=== PATIENT | male | born 1965 | race Caucasian/White ===

== ENCOUNTER 2020-05-06 09:27 | Outpatient (REF) | payer OTHER, SELFPAY ==
[2020-05-06 10:40] LABS: Alanine Aminotransferase 33 U/L (0-40); Albumin Level 4.3 g/dL (3.5-5.0); Alkaline Phosphatase 64 U/L (39-117); Anion Gap 11 (12-20); Aspartate Amino Transferase 23 U/L (5-37); Bilirubin Total 0.6 mg/dL (0.0-1.0); Blood Urea Nitrogen 20 mg/dL (9-16); Calcium 8.9 mg/dL (8.4-10.2); Carbon Dioxide 26 mmol/L (22-29); Chloride 106 mmol/L (96-108); Cholesterol 167 mg/dL; Estimated Glomerular Filt Rate > 60; Glucose Random 112 mg/dL (60-115); HDL Cholesterol 30 mg/dL; LDL Cholesterol Calculated 101 mg/dl; Potassium 4.3 mmol/l (3.3-5.1); Sodium 139 mmol/L (135-145); Total Protein 6.9 g/dL (6.5-8.0); Triglycerides 180 mg/dL
== END 2020-05-06 09:28 | disposition home or self-care (01) ==
LOC: HO.LAB 09:27
PROVIDERS: PCP Internal Medicine; Visit Provider Nurse Practitioner Family
DX: I10 Essential (primary) hypertension (principal); E78.00 Pure hypercholesterolemia, unspecified
CPT/HCPCS: 80053; 80061

== ENCOUNTER → 2020-07-28 16:06 | Outpatient (BNVA) | payer OTHER, SELFPAY | PROVIDERS: PCP Internal Medicine; Visit Provider Student in an Organized Health Care Education/Training Program | DX: Z76.89 Persons encountering health services in other specified circumstances (principal) ==

== ENCOUNTER 2020-08-07 13:19 | Outpatient (REF) | payer OTHER, SELFPAY ==
--- NOTE | 2020-08-07 13:59 | XR_ITS ---
EXAMINATION: XR SHOULDER, RIGHT CLINICAL INFORMATION: Right shoulder pain. COMPARISON: None TECHNIQUE: AP external rotation, Grashey, scapular Y, and axillary views of the right shoulder. FINDINGS: The glenohumeral joint space is normal. There is mild reduction in the right AC joint space with periarticular spurring. No visible acute fracture, dislocation or subluxation seen. The soft tissues are normal. XR/XR shoulder RT min 2V IMPRESSION: Mild degenerative arthritic changes right AC joint. No visible acute fracture, dislocation or subluxation seen.
[2020-08-07 14:05] LABS: MANUAL DIFF FLAG NO
[2020-08-07 14:26] LABS: Basophils Percent Auto 0.3 % (0-2); Eosinophils Absolute Auto 0.2 X10*3/uL (0.0-0.4); Eosinophils Percent Auto 1.8 % (0-4); Hematocrit 41.2 % (42-52); Imm Gran Abs Auto 0.05 X10*3/uL (0.00-0.03); Imm Gran Pct Auto 0.5 % (0.0-0.4); Lymphocytes Absolute Auto 1.5 X10*3/uL (1.2-4.9); Lymphocytes Percent Auto 16.6 % (20-40); Mean Corpuscular Hemoglobin 30.6 pg (27.0-33.0); Mean Corpuscular Volume 90.2 fL (80-98); Mean Platelet Volume 11.6 fL (9.4-12.4); Monocytes Absolute Auto 0.6 X10*3/uL (0.1-1.2); Monocytes Percent Auto 6.5 % (2-11); Neutrophils Absolute Auto 6.8 X10*3/uL (2.0-8.3); Neutrophils Percent Auto 74.3 % (45-73); Platelet Count 322 X10*3/uL (160-400); Red Blood Count 4.57 X10*6/uL (4.60-5.80); Red Cell Distribution Width 13.1 % (11.0-16.0); White Blood Count 9.1 X10*3/uL (4.8-10.8)
[2020-08-07 14:57] LABS: Alanine Aminotransferase 40 U/L (0-40); Albumin Level 4.5 g/dL (3.5-5.0); Alkaline Phosphatase 74 U/L (39-117); Anion Gap 15 (12-20); Aspartate Amino Transferase 29 U/L (5-37); Bilirubin Total 0.4 mg/dL (0.0-1.0); Blood Urea Nitrogen 18 mg/dL (9-16); C Reactive Protein 0.77 mg/dL (< or = 0.50); Calcium 9.5 mg/dL (8.4-10.2); Carbon Dioxide 26 mmol/L (22-29); Chloride 102 mmol/L (96-108); Estimated Glomerular Filt Rate > 60; Glucose Random 178 mg/dL (60-115); Potassium 4.2 mmol/l (3.3-5.1); Sodium 139 mmol/L (135-145); Total Protein 7.3 g/dL (6.5-8.0)
[2020-08-07 15:19] LABS: Erythrocyte Sedimentation Rate 33 MM/HR (0-15)
== END 2020-08-07 13:20 | disposition home or self-care (01) ==
LOC: HO.LAB 13:19
PROVIDERS: PCP Internal Medicine; Visit Provider Student in an Organized Health Care Education/Training Program
DX: M05.9 Rheumatoid arthritis with rheumatoid factor, unspecified (principal); M67.911 Unspecified disorder of synovium and tendon, right shoulder
CPT/HCPCS: 36415; 73030; 80053; 85025; 85652; 86140

== ENCOUNTER → 2020-11-24 09:33 | Outpatient (BNVA) | payer OTHER, SELFPAY | PROVIDERS: PCP Internal Medicine; Visit Provider Student in an Organized Health Care Education/Training Program ==

== ENCOUNTER 2020-11-26 17:14 | Outpatient (REF) | payer OTHER, SELFPAY ==
[2020-11-26 17:39] LABS: MANUAL DIFF FLAG NO
[2020-11-26 17:41] LABS: Basophils Absolute Auto 0.1 X10*3/uL (0.0-0.2); Basophils Percent Auto 0.5 % (0-2); Eosinophils Absolute Auto 0.3 X10*3/uL (0.0-0.4); Eosinophils Percent Auto 2.9 % (0-4); Hematocrit 39.7 % (42-52); Hemoglobin 13.9 g/dl (14.0-18.0); Imm Gran Abs Auto 0.11 X10*3/uL (0.00-0.03); Imm Gran Pct Auto 1.1 % (0.0-0.4); Lymphocytes Absolute Auto 2.2 X10*3/uL (1.2-4.9); Lymphocytes Percent Auto 21.1 % (20-40); Mean Corpuscular Hemoglobin 31.8 pg (27.0-33.0); Mean Corpuscular Volume 90.8 fL (80-98); Mean Platelet Volume 11.6 fL (9.4-12.4); Monocytes Absolute Auto 0.8 X10*3/uL (0.1-1.2); Monocytes Percent Auto 7.7 % (2-11); Neutrophils Absolute Auto 6.9 X10*3/uL (2.0-8.3); Neutrophils Percent Auto 66.7 % (45-73); Platelet Count 304 X10*3/uL (160-400); Red Blood Count 4.37 X10*6/uL (4.60-5.80); Red Cell Distribution Width 13.1 % (11.0-16.0); White Blood Count 10.3 X10*3/uL (4.8-10.8)
[2020-11-26 17:59] LABS: Alanine Aminotransferase 42 U/L (0-40); Albumin Level 4.3 g/dL (3.5-5.0); Alkaline Phosphatase 73 U/L (39-117); Anion Gap 15 (12-20); Aspartate Amino Transferase 31 U/L (5-37); Bilirubin Total 0.5 mg/dL (0.0-1.0); Blood Urea Nitrogen 15 mg/dL (9-16); C Reactive Protein 0.49 mg/dL (< or = 0.50); Calcium 9.4 mg/dL (8.4-10.2); Carbon Dioxide 24 mmol/L (22-29); Chloride 105 mmol/L (96-108); Estimated Glomerular Filt Rate > 60; Glucose Random 99 mg/dL (60-115); Potassium 4.2 mmol/L (3.3-5.1); Sodium 140 mmol/L (135-145); Total Protein 7.3 g/dL (6.5-8.0)
[2020-11-26 18:25] LABS: Erythrocyte Sedimentation Rate 23 MM/HR (0-15)
== END 2020-11-26 17:15 | disposition home or self-care (01) ==
LOC: HO.LAB 17:14
PROVIDERS: PCP Internal Medicine; Visit Provider Student in an Organized Health Care Education/Training Program
DX: M05.9 Rheumatoid arthritis with rheumatoid factor, unspecified (principal)
CPT/HCPCS: 36415; 80053; 85025; 85652; 86140

== ENCOUNTER → 2021-02-25 10:31 | Outpatient (BNVA) | payer OTHER, SELFPAY | PROVIDERS: PCP Internal Medicine; Visit Provider Nurse Practitioner Family ==

== ENCOUNTER 2021-03-02 14:05 | Outpatient (REF) | payer OTHER, SELFPAY ==
[2021-03-02 15:11] LABS: MANUAL DIFF FLAG NO
[2021-03-02 15:16] LABS: Basophils Percent Auto 0.4 % (0-2); Eosinophils Absolute Auto 0.2 X10*3/uL (0.0-0.4); Eosinophils Percent Auto 2.2 % (0-4); Hematocrit 41.3 % (42-52); Imm Gran Abs Auto 0.07 X10*3/uL (0.00-0.03); Imm Gran Pct Auto 0.7 % (0.0-0.4); Lymphocytes Absolute Auto 1.7 X10*3/uL (1.2-4.9); Lymphocytes Percent Auto 18.2 % (20-40); Mean Corpuscular HGB Conc 33.9 g/dl (31.0-36.0); Mean Corpuscular Hemoglobin 29.7 pg (27.0-33.0); Mean Corpuscular Volume 87.7 fL (80-98); Mean Platelet Volume 12.7 fL (9.4-12.4); Monocytes Absolute Auto 0.9 X10*3/uL (0.1-1.2); Monocytes Percent Auto 9.2 % (2-11); Neutrophils Absolute Auto 6.5 X10*3/uL (2.0-8.3); Neutrophils Percent Auto 69.3 % (45-73); Platelet Count 241 X10*3/uL (160-400); Red Blood Count 4.71 X10*6/uL (4.60-5.80); Red Cell Distribution Width 12.8 % (11.0-16.0); White Blood Count 9.4 X10*3/uL (4.8-10.8)
[2021-03-02 15:39] LABS: Alanine Aminotransferase 45 U/L (0-40); Albumin Level 4.1 g/dL (3.5-5.0); Alkaline Phosphatase 91 U/L (39-117); Anion Gap 13 (12-20); Aspartate Amino Transferase 34 U/L (5-37); Bilirubin Total 0.4 mg/dL (0.0-1.0); Blood Urea Nitrogen 15 mg/dL (9-16); C Reactive Protein 1.11 mg/dL (< or = 0.50); Calcium 9.3 mg/dL (8.4-10.2); Carbon Dioxide 27 mmol/L (22-29); Chloride 106 mmol/L (96-108); Estimated Glomerular Filt Rate > 60; Glucose Random 148 mg/dL (60-115); Sodium 142 mmol/L (135-145); Total Protein 6.8 g/dL (6.5-8.0)
[2021-03-02 16:00] LABS: Erythrocyte Sedimentation Rate 34 MM/HR (0-15)
== END 2021-03-02 14:06 | disposition home or self-care (01) ==
LOC: HO.LAB 14:05
PROVIDERS: PCP Internal Medicine; Visit Provider Nurse Practitioner Family
DX: M05.9 Rheumatoid arthritis with rheumatoid factor, unspecified (principal)
CPT/HCPCS: 36415; 80053; 85025; 85652; 86140

== ENCOUNTER → 2021-05-28 09:46 | Outpatient (BNVA) | payer OTHER, SELFPAY | PROVIDERS: PCP Internal Medicine; Visit Provider Nurse Practitioner Family ==

== ENCOUNTER 2021-08-26 14:47 | Outpatient (REF) | payer OTHER, SELFPAY ==
[2021-08-26 15:06] LABS: MANUAL DIFF FLAG NO
[2021-08-26 15:33] LABS: Basophils Percent Auto 0.2 % (0-2); Eosinophils Absolute Auto 0.2 X10*3/uL (0.0-0.4); Eosinophils Percent Auto 2.4 % (0-4); Hemoglobin 13.5 g/dl (14.0-18.0); Imm Gran Abs Auto 0.06 X10*3/uL (0.00-0.03); Imm Gran Pct Auto 0.7 % (0.0-0.4); Lymphocytes Absolute Auto 1.7 X10*3/uL (1.2-4.9); Lymphocytes Percent Auto 18.7 % (20-40); Mean Corpuscular HGB Conc 33.8 g/dl (31.0-36.0); Mean Corpuscular Hemoglobin 29.6 pg (27.0-33.0); Mean Corpuscular Volume 87.7 fL (80.0-98.0); Mean Platelet Volume 12.1 fL (9.4-12.4); Monocytes Absolute Auto 0.9 X10*3/uL (0.1-1.2); Monocytes Percent Auto 9.4 % (2-11); Neutrophils Absolute Auto 6.3 x10*3/uL (2.0-8.3); Neutrophils Percent Auto 68.6 % (45-73); Platelet Count 246 X10*3/uL (160-400); Red Blood Count 4.56 X10*6/uL (4.60-5.80); Red Cell Distribution Width 13.2 % (11.0-16.0); White Blood Count 9.2 X10*3/uL (4.8-10.8)
[2021-08-26 16:15] LABS: Erythrocyte Sedimentation Rate 51 MM/HR (0-15)
[2021-08-26 18:53] LABS: Alanine Aminotransferase 40 U/L (0-40); Alkaline Phosphatase 75 U/L (39-117); Anion Gap 12 (12-20); Aspartate Amino Transferase 27 U/L (5-37); Bilirubin Total 0.3 mg/dL (0.0-1.0); Blood Urea Nitrogen 19 mg/dL (9-16); C Reactive Protein 0.88 mg/dL (< or = 0.50); Calcium 9.3 mg/dL (8.4-10.2); Carbon Dioxide 25 mmol/L (22-29); Chloride 108 mmol/L (96-108); Estimated Glomerular Filt Rate > 60; Glucose Random 154 mg/dL (60-115); Potassium 4.1 mmol/L (3.3-5.1); Sodium 141 mmol/L (135-145); Total Protein 6.6 g/dL (6.5-8.0)
== END 2021-08-26 14:48 | disposition home or self-care (01) ==
LOC: HO.LAB 14:47
PROVIDERS: PCP Internal Medicine; Visit Provider Nurse Practitioner Family
DX: M05.9 Rheumatoid arthritis with rheumatoid factor, unspecified (principal)
CPT/HCPCS: 36415; 80053; 85025; 85652; 86140

== ENCOUNTER → 2021-08-27 10:01 | Outpatient (BNVA) | payer OTHER, SELFPAY | PROVIDERS: PCP Internal Medicine; Visit Provider Nurse Practitioner Family ==

== ENCOUNTER 2021-09-10 22:10 | Emergency (ER) | payer OTHER, SELFPAY ==
--- NOTE | ~2021-09-10 | XR_ITS ---
EXAMINATION: XR CHEST CLINICAL INFORMATION: Chest pain COMPARISON: Chest x-ray 11/27/2018 TECHNIQUE: Frontal view of the chest was obtained. FINDINGS: The lungs are well-expanded and clear. Heart size is borderline enlarged. Pulmonary vascularity is normal. There is mild spondylosis dorsal spine. No lytic process seen. XR/XR chest 1V IMPRESSION: Borderline cardiomegaly without acute process. No change from 11/27/2018
[2021-09-10 22:14] VITALS: PULSE 84; RESP 16; TEMP 36.7; O2SAT 97; BMI 43.2
--- NOTE | 2021-09-10 22:16 | ECG_ITS ---
Test Reason : chest pain Blood Pressure : / mmHG Vent. Rate : 069 BPM Atrial Rate : 069 BPM P-R Int : 172 ms QRS Dur : 102 ms QT Int : 396 ms P-R-T Axes : 037 043 007 degrees QTc Int : 424 ms Normal sinus rhythm Incomplete right bundle branch block Nonspecific T wave abnormality Abnormal ECG When compared with ECG of 12-MAR-2016 09:26, Nonspecific T wave abnormality now evident in Anterolateral leads Referred By: Generic ED Physician Electronically Signed By:DALTON BOYD
[2021-09-10 22:17] VITALS: BP 190/84
[2021-09-10 22:36] LABS: MANUAL DIFF FLAG NO
[2021-09-10 22:38] LABS: Basophils Absolute Auto 0.1 X10*3/uL (0.0-0.2); Basophils Percent Auto 0.3 % (0-2); Eosinophils Absolute Auto 0.2 X10*3/uL (0.0-0.4); Hematocrit 40.6 % (42.0-52.0); Hemoglobin 13.9 g/dl (14.0-18.0); Imm Gran Pct Auto 0.7 % (0.0-0.4); Lymphocytes Absolute Auto 1.6 X10*3/uL (1.2-4.9); Lymphocytes Percent Auto 10.8 % (20-40); Mean Corpuscular HGB Conc 34.2 g/dl (31.0-36.0); Mean Corpuscular Hemoglobin 29.8 pg (27.0-33.0); Mean Corpuscular Volume 86.9 fL (80.0-98.0); Mean Platelet Volume 11.8 fL (9.4-12.4); Neutrophils Absolute Auto 11.6 x10*3/uL (2.0-8.3); Neutrophils Percent Auto 80.2 % (45-73); Platelet Count 268 X10*3/uL (160-400); Red Blood Count 4.67 X10*6/uL (4.60-5.80); Red Cell Distribution Width 13.3 % (11.0-16.0); White Blood Count 14.5 X10*3/uL (4.8-10.8)
[2021-09-10 22:52] LABS: Anion Gap 11 (12-20); Blood Urea Nitrogen 15 mg/dL (9-16); Calcium 9.5 mg/dL (8.4-10.2); Carbon Dioxide 30 mmol/L (22-29); Chloride 100 mmol/L (96-108); Creatinine Clr Calc Pharmacy 110.2; Estimated Glomerular Filt Rate > 60; Glucose Random 196 mg/dL (60-115); Potassium 4.4 mmol/L (3.3-5.1); Sodium 137 mmol/L (135-145)
[2021-09-10 23:00] LABS: Troponin-I High Sensitivity 7.1 ng/L (<3.5-35.0)
--- NOTE | 2021-09-10 23:34 | ED.CHESTPAIN ---
HPI - Chest Pain General Chief Complaint: Chest Pain Stated Complaint: chest pain Time Seen by Provider: 09/10/21 22:11 Source: patient Mode of arrival: ambulatory Limitations: no limitations History of Present Illness HPI narrative: symptoms worse after eating crazy sharif pasta tonight - chicken/sausage. complaint: chest pain and chest heaviness Onset (ago): hour(s) (started around 7pm) Timing of current episode: constant Prior episodes: Yes Onset: during rest Pain location: substernal Pain radiation: none (but he did feel his arm was cold) Severity: moderate Quality: heaviness Relieving factors: nothing Exacerbating factors: nothing Context: other (had COVID at start of July) Associated symptoms: nausea and dyspnea Treatment prior to arrival: none Related Data Home Medications Medication Instructions Recorded Confirmed tadalafil 20 mg tablet (Cialis) 20 mg PO DAILY PRN 04/23/20 02/25/21 Previous Rx's Medication Instructions Recorded baclofen 10 mg tablet 10 mg PO BEDTIME PRN #90 tab 11/24/20 amlodipine 5 mg tablet 5 mg PO DAILY #90 tab 11/26/20 gemfibrozil 600 mg tablet 600 mg PO BID #180 tab 05/03/21 leflunomide 10 mg tablet 10 mg PO DAILY #30 tab 08/27/21 ondansetron 4 mg disintegrating 4 mg PO Q8H PRN #20 tab 09/11/21 tablet Allergies Allergy/AdvReac Type Severity Reaction Status Date / Time No Known Allergies Allergy Verified 08/27/21 10:17 [No Known Allergies*] Review of Systems Review of Systems: Constitutional : No Weight loss, No Fever, No Chills ENT/Mouth : No sore throat, No Rhinorrhea Eyes: No Eye Pain, No Swelling Cardiovascular : pos Chest Pain, pos SOB, no Dyspnea on Exertion, No Orthopnea, No Edema, No Palpitations Respiratory : No Cough, No Sputum Gastrointestinal : pos Nausea, No Vomiting, No Diarrhea, No abdominal Pain, No Hematochezia, No Melena Genitourinary : No Dysuria, No Urinary Frequency Musculoskeletal : No joint pain, No Myalgias, No Joint Swelling Skin : No Skin Lesions, No rash Neuro : No Weakness, No Numbness, No Dizziness, No Headache Psych : No Anxiety/Panic, No Depression Heme/Lymph: No Bruising, No Lymphadenopathy Endocrine : No Polyuria, No Polydipsia All other systems reviewed and are negative [facility] Past Medical History Attestation statement: The following information was validated with the patient. Medical History Encounter for general adult medical examination without abnormal findings Seropositive rheumatoid arthritis Surgical History H/O rectal polypectomy Family History Family History Brother No problems noted. Brother No problems noted. Sister No problems noted. Sister No problems noted. Social History Social History Alcohol intake: current Patient Tobacco Use Status: Never used Tobacco e-Cigarette/Vaping Use: Never Used Advance Directives: No Physical Exam Vital Signs: Vital Signs: Last Vital Signs Temp 98.0 F 09/10/21 22:14 Pulse 70 09/11/21 02:05 Resp 13 09/11/21 02:05 BP 149/68 H 09/11/21 02:05 Pulse Ox 96 09/11/21 02:05 BMI result Body Mass Index 43.2 Appearance: Alert. Oriented X3. No acute distress. Eyes: Pupils equal, round and reactive to light. ENT: Pharynx normal. Neck: Normal inspection. Neck supple. CVS: Normal heart rate and rhythm. Pulses normal. L radial pulse 2+ BCR in all digits Respiratory: No respiratory distress. Breath sounds normal. Abdomen: Soft and non-tender. Skin: Skin warm and dry. Normal skin color. Normal skin turgor. Extremities: trace pitting lower extremity edema. No calf ttp 2+ DP pulses bilaterally Neuro: Oriented X 3. No motor deficit. No sensory deficit. Course Course Course Narrative: patient reports improvement - reportedly vomited after nitro and after that he felt much better and had relief of his symptoms after the vomit? his dinner as possible cause of his discomfort tonight repeat trop negative at 6hr cassia EKG no sig changes from 2016 (has had inf t wave inversions and nonspecific t wave changes in ant / lateral ) has slight new incomplete RBBB but no EKG since 2016 ddimer negative, distal pulses intact, BNP negative suspect possible GI cause but given risk factors will discuss follow up with his PCP MDM - Chest Pain MDM Narrative Medical decision making narrative: 56 yo male with hx of HTN, HLD RA on immunomodulator, chronic back pain, LOGAN on CPAP comes in with c/o chest pain that started around 7pm. His family does have hx of CAD in the past but he himself has not had issues (has had visits for chest pain). At this time will obtain troponin x 2, nitro for pain, EKG - Could be acs, dissection seems unlikely, PE unlikely no hypoxia not pleuritic no tachcyardia - dispo per results and findings. Lab Data Result diagrams: 09/10/21 22:31 09/10/21 22:31 Labs: Lab Results 09/10/21 09/10/21 09/10/21 Range/Units 22:31 22:31 22:31 WBC 14.5 H (4.8-10.8) X10*3/uL RBC 4.67 (4.60-5.80) X10*6/uL Hgb 13.9 L (14.0-18.0) g/dl Hct 40.6 L (42.0-52.0) % MCV 86.9 (80.0-98.0) fL MCH 29.8 (27.0-33.0) pg MCHC 34.2 (31.0-36.0) g/dl RDW 13.3 (11.0-16.0) % Plt Count 268 (160-400) X10*3/uL MPV 11.8 (9.4-12.4) fL Immature Gran % (Auto) 0.7 H (0.0-0.4) % Neut % (Auto) 80.2 H (45-73) % Lymph % (Auto) 10.8 L (20-40) % [place] % (Auto) 7.0 (2-11) % Eos % (Auto) 1.0 (0-4) % Baso % (Auto) 0.3 (0-2) % Lymph # (Auto) 1.6 (1.2-4.9) X10*3/uL [place] # (Auto) 1.0 (0.1-1.2) X10*3/uL Eos # (Auto) 0.2 (0.0-0.4) X10*3/uL Baso # (Auto) 0.1 (0.0-0.2) X10*3/uL Abs Immat Gran (auto) 0.10 H (0.00-0.03) X10*3/uL Absolute Neuts (auto) 11.6 H (2.0-8.3) x10*3/uL Absolute Nucleated RBC 0.000 (0.0-0.012) X10*3/uL Nucleated RBC % (auto) 0.0 (0.0-0.2) /100WBC PT (9.9-13.0) SEC INR (0.9-1.1) D-Dimer High Sensitivty NG/ML Sodium 137 (135-145) mmol/L Potassium 4.4 (3.3-5.1) mmol/L Chloride 100 (96-108) mmol/L Carbon Dioxide 30 H (22-29) mmol/L Anion Gap 11 L (12-20) BUN 15 (9-16) mg/dL Creatinine 0.89 (0.5-1.4) mg/dL Estim Creat Clear Calc 110.2 Estimated GFR > 60 Random Glucose 196 H (60-115) mg/dL Calcium 9.5 (8.4-10.2) mg/dL Troponin I High Sens 7.1 (<3.5-35.0) ng/L B-Natriuretic Peptide < 10 (<100) pg/mL 09/11/21 09/11/21 Range/Units 01:12 01:12 WBC (4.8-10.8) X10*3/uL RBC (4.60-5.80) X10*6/uL Hgb (14.0-18.0) g/dl Hct (42.0-52.0) % MCV (80.0-98.0) fL MCH (27.0-33.0) pg MCHC (31.0-36.0) g/dl RDW (11.0-16.0) % Plt Count (160-400) X10*3/uL MPV (9.4-12.4) fL Immature Gran % (Auto) (0.0-0.4) % Neut % (Auto) (45-73) % Lymph % (Auto) (20-40) % [place] % (Auto) (2-11) % Eos % (Auto) (0-4) % Baso % (Auto) (0-2) % Lymph # (Auto) (1.2-4.9) X10*3/uL [place] # (Auto) (0.1-1.2) X10*3/uL Eos # (Auto) (0.0-0.4) X10*3/uL Baso # (Auto) (0.0-0.2) X10*3/uL Abs Immat Gran (auto) (0.00-0.03) X10*3/uL Absolute Neuts (auto) (2.0-8.3) x10*3/uL Absolute Nucleated RBC (0.0-0.012) X10*3/uL Nucleated RBC % (auto) (0.0-0.2) /100WBC PT 12.7 (9.9-13.0) SEC INR 1.1 (0.9-1.1) D-Dimer High Sensitivty < 150 NG/ML Sodium (135-145) mmol/L Potassium (3.3-5.1) mmol/L Chloride (96-108) mmol/L Carbon Dioxide (22-29) mmol/L Anion Gap (12-20) BUN (9-16) mg/dL Creatinine (0.5-1.4) mg/dL Estim Creat Clear Calc Estimated GFR Random Glucose (60-115) mg/dL Calcium (8.4-10.2) mg/dL Troponin I High Sens 6.1 (<3.5-35.0) ng/L B-Natriuretic Peptide (<100) pg/mL ECG Data ECG #1: Attestation: I personally reviewed and interpreted this ECG as follows: ECG interpretation date: 09/10/21 ECG interpretation time: 23:48 Interpretation: Rate: 69 Rhythm: NSR [place]: normal Normal P waves. Normal JONN. widened QRS complex. ST T wave : inverted III and aVF, nonspecific anterios leads no JERAMY qTC: normal prior studies: no sig changes from 2016 The study has been interpreted contemporaneously by me. EKG#2 Rate: 81 Rhythm: NSR [place]: left Normal P waves. Normal JONN. Normal QRS complex. ST T wave : no JERAMY, inverted III and aVF, nonspecific anterior leads qTC: normal prior studies: no sig change The study has been interpreted contemporaneously by me. . Discharge Plan Discharge Clinical Impression: Chest pain Qualifiers: Chest pain type: precordial pain Qualified Code(s): R07.2 - Precordial pain Vomiting Qualifiers: Vomiting type: unspecified Nausea presence: with nausea Qualified Code(s): R11.2 - Nausea with vomiting, unspecified Patient Disposition: Home, Self-Care Instructions: Chest Pain (ED), Acute Nausea and Vomiting (ED) Additional Instructions: return to ED for any worsening symptoms or concerns need to call primary care doctor for outpatient stress test avoid any heavy rich foods for 3 days Prescriptions: New ondansetron 4 mg tablet,disintegrating 4 mg PO Q8H PRN (Reason: nausea and vomiting) Qty: 20 0RF No Action amlodipine 5 mg tablet 5 mg PO DAILY Qty: 90 8RF gemfibrozil 600 mg tablet 600 mg PO BID Qty: 180 8RF tadalafil [Cialis] 20 mg tablet 20 mg PO DAILY PRN0RF Rx Instructions: administer approximately 30min before sexual activity; do not use more than 1 dose per 24hrs baclofen 10 mg tablet 10 mg PO BEDTIME PRN (Reason: spasms) Qty: 90 1RF leflunomide 10 mg tablet 10 mg PO DAILY Qty: 30 2RF Referrals: Eduardo Mcclain MD [Primary Care Provider] - 2 days (Monday) Stand Alone Forms: Work/School Release
[2021-09-10 23:49] VITALS: BP 204/95; PULSE 77
[2021-09-10] MEDS: Nitroglycerin 0.4 MG TAB.SUBL SUBLINGUAL (23:49)
[2021-09-10] MEDS: ondansetron HCL 4 MG/2 ML VIAL IVPUSH (23:51)
[2021-09-10] MEDS: Aspirin 81 MG TAB.CHEW 324 MG PO (23:51)
--- NOTE | 2021-09-11 00:11 | PC.NURSE ---
PT vomited after receiving IV zofran. PT stated that he felt better afterwards. BP is still elevated , PT is reporting decreased CP.
[2021-09-11 00:12] VITALS: BP 173/93; PULSE 94; RESP 18; O2SAT 95
[2021-09-11 00:34] LABS: B Type Natriuretic Peptide < 10 pg/mL (<100)
[2021-09-11 01:22] LABS: INTERNATIONAL NORM RATIO 1.1 (0.9-1.1); Prothrombin Time 12.7 SEC (9.9-13.0)
[2021-09-11 01:39] LABS: Troponin-I High Sensitivity 6.1 ng/L (<3.5-35.0)
[2021-09-11 02:05] VITALS: BP 149/68; PULSE 70; RESP 13; O2SAT 96
[2021-09-11 02:07] LABS: D Dimer High Sensitivity < 150 NG/ML
[2021-09-11] MEDS: Lidocaine HCl Viscous 2 % 15 ML SOLUTION MUCOUS MEM (02:22)
[2021-09-11] MEDS: Magnesium Hydrox/Alum Hydrox 30 ML ORAL.SUSP PO (02:22)
== END 2021-09-11 03:02 | disposition home or self-care (01) ==
PROVIDERS: Emergency Provider Emergency Medicine; PCP Internal Medicine
DX: R07.2 Precordial pain (principal); R11.2 Nausea with vomiting, unspecified; R60.0 Localized edema; R06.02 Shortness of breath; I10 Essential (primary) hypertension; E66.01 Morbid (severe) obesity due to excess calories
CPT/HCPCS: 36415; 71045; 80048; 83880; 84484; 85025; 85379; 85610; 93005; 96374; 99284; J2405

== ENCOUNTER → 2021-10-28 14:17 | Outpatient (BNVA) | payer OTHER, SELFPAY | PROVIDERS: PCP Internal Medicine; Referring Provider Internal Medicine; Visit Provider Internal Medicine Cardiovascular Disease | DX: Z13.89 Encounter for screening for other disorder (principal) ==

== ENCOUNTER → 2021-11-25 07:57 | Outpatient (REF) | payer OTHER, SELFPAY ==
--- NOTE | 2021-11-25 08:02 | CA_ITS ---
Acquisition Time: 2021-11-25 08:15:06 Total Exercise Time: 00:07:02 Test Indications: CP Medications: SEE CHART Protocol: LINA Max HR: 146 BPM 89% of Pred: 164 BPM Max BP: 160/080 mmHG Max Work Load: 8.5 METS Exercise stress test with exercise 7 min 2 sec of Lina protocol, with moderate shortness of breath, no chest discomfort, with isolated PVCs in stage 3, with normotensive response to exercise, with baseline and later recovery EKG showing T wave abnormality/ inversion inferiorly and V3-V6, with EKG at peak exercise showing mild ST abnormality. Overall nondiagnostic for ischemia. Will order an exercise nuclear stress test to further eval for ischemia. Test reviewed with Dr Garcia Referred By: Mendoza Garcia Overread By: AMOR HOFF
== END ==
LOC: HO.CARD 07:57
PROVIDERS: PCP Internal Medicine; Visit Provider Internal Medicine Cardiovascular Disease
DX: R07.9 Chest pain, unspecified (principal)
CPT/HCPCS: 93017

== ENCOUNTER → 2021-12-09 08:00 | Outpatient (BNVA) | payer OTHER, SELFPAY | PROVIDERS: PCP Internal Medicine; Visit Provider Nurse Practitioner Family | DX: M05.9 Rheumatoid arthritis with rheumatoid factor, unspecified (principal) ==

== ENCOUNTER 2021-12-15 13:31 | Outpatient (REF) | payer OTHER, SELFPAY ==
[2021-12-15 13:49] LABS: MANUAL DIFF FLAG NO
[2021-12-15 14:20] LABS: Basophils Absolute Auto 0.1 X10*3/uL (0.0-0.2); Basophils Percent Auto 0.7 % (0-2); Eosinophils Absolute Auto 0.3 X10*3/uL (0.0-0.4); Eosinophils Percent Auto 3.2 % (0-4); Hematocrit 41.6 % (42.0-52.0); Hemoglobin 14.1 g/dl (14.0-18.0); Imm Gran Abs Auto 0.06 X10*3/uL (0.00-0.03); Imm Gran Pct Auto 0.7 % (0.0-0.4); Lymphocytes Absolute Auto 1.7 X10*3/uL (1.2-4.9); Lymphocytes Percent Auto 20.5 % (20-40); Mean Corpuscular HGB Conc 33.9 g/dl (31.0-36.0); Mean Corpuscular Hemoglobin 29.1 pg (27.0-33.0); Mean Platelet Volume 12.6 fL (9.4-12.4); Monocytes Absolute Auto 0.8 X10*3/uL (0.1-1.2); Neutrophils Absolute Auto 5.5 x10*3/uL (2.0-8.3); Neutrophils Percent Auto 65.9 % (45-73); Platelet Count 259 X10*3/uL (160-400); Red Blood Count 4.84 X10*6/uL (4.60-5.80); Red Cell Distribution Width 13.5 % (11.0-16.0); White Blood Count 8.4 X10*3/uL (4.8-10.8)
[2021-12-15 14:46] LABS: Alanine Aminotransferase 92 U/L (0-40); Alkaline Phosphatase 118 U/L (39-117); Anion Gap 13 (12-20); Aspartate Amino Transferase 56 U/L (5-37); Bilirubin Total 0.3 mg/dL (0.0-1.0); Blood Urea Nitrogen 13 mg/dL (9-16); C Reactive Protein 0.69 mg/dL (< or = 0.50); Calcium 9.3 mg/dL (8.4-10.2); Carbon Dioxide 24 mmol/L (22-29); Chloride 105 mmol/L (96-108); Estimated Glomerular Filt Rate > 60; Glucose Random 170 mg/dL (60-115); Potassium 4.1 mmol/L (3.3-5.1); Sodium 138 mmol/L (135-145); Total Protein 6.8 g/dL (6.5-8.0)
[2021-12-15 14:59] LABS: Erythrocyte Sedimentation Rate 29 MM/HR (0-15)
== END 2021-12-15 13:32 | disposition home or self-care (01) ==
LOC: HO.LAB 13:31
PROVIDERS: PCP Internal Medicine; Visit Provider Nurse Practitioner Family
DX: M05.9 Rheumatoid arthritis with rheumatoid factor, unspecified (principal)
CPT/HCPCS: 36415; 80053; 85025; 85652; 86140

== ENCOUNTER → 2021-12-30 14:46 | Outpatient (REF) | payer OTHER, SELFPAY ==
--- NOTE | 2021-12-30 14:48 | CA_ITS ---
Transthoracic Echocardiogram Patient (Last, First, Middle): Tru Chavez, Gender: Male Date of : 1965 Age: 56 Procedure Date: 12/30/2021 Procedure Type: Transthoracic Echocardiogram Location: OP Height: 165.1 cm Weight: 114.31 kg BSA: 2.18 m2 Heart Rate: bpm BP: 148 / 88 mmHg Parquetry Layer: DERRELL Referring MD: Mendoza Garcia MD Symptoms: R07.9 - Chest pain, unspecified Study Quality: Technically Difficult/Contrast ECG Rhythm: Sinus Conclusions: - The left ventricular systolic function is normal. The visually estimated ejection fraction is between 60-65%. - No obvious valvular pathology seen on this study. Findings Procedure Information Contrast agent, definity, is being given per protocol without apparent complications. Left Ventricle Normal left ventricular cavity size. The left ventricular systolic function is normal. The visually estimated ejection fraction is between 60-65%. There is no evidence of regional wall motion abnormalities. Diastolic function is normal for age. There is mild septal asymmetric hypertrophy. Right Ventricle Normal right ventricular cavity size and systolic function. Atria Both atria are normal in size. Aortic Valve The aortic valve was not well visualized. There is no aortic valve stenosis. There is no aortic valve regurgitation. Mitral Valve The mitral valve appears normal. There is no mitral valve regurgitation. There is no mitral valve stenosis. Pulmonic Valve The pulmonic valve is likely normal. Tricuspid Valve There is no tricuspid valve regurgitation. Tricuspid regurgitation envelope is inadequate for calculation of right ventricular systolic pressure. Great Vessels The asc aorta is normal in size. Venous The inferior vena cava is normal in size and collapses greater than 50% with inspiration. Pericardium/Pleural There is no evidence of pericardial effusion. Prior Study Comparison No significant change compared to prior study dated: 03/24/2016. Recommendations, Care & Conclusions No obvious valvular pathology seen on this study. Measurements 2D Linear Measurements IVSd: 1.09 0.6-0.9/0.6-1.0 cm LVIDd: 5.28 3.9-5.3/4.2-5.9 cm LVIDd Index: 2.42 2.4-3.2/2.2-3.1 cm/m2 LVIDs: 3.92 2.0-3.6 cm LVPWd: 0.96 0.7-1.1 cm LA Diam: 3.60 2.7-3.8/3.0-4.0 cm LAIDs Index: 1.65 1.5-2.3 cm/m2 LV Mass: 257.00 67-162/88-224 g LV Mass Index: 117.89 43-95/49-115 g/m2 LVOT Diam: 2.00 3.0+(-)1.3 cm 2D Systolic Function EF 4C: 72.90 >55% EF 2C: 69.60 >55% EF BiP: 71.10 >55% Mitral Valve MV Pk E: 1.06 MV PK A: 0.87 MV Decel Time: 302.00 E/A: 1.20 E'Lateral: 8.92 E'Medial: 7.40 E/E' Med: 14.30 E/E' Lat: 11.90 PHT: 88.00 MVA PHT: 2.50 Decel [place]: 3.52 Aortic Valve AoV Pk David: 1.48 AoV Mn David: 0.93 AoV VTI: 0.31 AoV Pk Grad: 9.00 Aov Mn Grad: 4.00 CATHERINE Cont.VTI: 2.94 LVOT LVOT Pk David: 1.30 LVOT Mn David: 0.83 LVOT VTI: 0.29 LVOT Pk Grad: 7.00 LVOT Mn Grad: 3.00 LVOT Diam: 2.00 LVOT Area: 3.14 Diastolic Function MV Pk E: 1.06 MV Pk A: 0.87 E/A: 1.20 E'Medial: 7.40 E/E' Med: 14.30 E' Laterial: 8.92 E/E' Lat: 11.90 Right Ventricle TAPSE (mm): 25.80 TVS' David: 15.10 Tricuspid Valve RA Press: 3.00 Great Vessels Aorta Sinus of Valsalva: 3.12 2.0-3.[address] [place]: 2.75 1.7-3.4 cm Ao Asc: 2.90 2.1-3.4 cm Updated in Other Vendor System with Status of Final Jeromy Schaefer MD electronically signed on 01/01/2022 2:27:25 PM with status of Final
== END ==
LOC: HO.CARD 14:46
PROVIDERS: PCP Internal Medicine; Visit Provider Internal Medicine Cardiovascular Disease
DX: R07.9 Chest pain, unspecified (principal)
CPT/HCPCS: 93306; Q9957

== ENCOUNTER 2022-01-12 12:59 | Outpatient (REF) | payer OTHER, SELFPAY ==
[2022-01-12 13:14] LABS: MANUAL DIFF FLAG NO
[2022-01-12 14:08] LABS: Basophils Absolute Auto 0.1 X10*3/uL (0.0-0.2); Basophils Percent Auto 0.6 % (0-2); Eosinophils Absolute Auto 0.2 X10*3/uL (0.0-0.4); Eosinophils Percent Auto 2.1 % (0-4); Hematocrit 44.4 % (42.0-52.0); Hemoglobin 14.4 g/dl (14.0-18.0); Imm Gran Abs Auto 0.05 X10*3/uL (0.00-0.03); Imm Gran Pct Auto 0.6 % (0.0-0.4); Lymphocytes Absolute Auto 1.6 X10*3/uL (1.2-4.9); Lymphocytes Percent Auto 18.8 % (20-40); Mean Corpuscular HGB Conc 32.4 g/dl (31.0-36.0); Mean Corpuscular Hemoglobin 28.7 pg (27.0-33.0); Mean Corpuscular Volume 88.4 fL (80.0-98.0); Mean Platelet Volume 12.5 fL (9.4-12.4); Monocytes Absolute Auto 0.8 X10*3/uL (0.1-1.2); Monocytes Percent Auto 9.5 % (2-11); Neutrophils Absolute Auto 5.6 x10*3/uL (2.0-8.3); Neutrophils Percent Auto 68.4 % (45-73); Platelet Count 273 X10*3/uL (160-400); Red Blood Count 5.02 X10*6/uL (4.60-5.80); Red Cell Distribution Width 13.3 % (11.0-16.0); White Blood Count 8.2 X10*3/uL (4.8-10.8)
[2022-01-12 14:42] LABS: Alanine Aminotransferase 214 U/L (0-40); Albumin Level 4.2 g/dL (3.5-5.0); Alkaline Phosphatase 188 U/L (39-117); Anion Gap 12 (12-20); Aspartate Amino Transferase 152 U/L (5-37); Bilirubin Total 0.5 mg/dL (0.0-1.0); Blood Urea Nitrogen 15 mg/dL (9-16); C Reactive Protein 0.74 mg/dL (< or = 0.50); Calcium 9.3 mg/dL (8.4-10.2); Carbon Dioxide 27 mmol/L (22-29); Chloride 105 mmol/L (96-108); Estimated Glomerular Filt Rate > 60; Glucose Random 114 mg/dL (60-115); Potassium 4.5 mmol/L (3.3-5.1); Sodium 139 mmol/L (135-145)
[2022-01-12 15:13] LABS: Erythrocyte Sedimentation Rate 45 MM/HR (0-15)
== END 2022-01-12 13:00 | disposition home or self-care (01) ==
LOC: HO.LAB 12:59
PROVIDERS: PCP Internal Medicine; Visit Provider Nurse Practitioner Family
DX: M05.9 Rheumatoid arthritis with rheumatoid factor, unspecified (principal)
CPT/HCPCS: 36415; 80053; 85025; 85652; 86140

== ENCOUNTER 2022-01-13 12:52 | Outpatient (REF) | payer OTHER, SELFPAY ==
[2022-01-13 13:44] LABS: Alanine Aminotransferase 206 U/L (0-40); Albumin Level 4.2 g/dL (3.5-5.0); Alkaline Phosphatase 199 U/L (39-117); Anion Gap 11 (12-20); Aspartate Amino Transferase 116 U/L (5-37); Bilirubin Total 0.5 mg/dL (0.0-1.0); Blood Urea Nitrogen 14 mg/dL (9-16); Calcium 9.5 mg/dL (8.4-10.2); Carbon Dioxide 29 mmol/L (22-29); Chloride 103 mmol/L (96-108); Estimated Glomerular Filt Rate > 60; Glucose Random 153 mg/dL (60-115); Potassium 4.3 mmol/L (3.3-5.1); Sodium 139 mmol/L (135-145); Total Protein 7.3 g/dL (6.5-8.0)
[2022-01-14 07:49] LABS: HBS Num1 1.49 mIU/mL (0-7.99); HBc Num1 0.11 S/CO (0.00-0.79); HBsAGNum1 0.18 S/CO (0.00-0.99); Hepatitis A Antibody IgM 0.14 Index (0-0.79); Hepatitis B Core Antibody Nonreactive (Nonreactive); Hepatitis B Surface Antigen Negative (Negative); ~HepC Num1 0.14 S/CO (0.00-0.79); ~Hepatitis A Antibody IgM Nonreactive (Nonreactive); ~Hepatitis B Surface Antibody NONREACTIVE (Nonreactive); ~Hepatitis C Antibody Nonreactive (Nonreactive)
== END 2022-01-13 12:53 | disposition home or self-care (01) ==
LOC: HO.LAB 12:52
PROVIDERS: PCP Internal Medicine; Visit Provider Nurse Practitioner Family
DX: M05.9 Rheumatoid arthritis with rheumatoid factor, unspecified (principal); R79.89 Other specified abnormal findings of blood chemistry
CPT/HCPCS: 36415; 80053; 86704; 86706; 86709; 86803; 87340

== ENCOUNTER 2022-02-22 14:04 | Outpatient (REF) | payer OTHER, SELFPAY ==
[2022-02-22 15:36] LABS: Alanine Aminotransferase 262 U/L (0-40); Albumin Level 4.2 g/dL (3.5-5.0); Alkaline Phosphatase 321 U/L (39-117); Anion Gap 16 (12-20); Aspartate Amino Transferase 149 U/L (5-37); Bilirubin Direct 0.4 mg/dL (0.0-0.5); Bilirubin Total 0.8 mg/dL (0.0-1.0); Blood Urea Nitrogen 15 mg/dL (9-16); Calcium 9.3 mg/dL (8.4-10.2); Carbon Dioxide 26 mmol/L (22-29); Chloride 101 mmol/L (96-108); Cholesterol 253 mg/dL; Estimated Glomerular Filt Rate > 60; Glucose Random 143 mg/dL (60-115); HDL Cholesterol 40 mg/dL; LDL Cholesterol Calculated 151 mg/dl; Sodium 139 mmol/L (135-145); Total Protein 7.1 g/dL (6.5-8.0); Triglycerides 313 mg/dL
[2022-02-22 16:43] LABS: Ferritin 1991 ng/mL (20-250)
[2022-02-23 14:17] LABS: Alpha 1 Anti-trypsin 173 mg/dL (83-199); Ceruloplasmin 37 mg/dL (18-36)
[2022-02-23 14:21] LABS: Mitochondrial Antibodies NEGATIVE (NEGATIVE)
[2022-02-23 22:27] LABS: Anti Nuclear Antibody Screen NEGATIVE (NEGATIVE)
== END 2022-02-22 14:05 | disposition home or self-care (01) ==
LOC: HO.LAB 14:04
PROVIDERS: PCP Internal Medicine; Visit Provider Physician Assistant
DX: R10.11 Right upper quadrant pain (principal); D64.9 Anemia, unspecified; R74.01 Elevation of levels of liver transaminase levels; K76.0 Fatty (change of) liver, not elsewhere classified; R79.89 Other specified abnormal findings of blood chemistry
CPT/HCPCS: 36415; 80053; 80061; 80076; 82103; 82248; 82390; 82728; 86038; 86039; 86255; 86256

== ENCOUNTER → 2022-03-04 11:04 | Outpatient (REF) | payer OTHER, SELFPAY ==
--- NOTE | 2022-03-04 11:07 | CA_ITS ---
Acquisition Time: 2022-03-04 11:20:37 Total Exercise Time: 00:08:22 Test Indications: Abnormal Treadmill Test Medications: AMLODIPINE BACLOFEN GEMFIBROZIL Protocol: CIPRIANO Max HR: 181 BPM 111% of Pred: 163 BPM Max BP: 198/058 mmHG Max Work Load: 10.1 METS Exercise stress test with exercise 8 min 22 sec of Cipriano protocol, achieving 95% MPHR, with moderate sob, no chest discomfort, with isolated PACs and PVCs, one multfocal ventricular triplet in stage 3, with BP 146/94 at baseline and korey to 198/58 (1st BP in recovery), with EKG abnormality at baseline making EKGs nondiagnostic for ischemia, however with exercise there is upsloping ST segement. Echo images obtained at rest and immediately post peak exercise. Definity contrast used. Test reviewed with Dr Schaefer Referred By: Amanda Barajas Overread By: AMANDA BARAJAS
== END ==
LOC: HO.CARD 11:04
PROVIDERS: Visit Provider Nurse Practitioner Family
DX: Z01.818 Encounter for other preprocedural examination (principal)
CPT/HCPCS: 93350; Q9957

== ENCOUNTER 2022-03-09 10:03 | Day surgery (SDC) | payer OTHER, SELFPAY ==
[2022-03-02 14:34] VITALS: BMI 41.5
--- NOTE | 2022-03-08 09:50 | HO.ANESPROP2 ---
Documented by User: Sirena Bonner NP 03/08/22 09:53 HPI - Anesthesia Eval Consult details Narrative: 57yo M for Right Eye Muscle lateral and inferior rectus Recession/Resection Medically and Cardiac cleared [facility] Active Problems Active Problems: All Active Problems (Updated 03/03/22 @ 13:58 by Amanda Barajas, LIBRA-C) Preop cardiovascular exam (Acute) Sleep apnea treated with nocturnal BiPAP (Acute) High blood cholesterol (Acute) Arthritis (Acute) Hypertension (Acute) H/O eye surgery (Acute) Tendinopathy of right rotator cuff (Acute) snf methotrexate user (Acute) Low back pain (Acute) Chest pain (Acute) Abnormal EKG (Acute) Shoulder pain (Acute) Morbid obesity (Acute) Transaminitis (Acute) Preop exam for internal medicine (Acute) Morbid obesity (Acute) Seropositive rheumatoid arthritis (Acute) Encounter for general adult medical examination without abnormal findings (Acute) Past Medical History Medical History (Updated 03/03/22 @ 13:58 by Amanda Barajas, LIBRA-C) Elevated cholesterol Encounter for general adult medical examination without abnormal findings HTN (hypertension) Morbid obesity LOGAN (obstructive sleep apnea) Seropositive rheumatoid arthritis Family History Family History Brother No problems noted. Brother No problems noted. Sister No problems noted. Sister No problems noted. Surgical History Surgical History (Updated 03/02/22 @ 14:24 by Marilee Reed RN) H/O rectal polypectomy History of detached retina repair Hx of colonoscopy Hx of facial fracture repair Social History Social History (Updated 02/14/22 @ 10:52 by Veronika Kerns PA-C) Housing: House Alcohol intake: current Patient Tobacco Use Status: Never used Tobacco e-Cigarette/Vaping Use: Never Used Second Hand Smoke Exposure: No Use of substances other than those prescribed or required for medical reasons: No Are you DNR?: No Advance Directives: No Advance Directives Information Provided: Yes Recently lost weight without trying: No How much weight loss: 14-23 pounds Nutrition Risks: No Nutritional Risk service: No Current occupational status: employed Current occupation: Psychotherapist, [employer] Cognitive needs: No Hearing needs: No Vision needs: No Meds Allergies Allergy/AdvReac Type Severity Reaction Status Date / Time No Known Allergies Allergy Verified 03/02/22 14:26 [No Known Allergies*] Home Medications Medication Instructions Recorded Confirmed Last Taken Type tadalafil 20 mg tablet (Cialis) 20 mg PO DAILY PRN Sexual Activity 04/23/20 03/02/22 Unknown History Exam Exam Date and Time: March 08, 2022 0950 Height,Weight and Vital Signs: Height 5 ft 5 in Weight 113.398 kg Pertinent Lab Results Pertinent Lab Results: Laboratory Tests 01/12/22 02/22/22 13:13 14:25 WBC 8.2 Hgb 14.4 Hct 44.4 Plt Count 273 Sodium 139 Potassium 4.0 Chloride 101 Carbon Dioxide 26 BUN 15 Creatinine 0.80 Narrative Narrative: EKG 08/2021 Vent. Rate : 069 BPM ? ? Atrial Rate : 069 BPM ?? P-R Int : 172 ms? QRS Dur : 102 ms ? ? QT Int : 396 ms ? ? ? P-R-T Axes : 037 043 007 degrees ?? QTc Int : 424 ms ? Normal sinus rhythm Incomplete right bundle branch block Nonspecific T wave abnormality Abnormal ECG When compared with ECG of 12-MAR-2016 09:26, Nonspecific T wave abnormality now evident in Anterolateral leads ECHO 12/2021 Conclusions: - The left ventricular systolic function is normal.? The visually estimated ejection fraction is between 60-65%. ? - No obvious valvular pathology seen on this study.?? Stress ECHO 02/2022 Protocol: CIPRIANO ? Max HR: 181 BPM? 111% of? Pred: 163 BPM Max BP: 198/058 mmHG Max Work Load: 10.1 METS ? Exercise stress test with exercise 8 min 22 sec of Cipriano protocol, achieving 95% ?MPHR, with moderate sob, no chest discomfort, with isolated PACs and PVCs, one ?multfocal ventricular triplet in stage 3, with BP 146/94 at baseline and korey ?to 198/58 (1st BP in recovery), with EKG abnormality at baseline making EKGs ?nondiagnostic for ischemia, however with exercise there is upsloping ST ?segement. Echo images obtained at rest and immediately post peak exercise. ?Definity contrast used. Test reviewed with Dr Schaefer Exercise echocardiogram was reviewed. At rest, there is normal LVEF and wall motion. With peak exercise, there is no evidence? of exercise induced wall motion abnormality. Normal decrease in end-systolic volume. Overall, likely normal study.? Assessment and Plan Assessment Anesthesia Assessment: Chart Reviewed Documented by User: Judah Denney MD 03/09/22 13:24 [facility] Past Medical History Medical History (Updated 03/03/22 @ 13:58 by Amanda Barajas NP-C) Elevated cholesterol Encounter for general adult medical examination without abnormal findings HTN (hypertension) Morbid obesity LOGAN (obstructive sleep apnea) Seropositive rheumatoid arthritis Family History Family History Brother No problems noted. Brother No problems noted. Sister No problems noted. Sister No problems noted. Family history of problems with anesthesia: No Surgical History Surgical History (Updated 03/02/22 @ 14:24 by Marilee Reed RN) H/O rectal polypectomy History of detached retina repair Hx of colonoscopy Hx of facial fracture repair History of Problems with Anesthesia: No Social History Social History (Updated 02/14/22 @ 10:52 by Veronika Kerns PA-C) Housing: House Alcohol intake: current Patient Tobacco Use Status: Never used Tobacco e-Cigarette/Vaping Use: Never Used Second Hand Smoke Exposure: No Use of substances other than those prescribed or required for medical reasons: No Are you DNR?: No Advance Directives: No Advance Directives Information Provided: Yes Recently lost weight without trying: No How much weight loss: 14-23 pounds Nutrition Risks: No Nutritional Risk service: No Current occupational status: employed Current occupation: Psychotherapist, [employer] Cognitive needs: No Hearing needs: No Vision needs: No Meds Allergies Allergy/AdvReac Type Severity Reaction Status Date / Time No Known Allergies Allergy Verified 03/02/22 14:26 [No Known Allergies*] Home Medications Medication Instructions Recorded Confirmed Last Taken Type tadalafil 20 mg tablet (Cialis) 20 mg PO DAILY PRN Sexual Activity 04/23/20 03/02/22 Unknown History Exam Airway Mallampati Class: III TM Dist: >3cm Neck ROM: Full Assessment and Plan Assessment Anesthesia Assessment: Anesthesia Plan Discussed Final Anesthetic Review Family History of Problems with Anesthesia: No History of Problems with Anesthesia: No NPO: Yes ASA Class: III Final Preanesthetic Review: No Changes in Pt Med Stat, Meds/Allgs Chart Reviewed, Consent Obtained/Reviewed and Anes Risks/Benef Reviewed Patient Risk: Low Procedure Risk: Low Anesthetic Plan Anesthetic Plan: GA
[2022-03-09] VITALS (8 sets, daily range): BP systolic 142–158; BP diastolic 82–93; PULSE 57–70; RESP 12–16; TEMP 36.1–36.8; O2SAT 96–100; BMI 40.3
[2022-03-09] MEDS: Lactated Ringers 1,000 ML 100 ML IVCONT (11:53)
--- NOTE | 2022-03-09 14:47 | HO.OPHTHAL ---
Ophthalmology Operative Note Date of Service: 03/09/22 Narrative: Diagnosis 1. Exotropia 2. Right hypertropia procedures 1. Recession of right lateral rectus muscle from 13-15 mm behind the limbus. 2. Recession of right superior rectus muscle [address] Moreira. Anesthesia general. Complications none. The patient was brought to the operating room placed under general anesthesia. The patient's eyes were prepped and draped in the usual sterile ophthalmic fashion. A lid speculum was placed in the right eye and incisions made at bare sclera in the inferotemporal fornix. The lateral rectus muscle was hooked and found to be scarred together with the inferior oblique muscle and within insertion approximately 13 mm behind the surgical limbus. The inferior oblique was carefully dissected free from the lateral rectus muscle and the surrounding scar tissue and no fat was found to be prolapsed into the surgical field. The lateral rectus muscle was then hooked and dissected free of its overlying scar tissue. The muscle was then secured at its insertion with a double-arm Vicryl suture and disinserted from the globe. It was reattached to a position 15 mm behind the surgical limbus. Conjunctiva was closed with interrupted Vicryl sutures. An incision was it was then made down to bare sclera in the superior temporal fornix. The muscle was found to be surrounded with scar tissue which was then carefully dissected free. The superior oblique tendon was not involved in the scar. Muscle was then secured at its insertion with a double-arm Vicryl suture. It was disinserted from the globe and reattached to a position 2 mm behind its previous insertion. Conjunctiva was closed with interrupted Vicryl sutures. The patient was then awoken from general anesthesia and discharged to postoperative recovery in good condition.
[2022-03-09] MEDS: Acetaminophen 325 MG TABLET 650 MG PO (15:32)
[2022-03-09] MEDS: Tetracaine HCl/PF 0.5% Oph Sol 4 ML DROPS 1 DROP EYE-RIGHT (15:33)
== END 2022-03-09 16:10 | disposition home or self-care (01) ==
PROVIDERS: PCP Internal Medicine; Visit Provider Ophthalmology
PROC: (CPT 67311; principal; 2022-03-09 11:50)
DX: H53.2 Diplopia (principal); H50.21 Vertical strabismus, right eye; H50.10 Unspecified exotropia; I10 Essential (primary) hypertension; E78.5 Hyperlipidemia, unspecified; J45.909 Unspecified asthma, uncomplicated; M05.9 Rheumatoid arthritis with rheumatoid factor, unspecified; G47.33 Obstructive sleep apnea (adult) (pediatric); E66.01 Morbid (severe) obesity due to excess calories; Z68.41 Body mass index [BMI] 40.0-44.9, adult; Z79.899 Other long term (current) drug therapy
CPT/HCPCS: 67311; 67314; J1100; J1885; J2250; J2405

== ENCOUNTER 2022-04-22 08:57 | Outpatient (REF) | payer OTHER, SELFPAY ==
--- NOTE | ~2022-04-22 | US_ITS ---
EXAMINATION: US ABDOMEN, LIMITED CLINICAL INFORMATION: Elevated liver transaminase levels. COMPARISON: None. TECHNIQUE: Real-time imaging of the abdominal viscera. FINDINGS: PANCREAS: Limited. The visualized pancreatic head and body are normal in appearance. The remainder of the pancreas is obscured from visualization by the overlying bowel gas. LIVER: The liver demonstrates normal size, contour and generally increased echogenicity, with pericholecystic sparing. No focal lesion or intrahepatic biliary duct dilatation. The right lobe measures 17.5 cm in length. The left lobe measures 9.5 cm in length. Portal flow is towards the liver (hepatopetal). GALLBLADDER: The gallbladder is physiologically distended. There are layering gallstones and biliary sludge. There is no gallbladder wall thickening or pericholecystic fluid. COMMON BILE DUCT: Normal in caliber measuring 0.3 cm in diameter. RIGHT KIDNEY: At the upper pole, a 4.7 x 4.2 x 3.6 cm anechoic, simple cyst is seen. No hydronephrosis. No renal calculi or focal parenchymal lesions. The kidney measures 11.6 cm in maximum dimension. FREE FLUID: None. US/US abdomen barillas w elastography IMPRESSION: 1. There is generalized increase in hepatic echotexture, consistent with fatty infiltration or hepatocellular disease. Please correlate clinically. Characteristic pericholecystic sparing favors fatty infiltration. No focal hepatic mass or intrahepatic biliary dilatation is seen. 2. There is cholelithiasis, without cholecystitis or choledocholithiasis. 3. A benign, simple right renal cyst is incidentally noted. No imaging follow-up is recommended for this finding.
== END 2022-04-22 08:58 | disposition home or self-care (01) ==
LOC: HO.US 08:57
PROVIDERS: Visit Provider Physician Assistant
DX: E66.01 Morbid (severe) obesity due to excess calories (principal); R74.01 Elevation of levels of liver transaminase levels
CPT/HCPCS: 76705; 76981

== ENCOUNTER 2022-04-27 09:36 | Outpatient (REF) | payer OTHER, SELFPAY ==
--- NOTE | ~2022-04-27 | US_ITS ---
EXAMINATION: US ABDOMEN, LIMITED CLINICAL INFORMATION: Elevated liver transaminase levels. COMPARISON: None. TECHNIQUE: Real-time imaging of the abdominal viscera. FINDINGS: PANCREAS: Limited. The visualized pancreatic head and body are normal in appearance. The remainder of the pancreas is obscured from visualization by the overlying bowel gas. LIVER: The liver demonstrates normal size, contour and generally increased echogenicity, with pericholecystic sparing. No focal lesion or intrahepatic biliary duct dilatation. The right lobe measures 17.5 cm in length. The left lobe measures 9.5 cm in length. Portal flow is towards the liver (hepatopetal). GALLBLADDER: The gallbladder is physiologically distended. There are layering gallstones and biliary sludge. There is no gallbladder wall thickening or pericholecystic fluid. COMMON BILE DUCT: Normal in caliber measuring 0.3 cm in diameter. RIGHT KIDNEY: At the upper pole, a 4.7 x 4.2 x 3.6 cm anechoic, simple cyst is seen. No hydronephrosis. No renal calculi or focal parenchymal lesions. The kidney measures 11.6 cm in maximum dimension. FREE FLUID: None. US/US SMA IMPRESSION: 1. There is generalized increase in hepatic echotexture, consistent with fatty infiltration or hepatocellular disease. Please correlate clinically. Characteristic pericholecystic sparing favors fatty infiltration. No focal hepatic mass or intrahepatic biliary dilatation is seen. 2. There is cholelithiasis, without cholecystitis or choledocholithiasis. 3. A benign, simple right renal cyst is incidentally noted. No imaging follow-up is recommended for this finding.
== END 2022-04-27 09:37 | disposition home or self-care (01) ==
LOC: HO.US 09:36
PROVIDERS: Visit Provider Physician Assistant
DX: R10.9 Unspecified abdominal pain (principal)
CPT/HCPCS: 93976

== ENCOUNTER 2022-05-05 15:27 | Outpatient (REF) | payer OTHER, SELFPAY ==
[2022-05-05 17:54] LABS: Iron 74 mcg/dL (45-160); Percent Iron Saturation 21 % (15-50); Total Iron Binding Capacity 358 mcg/dL (228-428); Unsaturated Iron Binding 284 ug/dL
[2022-05-09 14:32] LABS: Alpha 1 Anti-trypsin 145 mg/dL (83-199)
[2022-05-09 14:51] LABS: Myeloperoxidase Antibody <1.0 AI; Proteinase 3 PR3 Antibodies <1.0 AI
[2022-05-09 16:36] LABS: IgA 227 mg/dL (47-310); IgG 965 mg/dL (600-1640); IgM 95 mg/dL (50-300)
[2022-05-10 13:22] LABS: Soluble Liver Ag Autoantibody <20.1 U (0.0-20.0)
[2022-05-10 22:36] LABS: Smooth Muscle Antibody <20 U (<20)
[2022-05-11 05:32] LABS: Aldolase 8.2 U/L (<=8.1); Angiotensin Converting Enzyme 37 U/L (9-67)
[2022-05-11 13:26] LABS: CK-BB None Detected (None Detected); CK-MB 0 % (<5); CK-MM 100 % (95-100); Creatine Kinase,Total,Serum 61 U/L (44-196)
== END 2022-05-05 15:28 | disposition home or self-care (01) ==
LOC: HO.LAB 15:27
PROVIDERS: Visit Provider Physician Assistant
DX: R74.01 Elevation of levels of liver transaminase levels (principal); R79.89 Other specified abnormal findings of blood chemistry; R10.9 Unspecified abdominal pain; R19.8 Other specified symptoms and signs involving the digestive system and abdomen; K52.9 Noninfective gastroenteritis and colitis, unspecified; R74.8 Abnormal levels of other serum enzymes
CPT/HCPCS: 36415; 81256; 82085; 82103; 82164; 82552; 82784; 83520; 83540; 86015; 86021

== ENCOUNTER 2022-05-09 08:18 | Outpatient (REF) | payer OTHER, SELFPAY ==
--- NOTE | ~2022-05-09 | CT_ITS ---
EXAMINATION: CT ABDOMEN AND PELVIS WITH CONTRAST CLINICAL INFORMATION: Abdominal pain. COMPARISON: Ultrasound abdomen 04/27/2022. TECHNIQUE: Multidetector volumetric images were obtained from the superior aspect of the liver through the pubic symphysis following administration 85 mL of Omnipaque 350 intravenous contrast. Sagittal and coronal reformatted images were obtained on the technologist's workstation. Oral contrast: No This CT examination was performed using dose optimization techniques as appropriate, variously including the following: *Automated exposure control *Adjustment of mA and/or kV according to patient size (this includes techniques or standardized protocols for targeted exams where dose is matched to indication/reason for exam; i.e. extremities or head) *Use of iterative reconstruction technique DLP: 775 mGy-cm. FINDINGS: LUNG BASES: The lung bases are clear. The heart size is normal. LIVER, GALLBLADDER, AND BILIARY TREE: The liver is normal size, contour and diffusely attenuated with sparing of the posterior segment right hepatic lobe lobe. No focal lesion or intrahepatic ductal dilatation seen. There is a solitary rim calcified gallstone measuring 2.6 cm. No wall thickening or pericholecystic fluid collection seen. PANCREAS: Unremarkable. SPLEEN: Unremarkable. ADRENAL GLANDS: Unremarkable. KIDNEYS AND URETERS: The kidneys are normal in size, shape, and attenuation. No hydronephrosis, hydroureter, or calculi seen. No perinephric stranding. There is a 4.7 x 4.0 cm cyst upper pole right kidney. No additional lesions seen. BLADDER: Unremarkable. GASTROINTESTINAL TRACT: There is scattered stool and gas seen throughout the colon without distention. The small bowel loops are normal caliber. Appendix is normal caliber. No inflammatory process, or obstruction seen. ABDOMINAL WALL: No significant hernia is appreciated. LYMPH NODES: Normal. VASCULAR: Unremarkable. PELVIC VISCERA: Unremarkable. OSSEOUS STRUCTURES: No aggressive lytic or sclerotic process seen. Mild ventral spondylosis at L1-L2, L3-L4 disc levels are noted. CT/CT abdomen pelvis w IV con IMPRESSION: Cholelithiasis without wall thickening. Hepatic steatosis. The right hepatic lobe. No focal lesion seen. Upper pole right renal cysts. No radiopaque renal calculi or hydronephrosis. Findings are stable to previous ultrasound exam 04/26/2022. Fleischner guidelines were followed.
[2022-05-09] MEDS: iohexoL 350 MG/ML 100 ML INFUS..BTL IV (09:22)
== END 2022-05-09 08:19 | disposition home or self-care (01) ==
LOC: HO.CT 08:18
PROVIDERS: Visit Provider Physician Assistant
DX: R10.9 Unspecified abdominal pain (principal)
CPT/HCPCS: 74177; Q9967

== ENCOUNTER 2022-05-30 12:56 | Outpatient (REF) | payer OTHER, SELFPAY ==
[2022-05-30 13:58] LABS: Alanine Aminotransferase 119 U/L (0-40); Albumin Level 4.4 g/dL (3.5-5.0); Alkaline Phosphatase 192 U/L (39-117); Anion Gap 16 (12-20); Aspartate Amino Transferase 82 U/L (5-37); Bilirubin Total 0.5 mg/dL (0.0-1.0); Blood Urea Nitrogen 19 mg/dL (9-16); Calcium 9.4 mg/dL (8.4-10.2); Carbon Dioxide 26 mmol/L (22-29); Chloride 103 mmol/L (96-108); Estimated Glomerular Filt Rate > 60; Glucose Random 114 mg/dL (60-115); Potassium 4.2 mmol/L (3.3-5.1); Sodium 141 mmol/L (135-145); Total Protein 7.5 g/dL (6.5-8.0)
[2022-05-30 14:17] LABS: Thyroid Stimulating Hormone 1.62 uIU/mL (0.32-4.0)
== END 2022-05-30 12:57 | disposition home or self-care (01) ==
LOC: HO.LAB 12:56
PROVIDERS: PCP Internal Medicine; Visit Provider Physician Assistant
DX: R74.01 Elevation of levels of liver transaminase levels (principal); R79.89 Other specified abnormal findings of blood chemistry
CPT/HCPCS: 36415; 80053; 84443

== ENCOUNTER 2022-09-02 06:25 | Day surgery (SDC) | payer OTHER, SELFPAY ==
[2022-09-02] VITALS (7 sets, daily range): BP systolic 121–154; BP diastolic 62–87; PULSE 54–76; RESP 18–20; TEMP 36.6–37.2; O2SAT 93–96; BMI 43.2
--- NOTE | ~2022-09-02 | US_ITS ---
EXAMINATION: US ULTRASOUND-GUIDED LIVER BIOPSY CLINICAL INFORMATION: Elevated liver transaminase. COMPARISON: None. TECHNIQUE: Following explaining ultrasound-guided right hepatic lobe biopsy procedure, benefits and risks, a written consent was obtained. Patient was placed supine and preliminary ultrasound imaging was obtained to the left and right hepatic lobes. An optimal site was selected along the right axillary line in the intercostal space and the space was marked on the skin with a marker. Preliminary ultrasound images were documented. The marked site was cleaned and draped with 2% chlorhexidine solution. 1% lidocaine was injected at the puncture site. Through a small skin incision, under sterileultrasound guidance, an 18-gauge guide needle was advanced into the right hepatic lobe. Coaxially a biopsy gun was advanced and a 3-pass core biopsy of the right hepatic lobe was obtained. Postbiopsy there was very little hemorrhage noted. Stylet was reintroduced and needle withdrawn. Patient tolerated the procedure extremely well. Repeat imaging revealed no hemorrhage or abnormal echotexture. A simple Band-Aid was applied postprocedure. Patient tolerated procedure extremely well. FINDINGS: On preliminary ultrasound imaging, there was echogenic liver without any focal lesion seen. A 3-pass core biopsy of the right hepatic lobe was performed. US/US biopsy liver IMPRESSION: Successful ultrasound-guided core biopsy of right hepatic lobe.
--- NOTE | 2022-09-02 06:40 | PC.NURSE ---
no meds taken today
[2022-09-02 06:58] LABS: MANUAL DIFF FLAG NO
[2022-09-02 07:03] LABS: Basophils Absolute Auto 0.1 X10*3/uL (0.0-0.2); Basophils Percent Auto 0.7 % (0-2); Eosinophils Absolute Auto 0.2 X10*3/uL (0.0-0.4); Eosinophils Percent Auto 2.1 % (0-4); Hematocrit 42.1 % (42.0-52.0); Hemoglobin 14.7 g/dl (14.0-18.0); Imm Gran Abs Auto 0.06 X10*3/uL (0.00-0.03); Imm Gran Pct Auto 0.6 % (0.0-0.4); Lymphocytes Absolute Auto 2.6 X10*3/uL (1.2-4.9); Lymphocytes Percent Auto 23.8 % (20-40); Mean Corpuscular HGB Conc 34.9 g/dl (31.0-36.0); Mean Corpuscular Hemoglobin 30.2 pg (27.0-33.0); Mean Corpuscular Volume 86.6 fL (80.0-98.0); Mean Platelet Volume 11.9 fL (9.4-12.4); Monocytes Absolute Auto 0.9 X10*3/uL (0.1-1.2); Monocytes Percent Auto 8.7 % (2-11); Neutrophils Absolute Auto 6.9 x10*3/uL (2.0-8.3); Neutrophils Percent Auto 64.1 % (45-73); Platelet Count 259 X10*3/uL (160-400); Red Blood Count 4.86 X10*6/uL (4.60-5.80); Red Cell Distribution Width 12.9 % (11.0-16.0); White Blood Count 10.7 X10*3/uL (4.8-10.8)
[2022-09-02 07:20] LABS: Prothrombin Time 11.9 SEC (10.0-13.1)
[2022-09-02 07:24] LABS: Partial Thromboplastin Time 37.1 SEC (26.0-36.4)
[2022-09-02] MEDS: Lidocaine HCl 1 % MPF 5 ML VIAL SUBCUT (09:10)
== END 2022-09-02 11:01 | disposition home or self-care (01) ==
PROVIDERS: PCP Internal Medicine; Visit Provider Radiology Diagnostic Radiology
DX: R74.01 Elevation of levels of liver transaminase levels (principal); R79.89 Other specified abnormal findings of blood chemistry; M05.9 Rheumatoid arthritis with rheumatoid factor, unspecified; R10.9 Unspecified abdominal pain; R19.7 Diarrhea, unspecified; I10 Essential (primary) hypertension; E78.00 Pure hypercholesterolemia, unspecified; G47.33 Obstructive sleep apnea (adult) (pediatric); E66.01 Morbid (severe) obesity due to excess calories; Z68.41 Body mass index [BMI] 40.0-44.9, adult; Z79.899 Other long term (current) drug therapy
CPT/HCPCS: 36415; 47000; 76942; 85025; 85610; 85730; 88307; 88313; 99152; J2250; J3010

== ENCOUNTER → 2022-09-15 14:54 | Outpatient (BNVA) | payer OTHER, SELFPAY | PROVIDERS: PCP Internal Medicine; Visit Provider Nurse Practitioner Family | DX: Z13.89 Encounter for screening for other disorder (principal) ==

== ENCOUNTER 2022-12-13 09:27 | Outpatient (REF) | payer OTHER, SELFPAY ==
[2022-12-13 10:53] LABS: C Reactive Protein 0.38 mg/dL (< or = 0.50)
[2022-12-13 11:20] LABS: Erythrocyte Sedimentation Rate 19 MM/HR (0-15)
[2022-12-13 13:26] LABS: MANUAL DIFF FLAG NO
[2022-12-13 13:33] LABS: Anion Gap 12 (12-20)
[2022-12-13 13:37] LABS: Alanine Aminotransferase 33 U/L (0-40); Albumin Level 4.2 g/dL (3.5-5.0); Alkaline Phosphatase 81 U/L (39-117); Aspartate Amino Transferase 19 U/L (5-37); Bilirubin Total 0.7 mg/dL (0.0-1.0); Blood Urea Nitrogen 18 mg/dL (9-16); Calcium 9.2 mg/dL (8.4-10.2); Carbon Dioxide 25 mmol/L (22-29); Chloride 107 mmol/L (96-108); Estimated Glomerular Filt Rate > 60; Glucose Random 164 mg/dL (60-115); Potassium 4.2 mmol/L (3.3-5.1); Sodium 140 mmol/L (135-145); Total Protein 6.9 g/dL (6.5-8.0)
[2022-12-13 13:58] LABS: Basophils Absolute Auto 0.1 X10*3/uL (0.0-0.2); Basophils Percent Auto 0.8 % (0-2); Eosinophils Absolute Auto 0.1 X10*3/uL (0.0-0.4); Eosinophils Percent Auto 1.8 % (0-4); Hematocrit 42.1 % (42.0-52.0); Hemoglobin 14.5 g/dl (14.0-18.0); Imm Gran Abs Auto 0.03 X10*3/uL (0.00-0.03); Imm Gran Pct Auto 0.4 % (0.0-0.4); Lymphocytes Absolute Auto 2.1 X10*3/uL (1.2-4.9); Lymphocytes Percent Auto 26.7 % (20-40); Mean Corpuscular HGB Conc 34.4 g/dl (31.0-36.0); Mean Corpuscular Hemoglobin 29.8 pg (27.0-33.0); Mean Corpuscular Volume 86.4 fL (80.0-98.0); Mean Platelet Volume 12.4 fL (9.4-12.4); Monocytes Absolute Auto 0.7 X10*3/uL (0.1-1.2); Monocytes Percent Auto 8.5 % (2-11); Neutrophils Absolute Auto 4.8 x10*3/uL (2.0-8.3); Neutrophils Percent Auto 61.8 % (45-73); Platelet Count 263 X10*3/uL (160-400); Red Blood Count 4.87 X10*6/uL (4.60-5.80); Red Cell Distribution Width 12.7 % (11.0-16.0); White Blood Count 7.7 X10*3/uL (4.8-10.8)
== END 2022-12-13 09:28 | disposition home or self-care (01) ==
LOC: HO.LAB 09:27
PROVIDERS: PCP Internal Medicine; Visit Provider Nurse Practitioner Family
DX: M05.9 Rheumatoid arthritis with rheumatoid factor, unspecified (principal)
CPT/HCPCS: 36415; 80053; 85025; 85652; 86140

== ENCOUNTER → 2022-12-20 07:32 | Outpatient (BNVA) | payer OTHER, SELFPAY | PROVIDERS: PCP Internal Medicine; Visit Provider Nurse Practitioner Family ==

== ENCOUNTER → 2023-01-16 08:22 | Outpatient (BNVA) | payer OTHER, SELFPAY | PROVIDERS: PCP Internal Medicine; Referring Provider Internal Medicine; Visit Provider Internal Medicine Cardiovascular Disease | DX: I10 Essential (primary) hypertension (principal) | CPT/HCPCS: 93005 ==

== ENCOUNTER 2023-04-26 15:42 | Outpatient (REF) | payer OTHER, SELFPAY ==
[2023-04-26 15:51] LABS: MANUAL DIFF FLAG NO
[2023-04-26 16:17] LABS: Basophils Absolute Auto 0.1 X10*3/uL (0.0-0.2); Basophils Percent Auto 0.7 % (0-2); Eosinophils Absolute Auto 0.2 X10*3/uL (0.0-0.4); Eosinophils Percent Auto 1.8 % (0-4); Hematocrit 42.1 % (42.0-52.0); Hemoglobin 14.7 g/dl (14.0-18.0); Imm Gran Abs Auto 0.13 X10*3/uL (0.00-0.03); Imm Gran Pct Auto 1.2 % (0.0-0.4); Lymphocytes Absolute Auto 2.1 X10*3/uL (1.2-4.9); Lymphocytes Percent Auto 19.2 % (20-40); Mean Corpuscular HGB Conc 34.9 g/dl (31.0-36.0); Mean Corpuscular Hemoglobin 30.6 pg (27.0-33.0); Mean Corpuscular Volume 87.7 fL (80.0-98.0); Mean Platelet Volume 12.1 fL (9.4-12.4); Monocytes Absolute Auto 0.9 X10*3/uL (0.1-1.2); Monocytes Percent Auto 7.8 % (2-11); Neutrophils Absolute Auto 7.6 x10*3/uL (2.0-8.3); Neutrophils Percent Auto 69.3 % (45-73); Platelet Count 253 X10*3/uL (160-400); Red Cell Distribution Width 12.6 % (11.0-16.0)
[2023-04-26 16:48] LABS: Alanine Aminotransferase 48 U/L (0-40); Albumin Level 4.2 g/dL (3.5-5.0); Alkaline Phosphatase 110 U/L (39-117); Anion Gap 13 (12-20); Aspartate Amino Transferase 29 U/L (5-37); Bilirubin Total 0.3 mg/dL (0.0-1.0); Blood Urea Nitrogen 15 mg/dL (9-16); C Reactive Protein 0.67 mg/dL (< or = 0.50); Calcium 9.2 mg/dL (8.4-10.2); Carbon Dioxide 24 mmol/L (22-29); Chloride 107 mmol/L (96-108); Estimated Glomerular Filt Rate > 60; Glucose Random 152 mg/dL (60-115); Potassium 3.8 mmol/L (3.3-5.1); Sodium 140 mmol/L (135-145); Total Protein 7.6 g/dL (6.5-8.0)
[2023-04-26 17:00] LABS: Erythrocyte Sedimentation Rate 30 MM/HR (0-15)
== END 2023-04-26 15:43 | disposition home or self-care (01) ==
LOC: HO.LAB 15:42
PROVIDERS: PCP Internal Medicine; Visit Provider Nurse Practitioner Family
DX: M05.9 Rheumatoid arthritis with rheumatoid factor, unspecified (principal)
CPT/HCPCS: 36415; 80053; 85025; 85652; 86140

== ENCOUNTER 2023-04-27 09:40 | Outpatient (AMB) | payer OTHER, SELFPAY ==
--- NOTE | 2023-04-27 09:43 | MHC.OFFVIS ---
Intake Vital Signs 04/27/23 09:44 Height 5 ft 5 in Weight 265 lb 10.512 oz BMI 44.2 BP 128/82 Blood Pressure Location Rt brachial Position Sitting Pulse 70 Pulse Source Pulse Oximeter Pulse Oximetry (%) 96 Intake Visit Reasons: rheumatoid arthritis Intake Note: Pt seen today for RA follow up. He states his meds were stopped due to elevated lft's; reports moderate increase in joint pain since. Ortho Rn Required: No Accompanied by: Self / Same As Patient Allergies No Known Allergies [No Known Allergies*] Allergy (Verified 04/27/23 09:45) Medication List - Last Reconciled 04/27/23 by Aurora Montanez MD albuterol sulfate 90 mcg/actuation 2 puffs inhalation QID PRN amlodipine 10 mg PO DAILY 90 days baclofen 10 mg PO BEDTIME PRN gemfibrozil 600 mg PO BID tadalafil (Cialis) 20 mg PO DAILY PRN HPI HPI Comments History of Present Illness Details This is a 58-year-old male with seropositive RA who returns for follow-up. Was last evaluated by Sherrill Barnes 11/2022. Leflunomide was discontinued about a year and half ago due to elevated LFTs, liver biopsy showed fatty liver per patient. Patient stated that she he has been having some moderate increase in his overall joint pain especially in his hands, ankles, feet since medication was discontinued. Feels some fatigue. Also has left lower back pain pain he has morning stiffness of his hands lasting 5-10 minutes. Improved with moving around. Improved with hot water. [facility] Medical History Transaminitis Elevated cholesterol HTN (hypertension) LOGAN (obstructive sleep apnea) Morbid obesity Seropositive rheumatoid arthritis Encounter for general adult medical examination without abnormal findings Surgical History Hx of facial fracture repair History of detached retina repair Hx of colonoscopy H/O rectal polypectomy Family History Brother No problems noted. Brother No problems noted. Sister No problems noted. Sister No problems noted. Social History Housing: House Alcohol intake: current Patient Tobacco Use Status: Never used Tobacco e-Cigarette/Vaping Use: Never Used Second Hand Smoke Exposure: No service: No Current occupational status: employed Current occupation: Psychotherapist, [employer] Cognitive needs: No Hearing needs: No Vision needs: No Review of Systems Const Reports fatigue and Reports weight gain Musc Reports arthralgias, Denies joint swelling and Reports stiffness Endo Reports fatigue Physical Exam Vital Signs: Last Vital Signs Pulse 70 04/27/23 09:44 BP 128/82 04/27/23 09:44 Pulse Ox 96 04/27/23 09:44 BMI result Body Mass Index 44.2 Const General: cooperative, healthy appearing and comfortable Nutritional Appearance: obese morbidly obese Orientation/consciousness: patient oriented x3 Limitations: no limitations HEENT Head: Yes normocephalic and Yes atraumatic Mouth: moist mucous membranes Resp Effort & Inspection: normal respiratory effort and able to speak in complete sentences Auscultation: clear to auscultation bilaterally Cardio Rate: regular rate Rhythm: regular rhythm GI Inspection: No distended Palpation (GI): Soft to palpation and nontender Skin General skin exam: no rashes or lesions noted Neuro General: patient oriented x3 Extrem Other: Left 4th MCP tenderness No swollen joints Negative MCP squeeze test bilaterally Positive empty can test on the right No elbow pain with full flexion and extension bilaterally , negative resisted wrist extension test Negative MTP squeeze test bilaterally Assessment & Plan Assessment & Plan (1) Seropositive rheumatoid arthritis: Comment: +RF -ve CCP dx 2012 MRX 2011 but did not have a response so medication was discontinued and patient was advised to follow-up if his symptoms worsened.? Then on methotrexate 6 tabs weekly from August 2019 to November 2020. Stopped due to systemic fatigue and brain fog and switched to leflunomide 12/10/2020. Tolerated Leflunomide with improved brain fog, Leflunomide stopped 12/16/2021 due to elevated LFTs. Code(s): M05.9 - Rheumatoid arthritis with rheumatoid factor, unspecified Plan: This is a 58-year-old male with seropositive RA who returns for follow-up. Patient has been off DMARD since leflunomide was discontinued 11/2021 due to transaminitis. Since leflunomide was discontinued patient has been having mildly worsening joint pain. He has 1 tender joint on exam. Inflammatory markers are mildly elevated. Will check bilateral hand, wrist, ankles and feet x-rays to evaluate for erosive disease. Will Discuss the need for DMARDs next visit. Plan I spent minutes reviewing patient's chart, evaluating patient, ordering diagnostic workup, counseling patient and documenting in the chart Orders: Orders XR ankle RT min 3V Today M05.9 - Rheumatoid arthritis with rheumatoid factor, unspecified XR foot LT min 3V Today M05.9 - Rheumatoid arthritis with rheumatoid factor, unspecified XR hand wrist LT Today M05.9 - Rheumatoid arthritis with rheumatoid factor, unspecified XR hand wrist RT Today M05.9 - Rheumatoid arthritis with rheumatoid factor, unspecified XR ankle LT min 3V Today M05.9 - Rheumatoid arthritis with rheumatoid factor, unspecified XR foot RT min 3V Today M05.9 - Rheumatoid arthritis with rheumatoid factor, unspecified Coding Level of Care Code Est Pt Level 4 (76686) Diagnoses Seropositive rheumatoid arthritis M05.9
[2023-04-27 09:44] VITALS: BP 128/82; PULSE 70; O2SAT 96; BMI 44.2
== END 2023-04-27 10:10 | disposition home or self-care (01) ==
PROVIDERS: PCP Internal Medicine; Visit Provider Student in an Organized Health Care Education/Training Program
DX: M05.79 Rheumatoid arthritis with rheumatoid factor of multiple sites without organ or systems involvement (principal)
CPT/HCPCS: 99214

== ENCOUNTER → 2023-04-27 09:40 | Outpatient (BNVA) | payer OTHER, SELFPAY | PROVIDERS: PCP Internal Medicine; Visit Provider Student in an Organized Health Care Education/Training Program ==

== ENCOUNTER 2023-05-23 09:47 | Outpatient (AMB) | payer OTHER, SELFPAY ==
[2023-05-23 09:47] VITALS: BP 142/84; PULSE 67; O2SAT 98; BMI 44.4
--- NOTE | 2023-05-23 09:47 | MHC.PC.OV ---
Vital Signs 05/23/23 09:47 Height 5 ft 5 in Weight 267 lb BMI 44.4 BP 142/84 H Blood Pressure Location Lt brachial Position Sitting Pulse 67 Pulse Source Pulse Oximeter Pulse Oximetry (%) 98 Oxygen Delivery Method Room Air Intake Visit Reasons: discuss getting sleep apnea test Allergies No Known Allergies [No Known Allergies*] Allergy (Verified 05/23/23 09:48) Medication List - Last Reconciled 05/23/23 by Eduardo Mcclian MD albuterol sulfate 90 mcg/actuation 2 puffs inhalation QID PRN amlodipine 10 mg PO DAILY 90 days baclofen 10 mg PO BEDTIME PRN gemfibrozil 600 mg PO BID tadalafil (Cialis) 20 mg PO DAILY PRN Tobacco use date assessed: 05/23/23 Dental Screening Dental Screen Date: 05/23/23 Did you have a dental visit in the last 12 months?: No Did you have a dental problem in the last 6 months where you did not have access to dental care?: No Was dental information given to patient?: Patient has dentist HPI discuss getting sleep apnea test HPI Details has LOGAN and cpap machine is broken; needs a new sleep study [facility] Medical History Transaminitis Elevated cholesterol HTN (hypertension) LOGAN (obstructive sleep apnea) Morbid obesity Seropositive rheumatoid arthritis Encounter for general adult medical examination without abnormal findings Surgical History Hx of facial fracture repair History of detached retina repair Hx of colonoscopy H/O rectal polypectomy Family History Brother No problems noted. Brother No problems noted. Sister No problems noted. Sister No problems noted. Social History Housing: House Alcohol intake: current Patient Tobacco Use Status: Never used Tobacco e-Cigarette/Vaping Use: Never Used Second Hand Smoke Exposure: No service: No Current occupational status: employed Current occupation: Psychotherapist, [employer] Cognitive needs: No Hearing needs: No Vision needs: Yes Questionnaire PHQ-9 Over the last 2 weeks, how often have you been bothered by any of the following problems? 1. Little interest or pleasure in doing things: not at all 2. Feeling down, depressed, or hopeless: not at all 3. Trouble falling or staying asleep, or sleeping too much: not at all 4. Feeling tired or having little energy: not at all 5. Poor appetite or overeating: not at all 6. Feeling bad about yourself - or that you are a failure or have let yourself or your family down: not at all 7. Trouble concentrating on things, such as reading the newspaper or watching television: not at all 8. Moving or speaking so slowly that other people could have noticed. Or the opposite - being so fidgety or restless that you have been moving around a lot more than usual: not at all 9. Thoughts that you would be better off or of hurting yourself in some way: not at all Total score: 0 Depression Screening Interpretation: Negative Depression Screening Done: Yes Source: Developed by Drs. Benoit Barroso, Clarita Edmonds, Jt Melendez and colleagues, with an educational mary jane from [employer]. Thrive Questionnaire Date Thrive assessed: 05/23/23 I am a: Patient What is your living situation today?: I have a steady place to live Within the past 12 months, did the food you bought not last and you didn't have the money to get more?: Never true Within the past 12 months, did you worry whether your food would run out before you got money to buy more?: Never true Do you have trouble paying for medicines?: No Do you have trouble getting transportation to medical appointments?: No Do you have trouble paying your heating and electricity bill?: No Do you have trouble taking care of your child, family member or friend?: No Do you have trouble with day-to-day activities such as bathing, preparing meals, shopping, managing finances, etc.?: No Are you currently unemployed and looking for a job?: No Are you interested in more education?: No Please select the resources that you would like help with: None AUDIT C Alcohol Use Questionnaire (AUDIT-C) 1. How often do you have a drink containing alcohol?: Never Total Score: 0 Score Reviewed/Action Taken: Yes CHRISTY-7 AMB Questionnaire CHRISTY-7 Date CHRISTY - 7 assessed: 05/23/23 Feeling nervous, anxious, or on edge: 0 = Not at all Not being able to stop or control worryin = Not at all Worrying too much about different things: 0 = Not at all Trouble relaxin = Not at all Being so restless that it is hard to sit still: 0 = Not at all Becoming easily annoyed or irritable: 0 = Not at all Feeling afraid as if something awful might happen: 0 = Not at all Total CHRISTY-7 score (0-4 normal; 5-9 mild; 10-14 moderate; 15-21 severe): 0 Source: Developed by Drs. Benoit Barroso, Clarita Edmonds, Jt Melendez and colleagues, with an educational mary jane from [employer]. Review of Systems Const Denies chills, Denies headache(s) and Denies weight loss ENT Denies headache(s) Card Denies chest pain, Denies syncope, Denies irregular heart rhythm and Denies dyspnea Resp Denies chest congestion, Denies cough and Denies dyspnea GI Denies abdominal pain, Denies change in stool character, Denies nausea and Denies vomiting Musc Denies deformity and Denies joint swelling Neuro Denies syncope and Denies headache(s) Physical exam (Primary Care) Vital Signs: Last Vital Signs Pulse 67 05/23/23 09:47 BP 142/84 H 05/23/23 09:47 Pulse Ox 98 05/23/23 09:47 Oxygen Delivery Method Room Air 05/23/23 09:47 BMI result Body Mass Index 44.4 Tobacco/Smoking Status: Tobacco use Status Tobacco use date assessed 05/23/23 05/23/23 09:53 Patient Tobacco Use Status Never used Tobacco 05/23/23 09:53 e-Cigarette/Vaping Use Never Used 05/23/23 09:53 PHQ-9: PHQ-9 Score PHQ-9: Total score 0 05/23/23 09:53 Depression Screening Interpretation: Negative Thrive Assessment: Date of Thrive Assessment Date Thrive assessed 05/23/23 05/23/23 09:53 Const General: cooperative, comfortable, no acute distress and alert Neck Neck: Yes no lymphadenopathy Thyroid: Thyroid normal Resp Effort & Inspection: normal respiratory effort Auscultation: clear to auscultation bilaterally Percussion: percussion normal Cardio Jugular venous distension: no JVD Palpation: normal PMI Rate: regular rate Rhythm: regular rhythm Heart sounds: S1 normal heart sound present and S2 normal heart sound present GI Inspection: Yes normal to inspection Palpation (GI): No hepatosplenomegaly present Skin General skin exam: no rashes or lesions noted Extrem General: Yes no clubbing, cyanosis or edema Assessment and Plan Assessment & Plan (1) LOGAN on CPAP: Code(s): G47.33 - Obstructive sleep apnea (adult) (pediatric) Plan: new study ordered Orders: Orders RT home sleep study Today G47.33 - Obstructive sleep apnea (adult) (pediatric) XR shoulder RT min 2V Today M25.519 - Pain in unspecified shoulder Coding Level of Care Code Est Pt Level 3 (47809) Diagnoses LOGAN on CPAP G47.33 Additional Codes PHQ-9 - 91465 - PHQ-9 Billing: ([id number])
== END 2023-05-23 10:03 | disposition home or self-care (01) ==
PROVIDERS: PCP Internal Medicine; Visit Provider Internal Medicine
DX: G47.33 Obstructive sleep apnea (adult) (pediatric) (principal)
CPT/HCPCS: 99213

== ENCOUNTER 2023-06-20 13:44 | Outpatient (REF) | payer OTHER, SELFPAY ==
--- NOTE | ~2023-06-20 | XR_ITS ---
EXAMINATION: XR FOOT, RIGHT CLINICAL INFORMATION: Rheumatoid arthritis with positive rheumatoid factor COMPARISON: None available. TECHNIQUE: AP, lateral, and oblique views of the right foot. FINDINGS: BONES: Bony structures are intact. Accessory ossicle is seen at proximal medial border of the right navicular. Small sharp dorsal and plantar calcaneal spurs are present. There is no focal bone destruction or periosteal reaction seen. JOINTS: Alignment of joints is normal. SOFT TISSUE: Soft tissue is normal. No radiopaque foreign body or abnormal air collection is seen. XR/XR foot RT min 3V IMPRESSION: 1. Small sharp dorsal and plantar calcaneal spurs are present. 2. No fracture or dislocation or signs of osteomyelitis are found.
--- NOTE | ~2023-06-20 | XR_ITS ---
EXAMINATION: XR WRIST, LEFT XR HAND, LEFT CLINICAL INFORMATION: Rheumatoid arthritis, positive rheumatoid factor COMPARISON: Left hand and wrist x-rays on 03/09/2012 TECHNIQUE: PA, lateral, and oblique views of the left wrist and PA, lateral, and oblique views of the left hand, frontal ulna deviation x-ray of left scaphoid FINDINGS: LEFT WRIST: The bones and soft tissues are normal. No fracture. Alignment is anatomic. Joint spaces are maintained. No erosions or soft tissue calcifications. LEFT HAND: The bones and soft tissues are normal. No fracture. Alignment is anatomic. Joint spaces are maintained. No erosions or soft tissue calcifications. XR/XR hand wrist LT IMPRESSION: Unchanged Normal left hand and wrist.
--- NOTE | ~2023-06-20 | XR_ITS ---
EXAMINATION: XR ANKLE, RIGHT CLINICAL INFORMATION: Rheumatoid arthritis with positive rheumatoid factor COMPARISON: Right ankle x-rays on 03/09/2012 TECHNIQUE: AP, lateral, and mortise views of the right ankle. FINDINGS: BONES: Bony structures are intact. Persistent small sharp dorsal and plantar calcaneal spurs are present. There is no focal bone destruction or periosteal reaction seen. JOINTS: Alignment of joints is normal. SOFT TISSUE: Soft tissue is normal. No radiopaque foreign body or abnormal air collection is seen. XR/XR ankle RT min 3V IMPRESSION: 1. Persistent small sharp dorsal and plantar calcaneal spurs are present. 2. No fracture or dislocation or signs of osteomyelitis are found.
--- NOTE | ~2023-06-20 | XR_ITS ---
EXAMINATION: XR WRIST, RIGHT XR HAND, RIGHT CLINICAL INFORMATION: Rheumatoid arthritis, positive rheumatoid factor COMPARISON: Right hand and wrist x-rays on 03/09/2012 TECHNIQUE: PA, lateral, and oblique views of the right wrist and PA, lateral, and oblique views of the right hand, frontal ulna deviation x-ray of right scaphoid FINDINGS: RIGHT WRIST: The bones and soft tissues are normal. No fracture. Alignment is anatomic. Joint spaces are maintained. No erosions or soft tissue calcifications. RIGHT HAND: The bones and soft tissues are normal. No fracture. Alignment is anatomic. Joint spaces are maintained. No erosions or soft tissue calcifications. XR/XR hand wrist RT IMPRESSION: Unchanged Normal right hand and wrist.
--- NOTE | ~2023-06-20 | XR_ITS ---
EXAMINATION: XR ANKLE, LEFT CLINICAL INFORMATION: Rheumatoid arthritis with positive rheumatoid factor COMPARISON: Left ankle x-rays on 03/09/2012 TECHNIQUE: AP, lateral, and mortise views of the left ankle. FINDINGS: BONES: Bony structures are intact. Persistent sharp dorsal calcaneal spur is present. There is no focal bone destruction or periosteal reaction seen. JOINTS: Alignment of joints is normal. SOFT TISSUE: Soft tissue is normal. No radiopaque foreign body or abnormal air collection is seen. XR/XR ankle LT min 3V IMPRESSION: 1. Unchanged prominent sharp dorsal calcaneal spur. 2. No fracture or dislocation or signs of osteomyelitis are found.
--- NOTE | ~2023-06-20 | XR_ITS ---
EXAMINATION: XR FOOT, LEFT CLINICAL INFORMATION: Rheumatoid arthritis with positive rheumatoid factor COMPARISON: None available. TECHNIQUE: AP, lateral, and oblique views of the left foot. FINDINGS: BONES: Bony structures are intact. Prominent sharp dorsal calcaneal score is present. There is no focal bone destruction or periosteal reaction seen. JOINTS: Alignment of joints is normal. SOFT TISSUE: Soft tissue is normal. No radiopaque foreign body or abnormal air collection is seen. XR/XR foot LT min 3V IMPRESSION: 1. Prominent sharp dorsal calcaneal score is present. 2. No fracture or dislocation or signs of osteomyelitis are found.
--- NOTE | ~2023-06-20 | XR_ITS ---
EXAMINATION: XR SHOULDER, RIGHT CLINICAL INFORMATION: Right shoulder pain COMPARISON: Right shoulder x-ray on 08/07/2020 TECHNIQUE: AP external rotation, Grashey, scapular Y, and axillary views of the right shoulder. FINDINGS: BONES: Bony structures are intact. Superior lateral right clavicle osteophyte is present. There is no focal bone destruction or periosteal reaction seen. JOINTS: Alignment of joints is normal. SOFT TISSUE: Soft tissue is normal. No radiopaque foreign body or abnormal air collection is seen. XR/XR shoulder RT min 2V IMPRESSION: 1. Unchanged right acromioclavicular joint osteoarthritis. 2. No fracture or dislocation or signs of osteomyelitis are found.
== END 2023-06-20 13:45 | disposition home or self-care (01) ==
LOC: HO.XRAY 13:44
PROVIDERS: PCP Internal Medicine; Referring Provider Student in an Organized Health Care Education/Training Program; Visit Provider Internal Medicine
DX: M05.9 Rheumatoid arthritis with rheumatoid factor, unspecified (principal); M25.511 Pain in right shoulder
CPT/HCPCS: 73030; 73110; 73130; 73610; 73630

== ENCOUNTER → 2023-07-10 08:55 | Outpatient (REF) | payer OTHER, SELFPAY | LOC: HO.SL 08:55 | PROVIDERS: PCP Internal Medicine; Visit Provider Internal Medicine | DX: G47.33 Obstructive sleep apnea (adult) (pediatric) (principal) | CPT/HCPCS: 95806 ==

== ENCOUNTER → 2023-07-10 09:28 | Outpatient (BNV) | payer OTHER, SELFPAY | PROVIDERS: PCP Internal Medicine; Visit Provider Internal Medicine | DX: G47.33 Obstructive sleep apnea (adult) (pediatric) (principal) | CPT/HCPCS: 95806 ==

== ENCOUNTER 2023-08-01 13:20 | Outpatient (AMB) | payer OTHER, SELFPAY ==
[2023-08-01 13:23] VITALS: BP 146/80; PULSE 85; O2SAT 98; BMI 44.4
--- NOTE | 2023-08-01 13:23 | MHC.PC.OV ---
Vital Signs 08/01/23 13:23 Height 5 ft 5 in Weight 267 lb 2 oz BMI 44.4 BP 146/80 H Blood Pressure Location Lt brachial Position Sitting Pulse 85 Pulse Source Pulse Oximeter Pulse Oximetry (%) 98 Oxygen Delivery Method Room Air Intake Visit Reasons: personal dicussion Operating System Programmer Required: No Food Technologist: Not Required per policy Accompanied by: Self / Same As Patient Allergies No Known Allergies [No Known Allergies*] Allergy (Verified 08/01/23 13:23) Medication List - Last Reconciled 08/01/23 by Eduardo Mcclain MD albuterol sulfate 90 mcg/actuation 2 puffs inhalation QID PRN amlodipine 10 mg PO DAILY 90 days baclofen 10 mg PO BEDTIME PRN gemfibrozil 600 mg PO BID Tobacco use date assessed: 08/01/23 Dental Screening Dental Screen Date: 08/01/23 Did you have a dental visit in the last 12 months?: No Did you have a dental problem in the last 6 months where you did not have access to dental care?: No Was dental information given to patient?: Patient has dentist HPI personal dicussion HPI Details pain right shoulder; XR shows OA but prob has a soft tissue issue also PFSH Medical History Transaminitis Elevated cholesterol HTN (hypertension) LOGAN (obstructive sleep apnea) Morbid obesity Seropositive rheumatoid arthritis Encounter for general adult medical examination without abnormal findings Surgical History Hx of facial fracture repair History of detached retina repair Hx of colonoscopy H/O rectal polypectomy Family History Brother No problems noted. Brother No problems noted. Sister No problems noted. Sister No problems noted. Social History Housing: House Alcohol intake: current Patient Tobacco Use Status: Never used Tobacco e-Cigarette/Vaping Use: Never Used Second Hand Smoke Exposure: No service: No Current occupational status: employed Current occupation: Psychotherapist, [employer] Cognitive needs: No Hearing needs: No Vision needs: Yes Questionnaire PHQ-9 Over the last 2 weeks, how often have you been bothered by any of the following problems? 1. Little interest or pleasure in doing things: not at all 2. Feeling down, depressed, or hopeless: not at all 3. Trouble falling or staying asleep, or sleeping too much: not at all 4. Feeling tired or having little energy: not at all 5. Poor appetite or overeating: not at all 6. Feeling bad about yourself - or that you are a failure or have let yourself or your family down: not at all 7. Trouble concentrating on things, such as reading the newspaper or watching television: not at all 8. Moving or speaking so slowly that other people could have noticed. Or the opposite - being so fidgety or restless that you have been moving around a lot more than usual: not at all 9. Thoughts that you would be better off or of hurting yourself in some way: not at all Total score: 0 Depression Screening Interpretation: Negative Depression Screening Done: Yes Source: Developed by Drs. Benoit Barroso, Clarita Edmonds, Jt Melendez and colleagues, with an educational mary jane from [employer]. Thrive Questionnaire Date Thrive assessed: 08/01/23 I am a: Patient What is your living situation today?: I have a steady place to live Within the past 12 months, did the food you bought not last and you didn't have the money to get more?: Never true Within the past 12 months, did you worry whether your food would run out before you got money to buy more?: Never true Do you have trouble paying for medicines?: No Do you have trouble getting transportation to medical appointments?: No Do you have trouble paying your heating and electricity bill?: No Do you have trouble taking care of your child, family member or friend?: No Do you have trouble with day-to-day activities such as bathing, preparing meals, shopping, managing finances, etc.?: No Are you currently unemployed and looking for a job?: No Are you interested in more education?: No Please select the resources that you would like help with: None AUDIT C Alcohol Use Questionnaire (AUDIT-C) 1. How often do you have a drink containing alcohol?: Never Total Score: 0 Score Reviewed/Action Taken: Yes CHRISTY-7 AMB Questionnaire CHRISTY-7 Date CHRISTY - 7 assessed: 08/01/23 Feeling nervous, anxious, or on edge: 0 = Not at all Not being able to stop or control worryin = Not at all Worrying too much about different things: 0 = Not at all Trouble relaxin = Not at all Being so restless that it is hard to sit still: 0 = Not at all Becoming easily annoyed or irritable: 0 = Not at all Feeling afraid as if something awful might happen: 0 = Not at all Total CHRISTY-7 score (0-4 normal; 5-9 mild; 10-14 moderate; 15-21 severe): 0 Source: Developed by Drs. Benoit Barroso, Clarita Edmonds, Jt Melendez and colleagues, with an educational mary jane from [employer]. Review of Systems Const Denies chills, Denies headache(s) and Denies weight loss ENT Denies headache(s) Card Denies chest pain, Denies syncope, Denies irregular heart rhythm and Denies dyspnea Resp Denies chest congestion, Denies cough and Denies dyspnea GI Denies abdominal pain, Denies change in stool character, Denies nausea and Denies vomiting Musc Denies deformity and Denies joint swelling Neuro Denies syncope and Denies headache(s) Physical exam (Primary Care) Vital Signs: Last Vital Signs Pulse 85 08/01/23 13:23 BP 146/80 H 08/01/23 13:23 Pulse Ox 98 08/01/23 13:23 Oxygen Delivery Method Room Air 08/01/23 13:23 BMI result Body Mass Index 44.4 Tobacco/Smoking Status: Tobacco use Status Tobacco use date assessed 08/01/23 08/01/23 13:24 Patient Tobacco Use Status Never used Tobacco 08/01/23 13:24 e-Cigarette/Vaping Use Never Used 08/01/23 13:24 PHQ-9: PHQ-9 Score PHQ-9: Total score 0 08/01/23 13:29 Depression Screening Interpretation: Negative Thrive Assessment: Date of Thrive Assessment Date Thrive assessed 08/01/23 08/01/23 13:24 Const General: cooperative, comfortable, no acute distress and alert Neck Neck: Yes no lymphadenopathy Thyroid: Thyroid normal Resp Effort & Inspection: normal respiratory effort Auscultation: clear to auscultation bilaterally Percussion: percussion normal Cardio Jugular venous distension: no JVD Palpation: normal PMI Rate: regular rate Rhythm: regular rhythm Heart sounds: S1 normal heart sound present and S2 normal heart sound present GI Inspection: Yes normal to inspection Palpation (GI): No hepatosplenomegaly present Skin General skin exam: no rashes or lesions noted Extrem General: Yes no clubbing, cyanosis or edema Assessment and Plan Assessment & Plan (1) Shoulder pain: Code(s): M25.519 - Pain in unspecified shoulder Orders: Orders PT Evaluation and Treatment Today M25.519 - Pain in unspecified shoulder Referrals Urology Referral R35.1 - Nocturia Coding Level of Care Code Est Pt Level 3 (55245) Diagnoses Shoulder pain M25.519 Additional Codes PHQ-9 - 22309 - PHQ-9 Billing: ([id number])
== END 2023-08-01 13:41 | disposition home or self-care (01) ==
PROVIDERS: PCP Internal Medicine; Visit Provider Internal Medicine
DX: M25.519 Pain in unspecified shoulder (principal)
CPT/HCPCS: 99213

== ENCOUNTER 2023-09-25 15:24 | Outpatient (AMB) | payer OTHER, SELFPAY ==
--- NOTE | 2023-09-25 15:30 | MHC.OFFVIS ---
Intake Intake Visit Reasons: Nocturia Intake Note: New Patient prsents today to etablish treatment for Nocturia Allergies to antibiotics: None Blood thinners: None medications:None PVR: 0ml Patient stated he goes to the bathroom at night from 2 to 5 times, and also stated he has erectile dysfunction issues. Cafe Manager Required: No Accompanied by: Self / Same As Patient Allergies No Known Allergies [No Known Allergies*] Allergy (Verified 09/25/23 20:00) Medication List - Last Reconciled 09/25/23 by KEARA Loyd albuterol sulfate 90 mcg/actuation 2 puffs inhalation QID PRN amlodipine 10 mg PO DAILY 90 days baclofen 10 mg PO BEDTIME PRN CPAP (CPAP Machine/Device) As directed auto 6-20 gemfibrozil 600 mg PO BID HPI HPI Comments History of Present Illness Details Tru is a very pleasant 58-year-old male patient of Dr. Mcclain. He has a past medical history of transaminitis, hyperlipidemia, hypertension, obstructive sleep apnea, obesity, and rheumatoid arthritis. He presents to the office today as a new patient for ongoing lower urinary tract symptoms. In discussion with the patient today he reports noting worsening ongoing lower urinary tract symptoms that have been present for the last few months. She reports episodes of nocturia up to 5 times per night however within the last 2-3 weeks feels this has since subsided. He reports to be getting up approximately 1-2 times per night. When asked he does report a longstanding history of sleep apnea and is undergoing new workup as his previous machine was out of date. He reports to be getting a new sleep apnea machine within the next month. He otherwise denies urinary urgency, urinary frequency, incontinence, hematuria, dysuria, foul smelling urine, changes to urinary stream, flank pain, fever, and or chills. Discussed at length potential causes of nocturia. He also reports to be having issues maintaining his erections. He does report sexual desire and he is able to obtain erections however at times does not feel he can maintain his erections. Discussed at length potential causes of erectile dysfunction. Discussed lifestyle modifications to assist with erectile dysfunction as well as nocturia. In office urinalysis results reviewed with the patient today. PVR 0 mL. Discussed obtaining retroperitoneal ultrasound, PSA, and testosterone for further assessment evaluation. He otherwise offers no other issues or concerns. [facility] Medical History Transaminitis Elevated cholesterol HTN (hypertension) LOGAN (obstructive sleep apnea) Morbid obesity Seropositive rheumatoid arthritis Encounter for general adult medical examination without abnormal findings Surgical History Hx of facial fracture repair History of detached retina repair Hx of colonoscopy H/O rectal polypectomy Family History Brother No problems noted. Brother No problems noted. Sister No problems noted. Sister No problems noted. Social History Housing: House Alcohol intake: current Patient Tobacco Use Status: Never used Tobacco e-Cigarette/Vaping Use: Never Used Second Hand Smoke Exposure: No service: No Current occupational status: employed Current occupation: Psychotherapist, [employer] Cognitive needs: No Hearing needs: No Vision needs: Yes Review of Systems Const Reports as per [facility] Eyes Reports no additional complaints ENT Reports no additional complaints Card Reports as per HPI Resp Reports as per HPI GI Reports as per HPI Reports as per HPI Musc Reports as per HPI Neuro Reports no additional complaints Psych Reports no additional complaints Endo Reports no additional complaints Curt/Lymph Reports no additional complaints Aller/Immun Reports no additional complaints Physical Exam Const General: cooperative, comfortable, no acute distress, well developed, alert and awake Nutritional Appearance: overweight Orientation/consciousness: patient oriented x3 Limitations: no limitations HEENT Head: Yes normal to inspection, Yes normocephalic and Yes atraumatic Ears: hearing grossly normal bilaterally Eyes General: appearance normal, both eyes and all related structures Neck Neck: Yes normal visual inspection and Yes trachea midline Chest Chest palpation & inspection: normal inspection of the chest Resp Effort & Inspection: normal respiratory effort and able to speak in complete sentences Cardio Rate: regular rate GI Inspection: Yes normal to inspection General: Yes no CVA tenderness Back/Spine/Pelvis Back: no CVA tenderness Skin General skin exam: no rashes or lesions noted Neuro General: patient oriented x3 Extrem General: Yes normal to inspection Psych Appearance: grossly normal and well kempt Mental Status: mental status grossly normal Speech and movement: Normal speech and movement present and Clear speech present Affect: normal affect Attitude: cooperative Thought process: Normal thought process present Thought content: Normal thought content present Insight: Fair insight present (Psych) Judgement: Fair judgement present (Psych) Office Procedures Post Void Residual Post Residual Void Post Void Residual (PVR): 0 56459-Bgnt Void Residual by ultrasound Results AMB Urinalysis, Automated UA Leukoctes 0 Mark/uL Last Edit by [facility], [facility] on 09/25/23 15:52 UA Nitrite Negative Last Edit by [facility], [facility] on 09/25/23 15:52 UA Urobilinogen 0.2 mg/dL Last Edit by [facility], [facility] on 09/25/23 15:52 UA Protein 15 mg/dL Last Edit by [facility], [facility] on 09/25/23 15:52 UA pH 6.0 Last Edit by [facility], [facility] on 09/25/23 15:52 UA Blood 0 Shine/uL Last Edit by [facility], [facility] on 09/25/23 15:52 UA Specific [place] 1.025 Last Edit by [facility], [facility] on 09/25/23 15:52 UA Ketone Negative Last Edit by [facility], [facility] on 09/25/23 15:52 UA Bilirubin 0 mg/dL Last Edit by [facility], [facility] on 09/25/23 15:52 UA Glucose 0 mg/dL Last Edit by [facility], [facility] on 09/25/23 15:52 Results Reviewed Results Reviewed: Laboratory Last Values Urine pH (Auto) 6.0 09/25/23 15:41 Specific [place] (Auto) 1.025 09/25/23 15:41 Urine Protein (Auto) 15 mg/dL 09/25/23 15:41 Glucose (UA)(Auto) 0 mg/dL 09/25/23 15:41 Urine Ketones (Auto) Negative 09/25/23 15:41 Urine Blood (Auto) 0 Shine/uL 09/25/23 15:41 Urine Nitrite (Auto) Negative 09/25/23 15:41 Urine Bilirubin (Auto) 0 mg/dL 09/25/23 15:41 Urine Urobilinogen (Auto) 0.2 mg/dL 09/25/23 15:41 Leukocyte Esterase (Auto) 0 Mark/uL 09/25/23 15:41 Assessment & Plan Assessment & Plan (1) Nocturia: Code(s): R35.1 - Nocturia (2) Erectile dysfunction: Code(s): N52.9 - Male erectile dysfunction, unspecified Plan In office urinalysis results reviewed with the patient today; as noted above. PVR 0 mL. Discussed at length potential causes of nocturia. Discussed at length lifestyle modifications to assist with nocturia as well as erectile dysfunction. Discussed importance of following up for new sleep study machine in correlation of nocturia with sleep apnea. Will obtain retroperitoneal ultrasound for further assessment evaluation. Will obtain PSA, testosterone, and free testosterone for further assessment evaluation. Start Cialis 5 mg daily as discussed and prescribed. P.r.n. prescription provided for Cialis. Discussed, educated, and stressed the importance of weight loss, adequate sleep, and daily activity for improvement in erectile dysfunction as well as overall health and well-being. Follow-up in 1-3 months with imaging and labs to be completed prior; or sooner with any issues, concerns, and or questions. Orders: Orders AMB Urinalysis Automated 09/25/23 R33.9 - Retention of urine, unspecified AMB Post Void Residual by ultrasound 09/25/23 R33.9 - Retention of urine, unspecified Testosterone, Free/Total 09/25/23 N52.9 - Male erectile dysfunction, unspecified Prostate Specific Antigen 09/25/23 R35.1 - Nocturia US retroperitoneal comp 09/25/23 R35.1 - Nocturia Medications: New tadalafil (Cialis) [id number] [facility] [id number] Member [id number] 5 mg PO DAILY 90 tabs 1RF 90 days tadalafil (Cialis) administer approximately 30min before sexual activity; do not use more than 1 dose per 24hrs [id number] [facility] [id number] Member [id number] 20 mg PO DAILY PRN 10 tabs 2RF sexual activity 30 days Patient Instructions: The patient had an opportunity to ask questions regarding the treatment plan. All questions were answered. Physical exam, labs, and imaging were discussed and reviewed in detail. As well as risks, benefits, and discussion of treatment choices. No major barriers to understanding were identified. The patient expressed understanding and agreement with the above treatment plan. The patient was made aware they should contact our office by phone for worsening of their current condition, the appearance of new symptoms, or with any questions or concerns. Compliance is encouraged with any medications and follow up testing that is ordered. It is a privilege to be allowed the opportunity to participate in? your urological care.? Again, if you have any questions or concerns If you have any questions or concerns please do not hesitate to contact me. The office is [phone]. This note is constructed using voice recognition software. While every effort has been made to ensure accuracy s3b multi sensor operator errors may have been included. Yours sincerely, SLAVA Loyd Coding Level of Care Code New Pt Level 4 (08917) Diagnoses Nocturia R35.1 Erectile dysfunction N52.9 CPT Codes Post Residual Void - PVR CPT Code: 45069-Eivn Void Residual by ultrasound ([id number])
== END 2023-09-25 16:19 | disposition home or self-care (01) ==
PROVIDERS: PCP Internal Medicine; Visit Provider Nurse Practitioner Family
DX: R35.1 Nocturia (principal); N52.9 Male erectile dysfunction, unspecified
CPT/HCPCS: 99204

== ENCOUNTER → 2023-09-25 15:24 | Outpatient (BNVA) | payer OTHER, SELFPAY | PROVIDERS: PCP Internal Medicine; Visit Provider Nurse Practitioner Family | DX: R35.1 Nocturia (principal); R33.9 Retention of urine, unspecified; N52.9 Male erectile dysfunction, unspecified | CPT/HCPCS: 51798; 81003 ==

== ENCOUNTER 2023-12-27 15:50 | Outpatient (REF) | payer OTHER, SELFPAY ==
--- NOTE | ~2023-12-27 | US_ITS ---
EXAMINATION: US RETROPERITONEAL LIMITED (RENAL ONLY) CLINICAL INFORMATION: Nocturia. COMPARISON: CT abdomen and pelvis 05/09/2022. Ultrasound abdomen limited 04/22/2022. Ultrasound abdomen 04/19/2016. TECHNIQUE: Real-time imaging of the kidneys. Technically limited study secondary to body habitus. FINDINGS: RIGHT KIDNEY: 12.2 x 5.8 x 4.8 cm (SAG x AP x TRV). No hydronephrosis. No renal calculi. Renal cortical thickness is normal. Limited visualization. 3.6 x 2.4 x 4.2 cm right upper pole cyst with diffuse internal echoes is difficult to characterized due to limited visualization. CT scan of 11/07/2021 demonstrated a 4.7 x 4.0 cm right renal upper pole cyst. This cyst was not appreciated on prior ultrasound of 2015. LEFT KIDNEY: 13.5 x 6.4 x 5.6 cm (SAG x AP x TRV). No hydronephrosis. No renal calculi. Renal cortical thickness is normal. Limited visualization. US/US renal BI IMPRESSION: 3.6 x 2.4 x 4.2 cm right upper pole cyst with diffuse internal echoes is difficult to characterized due to limited visualization. CT scan of 11/07/2021 demonstrated a 4.7 x 4.0 cm right renal upper pole cyst. This cyst was not appreciated on prior ultrasound of 2015.
[2023-12-27 18:25] LABS: Prostate Specific Antigen 1.53 ng/mL (<0.05-4.0)
[2024-01-02 15:23] LABS: Testosterone, Free 38.8 pg/mL (35.0-155.0); Testosterone, Total 118 ng/dL (250-1100)
== END 2023-12-27 15:51 | disposition home or self-care (01) ==
LOC: HO.US 15:50
PROVIDERS: PCP Internal Medicine; Visit Provider Nurse Practitioner Family
DX: N52.9 Male erectile dysfunction, unspecified (principal); R35.1 Nocturia; Z12.5 Encounter for screening for malignant neoplasm of prostate
CPT/HCPCS: 36415; 76775; 84153; 84402; 84403

== ENCOUNTER 2024-01-02 12:26 | Outpatient (REF) | payer OTHER, SELFPAY ==
--- NOTE | ~2024-01-02 | US_ITS ---
EXAMINATION: US PELVIS LIMITED (BLADDER) CLINICAL INFORMATION: Nocturia. COMPARISON: CT abdomen and pelvis 05/09/2022. TECHNIQUE: Real-time imaging of the bladder. FINDINGS: BLADDER: Well distended and normal. Bilateral ureteral jets are demonstrated. Prevoid bladder volume is 152 mL. Postvoid bladder volume is 44 mL. ADDITIONAL FINDINGS: There is mild BPH with prostate measuring 4.4 x 3.9 x 3.9 cm for a volume of 36 mL. US/US bladder IMPRESSION: Mild BPH measuring 36 mL with a 44 mL postvoid residual.
== END 2024-01-02 12:27 | disposition home or self-care (01) ==
LOC: HO.US 12:26
PROVIDERS: PCP Internal Medicine; Visit Provider Nurse Practitioner Family
DX: R35.1 Nocturia (principal)
CPT/HCPCS: 76857

== ENCOUNTER 2024-01-22 08:13 | Outpatient (AMB) | payer OTHER, SELFPAY ==
[2024-01-22 08:28] VITALS: BP 126/70; PULSE 63; BMI 44.6
--- NOTE | 2024-01-22 08:28 | A.OFFVIS_ITS ---
Vital Signs 01/22/24 08:28 Height 5 ft 5 in Weight 268 lb 1.314 oz BMI 44.6 BP 126/70 Blood Pressure Location Lt brachial Position Sitting Pulse 63 Pulse Source Monitor Intake Visit Reasons: 1 YEAR FOLLOW UP AFTER CALCIUM SCORE Rehabilitation Technician Required: No Accompanied by: Self / Same As Patient Allergies No Known Allergies [No Known Allergies*] Allergy (Verified 09/25/23 20:00) Medication List - Last Reconciled 01/22/24 by Mendoza Garcia MD albuterol sulfate 90 mcg/actuation 2 puffs inhalation QID PRN amlodipine 10 mg PO DAILY 90 days baclofen 10 mg PO BEDTIME PRN CPAP (CPAP Machine/Device) As directed auto 6-20 gemfibrozil 600 mg PO BID tadalafil (Cialis) 5 mg PO DAILY 90 days tadalafil (Cialis) 20 mg PO DAILY PRN 30 days HPI Comments Details: Tru comes for follow-up. Doing well from cardiac perspective. Denies any overt cardiac symptoms. Continues to play doubles tennis without symptoms. Denies any exertional chest pain or shortness of breath. Uses CPAP/BiPAP every night. Able to tolerated. Blood pressure today is well controlled. Does not measure blood pressure at home. No recent lipid panel. His last year coronary calcium score was score of 1 in the LAD territory which is not significantly elevated. Denies any palpitations, lightheadedness, syncope. Denies any heart failure symptoms. [facility] Medical History Transaminitis Elevated cholesterol HTN (hypertension) LOGAN (obstructive sleep apnea) Morbid obesity Seropositive rheumatoid arthritis Encounter for general adult medical examination without abnormal findings Surgical History Hx of facial fracture repair History of detached retina repair Hx of colonoscopy H/O rectal polypectomy Family History Brother No problems noted. Brother No problems noted. Sister No problems noted. Sister No problems noted. Social History Housing: House Alcohol intake: current Patient Tobacco Use Status: Never used Tobacco e-Cigarette/Vaping Use: Never Used Second Hand Smoke Exposure: No service: No Current occupational status: employed Current occupation: Psychotherapist, [employer] Cognitive needs: No Hearing needs: No Vision needs: Yes Review of Systems Const Denies chills, Denies fatigue, Denies fever(s), Denies frequent falls, Denies weakness, Denies weight gain and Denies weight loss ENT Denies dizziness Card Denies chest pain, Denies leg edema, Denies lightheadedness, Denies palpitations, Denies dyspnea and Denies dyspnea on exertion Resp Denies cough, Denies dyspnea and Denies dyspnea on exertion GI Denies hematochezia Musc Denies abnormal gait, Denies muscle weakness, Denies numbness, Denies radiating pain into limb and Denies tingling Neuro Denies Abnormal speech present, Denies abnormal gait, Denies dizziness, Denies frequent falls, Denies numbness, Denies tingling and Denies weakness Endo Denies fatigue and Denies palpitations Physical Exam Vital Signs: BMI result Body Mass Index 44.6 Const General: cooperative, comfortable, no acute distress, alert and awake Nutritional Appearance: obese Orientation/consciousness: patient oriented x3 Neck Neck: Yes trachea midline and Yes no JVD Chest Chest palpation & inspection: normal inspection of the chest Resp Effort & Inspection: normal respiratory effort Auscultation: clear to auscultation bilaterally Cardio Jugular venous distension: no JVD Palpation: normal PMI Rate: regular rate Rhythm: regular rhythm Heart sounds: S1 normal heart sound present, S2 normal heart sound present, no click, no gallops, no murmurs and no rubs GI Inspection: Yes obesity Auscultation: normal bowel sounds Skin General skin exam: no rashes or lesions noted Neuro General: patient oriented x3 Speech: No Abnormal speech present Extrem General: Yes no clubbing, cyanosis or edema Psych Appearance: grossly normal Office Procedures EKG Details: EKG shows normal sinus rhythm with rightward axis with nonspecific intraventricular conduction delay 77858-[id number], Complete Assessment & Plan Assessment & Plan (1) Hypertension: Code(s): I10 - Essential (primary) hypertension Category: Medical Plan: Hypertension is currently well optimized. Continue current therapy. Continue CPAP/BiPAP therapy for sleep apnea. Continue participate in aggressive weight loss program. No recent lipid panel. Would suggest a lipid panel in the next week or so. Target goal LDL less than 100 mg/dL. Can consider statin therapy still elevated. Minimal calcium score in the coronary arteries. Advised to call me with any new symptoms. Advised to monitor blood pressure at home maintain a log. Goal blood pressure less than 130/84. Low-salt diet was discussed. Encouraged to continue to participate in physical activity as tolerated. Will follow up in the clinic in 2 years time, sooner p.r.n.. Thank you for allowing me to partake in his care Orders: Orders Lipid Panel Today I10 - Essential (primary) hypertension Coding Level of Care Code Est Pt Level 3 (13647) Diagnoses Hypertension I10 CPT Codes EKG - CPT: 44164-Cuaasrfnjxgddovan, Complete ([id number])
== END 2024-01-22 09:04 | disposition home or self-care (01) ==
PROVIDERS: PCP Internal Medicine; Visit Provider Internal Medicine Cardiovascular Disease
DX: I10 Essential (primary) hypertension (principal)
CPT/HCPCS: 93010; 99213

== ENCOUNTER → 2024-01-22 08:13 | Outpatient (BNVA) | payer OTHER, SELFPAY | PROVIDERS: PCP Internal Medicine; Visit Provider Internal Medicine Cardiovascular Disease | DX: I10 Essential (primary) hypertension (principal) | CPT/HCPCS: 93005 ==

== ENCOUNTER 2024-02-21 15:39 | Outpatient (AMB) | payer OTHER, SELFPAY ==
--- NOTE | 2024-02-21 15:45 | A.OFFVIS_ITS ---
Intake Visit Reasons: follow up/Labs(set) Intake Note: Patient presents today for follow up on: nocturia and erectile dysfunction Allergies to antibiotics: None Blood thinners: None medications: Tadalafil PVR: 27ml's Parachute Packer Required: No Accompanied by: Self / Same As Patient Allergies No Known Allergies [No Known Allergies*] Allergy (Verified 02/21/24 20:33) Medication List - Last Reconciled 02/21/24 by SLAVA Loyd albuterol sulfate 90 mcg/actuation 2 puffs inhalation QID PRN amlodipine 10 mg PO DAILY 90 days baclofen 10 mg PO BEDTIME PRN CPAP (CPAP Machine/Device) As directed auto 6-20 gemfibrozil 600 mg PO BID tadalafil (Cialis) 5 mg PO DAILY 90 days tadalafil (Cialis) 20 mg PO DAILY PRN 30 days HPI Comments Details: Tru is a very pleasant 59-year-old male patient of Dr. Mcclain. He has a past medical history of transaminitis, hyperlipidemia, hypertension, obstructive sleep apnea, obesity, and rheumatoid arthritis. He presents to the office today for follow-up. Of note, patient was seen approximately 4 months ago as a new patient for ongoing lower urinary tract symptoms as well as erectile dy sfunction at which time testosterone labs and PSA were ordered for further assessment evaluation. In discussion with the patient today he reports since his last office visit here he has been more compliant with his sleep apnea machine and has noticed significant improvement in episodes of nocturia. He also reports feeling 5 mg of Cialis daily with p.r.n. Cialis has been helpful maintaining his erections. He does continue to report fatigue upon wakening as well as mental fog. Recent labs reviewed with the patient today. 01/14 1.5, testosterone 118, free testosterone 38.8. He otherwise denies urinary urgency, urinary frequency, incontinence, hematuria, dysuria, foul smelling urine, changes to urinary stream, flank pain, fever, and or chills. Discussed at length potential causes of hypogonadism, nocturia, and ED. Discussed lifestyle modifications to assist with erectile dysfunction as well as hypogonadism. In office urinalysis results reviewed with the patient today. PVR 27mL. Bilateral kidneys with no calculi or nephrolithiasis. 4.2 cm right upper pole cyst with diffuse internal echoes is difficult to characterize due to limited visualization. CT scan of 11/12 demonstrates right renal pole cyst. The bladder is well distended and normal. Bladder jets are demonstrated. Pre void bladder volume is approximately 150 mL. Postvoid bladder volume is approximately 50 mL. There is mild BPH with prostate measuring 36 mL. He otherwise offers no other issues or concerns. [facility] Medical History Transaminitis Elevated cholesterol HTN (hypertension) LOGAN (obstructive sleep apnea) Morbid obesity Seropositive rheumatoid arthritis Encounter for general adult medical examination without abnormal findings Surgical History Hx of facial fracture repair History of detached retina repair Hx of colonoscopy H/O rectal polypectomy Family History Brother No problems noted. Brother No problems noted. Sister No problems noted. Sister No problems noted. Social History Housing: House Alcohol intake: current Patient Tobacco Use Status: Never used Tobacco e-Cigarette/Vaping Use: Never Used Second Hand Smoke Exposure: No service: No Current occupational status: employed Current occupation: Psychotherapist, [employer] Cognitive needs: No Hearing needs: No Vision needs: Yes Review of Systems Const Reports as per HPI Eyes Reports no additional complaints ENT Reports no additional complaints Card Reports as per HPI Resp Reports as per HPI GI Reports as per HPI Reports as per HPI Musc Reports as per HPI Neuro Reports no additional complaints Psych Reports no additional complaints Endo Reports no additional complaints Curt/Lymph Reports no additional complaints Aller/Immun Reports no additional complaints Physical Exam Const General: cooperative, comfortable, no acute distress, well developed, alert and awake Nutritional Appearance: overweight Orientation/consciousness: patient oriented x3 Limitations: no limitations HEENT Head: Yes normal to inspection, Yes normocephalic and Yes atraumatic Ears: hearing grossly normal bilaterally Eyes General: appearance normal, both eyes and all related structures Neck Neck: Yes normal visual inspection and Yes trachea midline Chest Chest palpation & inspection: normal inspection of the chest Resp Effort & Inspection: normal respiratory effort and able to speak in complete sentences Cardio Rate: regular rate GI Inspection: Yes normal to inspection General: Yes no CVA tenderness Back/Spine/Pelvis Back: no CVA tenderness Skin General skin exam: no rashes or lesions noted Neuro General: patient oriented x3 Extrem General: Yes normal to inspection Psych Appearance: grossly normal and well kempt Mental Status: mental status grossly normal Speech and movement: Normal speech and movement present and Clear speech present Affect: normal affect Attitude: cooperative Thought process: Normal thought process present Thought content: Normal thought content present Insight: Fair insight present (Psych) Judgement: Fair judgement present (Psych) Office Procedures Post Void Residual Post Residual Void Post Void Residual (PVR): 27 [id number] Void Residual by ultrasound Results AMB Urinalysis, Automated UA Leukoctes 0 Mark/uL Last Edit by [employer] on 02/21/24 16:29 UA Nitrite Negative Last Edit by [employer] on 02/21/24 16:29 UA Urobilinogen 0.2 mg/dL Last Edit by [employer] on 02/21/24 16:29 UA Protein 15 mg/dL Last Edit by [employer] on 02/21/24 16:29 UA pH 8.5 Last Edit by [employer] on 02/21/24 16:29 UA Blood 0 Shine/uL Last Edit by [employer] on 02/21/24 16:29 UA Specific [place] 1.010 Last Edit by [employer] on 02/21/24 16:29 UA Ketone Negative Last Edit by [employer] on 02/21/24 16:29 UA Bilirubin 0 mg/dL Last Edit by [employer] on 02/21/24 16:29 UA Glucose 0 mg/dL Last Edit by [employer] on 02/21/24 16:29 Results Reviewed Results Reviewed: Laboratory Last Values Urine pH (Auto) 8.5 02/21/24 15:53 Specific [place] (Auto) 1.010 02/21/24 15:53 Urine Protein (Auto) 15 mg/dL 02/21/24 15:53 Glucose (UA)(Auto) 0 mg/dL 02/21/24 15:53 Urine Ketones (Auto) Negative 02/21/24 15:53 Urine Blood (Auto) 0 Shine/uL 02/21/24 15:53 Urine Nitrite (Auto) Negative 02/21/24 15:53 Urine Bilirubin (Auto) 0 mg/dL 02/21/24 15:53 Urine Urobilinogen (Auto) 0.2 mg/dL 02/21/24 15:53 Leukocyte Esterase (Auto) 0 Mark/uL 02/21/24 15:53 Date of Service: 12/27/23 EXAMINATION: US RETROPERITONEAL LIMITED (RENAL ONLY) FINDINGS: RIGHT KIDNEY: 12.2 x 5.8 x 4.8 cm (SAG x AP x TRV). No hydronephrosis. No renal calculi. Renal cortical thickness is normal. Limited visualization. 3.6 x 2.4 x 4.2 cm right upper pole cyst with diffuse internal echoes is difficult to characterized due to limited visualization. CT scan of 11/07/2021 demonstrated a 4.7 x 4.0 cm right renal upper pole cyst. This cyst was not appreciated on prior ultrasound of 2015. LEFT KIDNEY: 13.5 x 6.4 x 5.6 cm (SAG x AP x TRV). No hydronephrosis. No renal calculi. Renal cortical thickness is normal. Limited visualization. IMPRESSION: 3.6 x 2.4 x 4.2 cm right upper pole cyst with diffuse internal echoes is difficult to characterized due to limited visualization. CT scan of 11/07/2021 demonstrated a 4.7 x 4.0 cm right renal upper pole cyst. This cyst was not appreciated on prior ultrasound of 2015. Date of Service: 01/02/24 EXAMINATION: US PELVIS LIMITED (BLADDER) FINDINGS: BLADDER: Well distended and normal. Bilateral ureteral jets are demonstrated. Prevoid bladder volume is 152 mL. Postvoid bladder volume is 44 mL. ADDITIONAL FINDINGS: There is mild BPH with prostate measuring 4.4 x 3.9 x 3.9 cm for a volume of 36 mL. IMPRESSION: Mild BPH measuring 36 mL with a 44 mL postvoid residual. Assessment & Plan Assessment & Plan (1) Hypogonadism in male: Code(s): E29.1 - Testicular hypofunction Category: Medical (2) Erectile dysfunction: Code(s): N52.9 - Male erectile dysfunction, unspecified Category: Medical (3) Nocturia: Code(s): R35.1 - Nocturia Category: Medical (4) Enlarged prostate: Code(s): N40.0 - Benign prostatic hyperplasia without lower urinary tract symptoms Category: Medical Plan In office urinalysis results reviewed with the patient today; as noted above. PVR 27 mL. Recent testosterone, PSA, and retroperitoneal ultrasound results reviewed with the patient today; as noted above. Continue daily dose of Cialis as well as on demand dosing. Discussed at length potential causes of hypogonadism, ED, and nocturia. Discussed lifestyle modifications to assist with hypogonadism, ED, and nocturia. Discussed importance of compliance with sleep apnea machine for lower urinary tract symptoms as well as overall health and well-being. Will obtain SHBG, estradiol, LH, prolactin, testosterone free and total, and FSH for further assessment evaluation. Follow-up in 1-2 months with labs to be completed prior; or sooner with any issues, concerns, and or questions. Orders: Orders AMB Urinalysis Automated Today Z13.9 - Encounter for screening, unspecified Sex Hormone Binding Globulin Today E29.1 - Testicular hypofunction Estradiol Ultra Sensitive Today E29.1 - Testicular hypofunction AMB Post Void Residual by ultrasound Today R35.1 - Nocturia Lutenizing Hormone Today E29.1 - Testicular hypofunction Prolactin Today E29.1 - Testicular hypofunction Testosterone, Free/Total Today E29.1 - Testicular hypofunction Follicle Stimulating Hormone Today E29.1 - Testicular hypofunction Patient Instructions: The patient had an opportunity to ask questions regarding the treatment plan. All questions were answered. Physical exam, labs, and imaging were discussed and reviewed in detail. As well as risks, benefits, and discussion of treatment choices. No major barriers to understanding were identified. The patient expressed understanding and agreement with the above treatment plan. The patient was made aware they should contact our office by phone for worsening of their current condition, the appearance of new symptoms, or with any questions or concerns. Compliance is encouraged with any medications and follow up testing that is ordered. It is a privilege to be allowed the opportunity to participate in? your urological care.? Again, if you have any questions or concerns If you have any questions or concerns please do not hesitate to contact me. The office is [phone]. This note is constructed using voice recognition software. While every effort has been made to ensure accuracy gallery host errors may have been included. Yours sincerely, SLAVA Loyd Coding Level of Care Code Est Pt Level 3 (71325) Diagnoses Hypogonadism in male E29.1 Erectile dysfunction N52.9 Nocturia R35.1 Enlarged prostate N40.0 CPT Codes Post Residual Void - PVR CPT Code: 08818-Hfmv Void Residual by ultrasound ([id number])
== END 2024-02-21 16:18 | disposition home or self-care (01) ==
PROVIDERS: PCP Internal Medicine; Visit Provider Nurse Practitioner Family
DX: E29.1 Testicular hypofunction (principal); N52.9 Male erectile dysfunction, unspecified; R35.1 Nocturia; N40.0 Benign prostatic hyperplasia without lower urinary tract symptoms; Z13.9 Encounter for screening, unspecified
CPT/HCPCS: 99213

== ENCOUNTER → 2024-02-21 15:39 | Outpatient (BNVA) | payer OTHER, SELFPAY | PROVIDERS: PCP Internal Medicine; Visit Provider Nurse Practitioner Family | DX: E29.1 Testicular hypofunction (principal); N52.9 Male erectile dysfunction, unspecified; N40.1 Benign prostatic hyperplasia with lower urinary tract symptoms; R35.1 Nocturia; Z79.899 Other long term (current) drug therapy | CPT/HCPCS: 51798; 81003 ==

== ENCOUNTER 2024-02-23 08:35 | Outpatient (REF) | payer OTHER, SELFPAY ==
[2024-02-23 09:43] LABS: Cholesterol 181 mg/dL (<200); HDL Cholesterol 34 mg/dL (>40); LDL Cholesterol Calculated 98 mg/dL (<100); Triglycerides 246 mg/dL (<150)
[2024-02-24 07:59] LABS: Follicle Stimulating Hormone 5.2 mIU/mL (1.4-12.8); Lutenizing Hormone 3.2 mIU/mL (1.5-9.3); Sex Hormone Binding Globulin 9 nmol/L (22-77)
[2024-02-29 08:33] LABS: Testosterone, Free 27.9 pg/mL (35.0-155.0); Testosterone, Total 106 ng/dL (250-1100)
[2024-03-01 22:53] LABS: Estradiol Ultra Sensitive 21 pg/mL (< OR = 29)
== END 2024-02-23 08:36 | disposition home or self-care (01) ==
LOC: HO.LAB 08:35
PROVIDERS: Absent Provider Nurse Practitioner Family; PCP Internal Medicine; Visit Provider Internal Medicine Cardiovascular Disease
DX: E29.1 Testicular hypofunction (principal); R74.01 Elevation of levels of liver transaminase levels; D64.9 Anemia, unspecified; I10 Essential (primary) hypertension; R10.11 Right upper quadrant pain
CPT/HCPCS: 36415; 80061; 82670; 83001; 83002; 84146; 84270; 84402; 84403

== ENCOUNTER 2024-03-19 12:01 | Outpatient (AMB) | payer OTHER, SELFPAY ==
--- NOTE | 2024-03-19 12:05 | MHC.OFFVIS ---
Intake Visit Reasons: 1m/Testo Intake Note: Patient presents today for tele visit follow up on: Hypogonadism and testosterone labs Total Testosterone: 106 Free Testosterone: 27.9 Urology Medications: Tadalafil Blood thinners: None Geothermal Operations Engineer Required: No Accompanied by: Self / Same As Patient Allergies No Known Allergies [No Known Allergies*] Allergy (Verified 03/19/24 20:51) Medication List - Last Reconciled 03/19/24 by WHITNEY LoydP- albuterol sulfate 90 mcg/actuation 2 puffs inhalation QID PRN amlodipine 10 mg PO DAILY 90 days baclofen 10 mg PO BEDTIME PRN CPAP (CPAP Machine/Device) As directed auto 6- gemfibrozil 600 mg PO BID tadalafil (Cialis) 5 mg PO DAILY 90 days tadalafil (Cialis) 20 mg PO DAILY PRN 30 days testosterone 2 pumps topical DAILY 30 days HPI Comments Details: Tru is a very pleasant 59-year-old male patient of Dr. Mcclain. He has a past medical history of transaminitis, hyperlipidemia, hypertension, obstructive sleep apnea, obesity, and rheumatoid arthritis. He is being followed up on today via telehealth for his hypogonadism and ED. Recent labs reviewed with the patient today as noted and trended below. Testosterone 01/14 118, 03/16 106 Free testosterone 01/14 38.8, 03/16 27.9 PSA 01/14 1.5 Estradiol 03/16 21 FSH 03/16 5.2 LH 03/16 3.2 Prolactin 03/16 9.0 In discussion with the patient today he reports compliance with 5 mg of Cialis daily as well as p.r.n. dosing prior to sexual activity. He does report feeling this has been somewhat helpful in his low libido and erectile dysfunction. We discussed at length potential causes of hypogonadism, low libido, and erectile dysfunction. We discussed further treatment options for hypogonadism as well as risks and benefits of these interventions. He otherwise denies urinary urgency, urinary frequency, incontinence, hematuria, dysuria, foul smelling urine, changes to urinary stream, flank pain, fever, and or chills. Previous workup has included a retroperitoneal ultrasound 01/14 noting bilateral kidneys with no calculi or nephrolithiasis. 4.2 cm right upper pole cyst with diffuse internal echoes is difficult to characterize due to limited visualization. CT scan of 11/12 demonstrates right renal pole cyst. The bladder is well distended and normal. Bladder jets are demonstrated. Pre void bladder volume is approximately 150 mL. Postvoid bladder volume is approximately 50 mL There is mild BPH with prostate measuring 36 mL. He otherwise offers no other issues or concerns. [facility] Medical History Transaminitis Elevated cholesterol HTN (hypertension) LOGAN (obstructive sleep apnea) Morbid obesity Seropositive rheumatoid arthritis Encounter for general adult medical examination without abnormal findings Surgical History Hx of facial fracture repair History of detached retina repair Hx of colonoscopy H/O rectal polypectomy Family History Brother No problems noted. Brother No problems noted. Sister No problems noted. Sister No problems noted. Social History Housing: House Alcohol intake: current Patient Tobacco Use Status: Never used Tobacco e-Cigarette/Vaping Use: Never Used Second Hand Smoke Exposure: No service: No Current occupational status: employed Current occupation: Psychotherapist, [employer] Cognitive needs: No Hearing needs: No Vision needs: Yes Review of Systems Const Reports as per HPI Eyes Reports no additional complaints ENT Reports no additional complaints Card Reports as per HPI Resp Reports as per HPI GI Reports as per HPI Reports as per HPI Musc Reports as per HPI Neuro Reports no additional complaints Psych Reports no additional complaints Endo Reports no additional complaints Curt/Lymph Reports no additional complaints Aller/Immun Reports no additional complaints Physical Exam Const General: cooperative Orientation/consciousness: patient oriented x3 Resp Effort & Inspection: able to speak in complete sentences Neuro General: patient oriented x3 Psych Speech and movement: Clear speech present Attitude: cooperative Thought process: Normal thought process present Thought content: Normal thought content present Insight: Fair insight present (Psych) Judgement: Fair judgement present (Psych) Telehealth Telehealth [facility] Location of provider rendering services: practice address Location of patient: address on file Patient Identification confirmed using: Name, : Yes Patient verbally consented to treatment: Yes Patient verbally consented to billing insurance company: Yes Patient informed of any privacy concerns related to visit: Yes Minutes spent on Phone/Video with Pt.: 22 Assessment & Plan Assessment & Plan (1) Hypogonadism in male: Code(s): E29.1 - Testicular hypofunction Category: Medical (2) Enlarged prostate: Code(s): N40.0 - Benign prostatic hyperplasia without lower urinary tract symptoms Category: Medical (3) Erectile dysfunction: Code(s): N52.9 - Male erectile dysfunction, unspecified Category: Medical Plan Recent labs reviewed with the patient today; as noted above. Continue Cialis 5 mg daily. Continue as needed Cialis prior to sexual activity. Start testosterone as discussed and prescribed. Discussed at length potential causes of hypogonadism, ED, low libido, and nocturia; discussed lifestyle modifications to assist with these urological issues; we discussed further treatment options of these issues. Discussed, educated, and stressed lifestyle modifications to assist with hypogonadism, ED, low libido, and nocturia. Will obtain PSA, CBC, and testosterone total and free in 3 months. Follow-up in 3 months with labs to be completed prior; or sooner with any issues, concerns, and or questions. Orders: Orders Testosterone, Free/Total 3 Months E29.1 - Testicular hypofunction Complete Blood Count no Diff 3 Months E29.1 - Testicular hypofunction Prostate Specific Antigen 3 Months E29.1 - Testicular hypofunction Medications: New testosterone apply 2 pumps over max area - alternate shoulders on alternate days 2 pumps topical DAILY 30 days 75 grams 1RF E29.1 - Testicular hypofunction, R79.89 - Other specified abnormal findings of blood chemistry Patient Instructions: The patient had an opportunity to ask questions regarding the treatment plan. All questions were answered. Physical exam, labs, and imaging were discussed and reviewed in detail. As well as risks, benefits, and discussion of treatment choices. No major barriers to understanding were identified. The patient expressed understanding and agreement with the above treatment plan. The patient was made aware they should contact our office by phone for worsening of their current condition, the appearance of new symptoms, or with any questions or concerns. Compliance is encouraged with any medications and follow up testing that is ordered. It is a privilege to be allowed the opportunity to participate in? your urological care.? Again, if you have any questions or concerns If you have any questions or concerns please do not hesitate to contact me. The office is [phone]. This note is constructed using voice recognition software. While every effort has been made to ensure accuracy business analysis professional errors may have been included. Yours sincerely, ESSENCE Loyd-JORDON Coding Level of Care Code Tele Est Pt Level 4 (96598) Diagnoses Hypogonadism in male E29.1 Enlarged prostate N40.0 Erectile dysfunction N52.9
== END 2024-03-19 14:20 | disposition home or self-care (01) ==
LOC: HO.HUSH 12:01
PROVIDERS: PCP Internal Medicine; Visit Provider Nurse Practitioner Family
DX: E29.1 Testicular hypofunction (principal); N40.0 Benign prostatic hyperplasia without lower urinary tract symptoms; N52.9 Male erectile dysfunction, unspecified
CPT/HCPCS: 99214

== ENCOUNTER → 2024-03-19 12:01 | Outpatient (BNVA) | payer OTHER, SELFPAY | PROVIDERS: PCP Internal Medicine; Visit Provider Nurse Practitioner Family ==

== ENCOUNTER 2024-05-06 09:36 | Outpatient (REF) | payer OTHER, SELFPAY ==
--- NOTE | ~2024-05-06 | XR_ITS ---
EXAMINATION: X-ray bilateral knees CLINICAL INFORMATION: Knee pain COMPARISON: None TECHNIQUE: Left knee 3 views. Right knee 2 views. FINDINGS: Left knee: No acute fracture or dislocation. Mild tricompartment arthritis. Tibial spine spurring. No significant effusion. Ossification along the posterior cortex of the proximal tibial metadiaphysis, could reflect sequela of chronic traction changes.. Right knee: Mild tricompartment arthritis. No acute fracture or dislocation. No significant effusion. Ossification along the posterior cortex of the proximal tibial metadiaphysis, could reflect sequela of chronic traction changes. XR/XR knee LT 2V IMPRESSION: Left knee: Mild Tricompartment arthritis. Ossification along the posterior proximal tibial cortex, could reflect sequela of chronic traction changes. Right knee: Mild Tricompartment arthritis. Ossification along the posterior proximal tibial cortex, could represent sequela of chronic traction changes. Clinically correlate. Further evaluation, follow-up imaging as clinically indicated. Study is assigned for dictation on May 10, 2024 Electronically signed by: Srinath Cavanaugh MD 05/10/2024 12:08 PM EDT
--- NOTE | ~2024-05-06 | XR_ITS ---
EXAMINATION: X-ray bilateral knees CLINICAL INFORMATION: Knee pain COMPARISON: None TECHNIQUE: Left knee 3 views. Right knee 2 views. FINDINGS: Left knee: No acute fracture or dislocation. Mild tricompartment arthritis. Tibial spine spurring. No significant effusion. Ossification along the posterior cortex of the proximal tibial metadiaphysis, could reflect sequela of chronic traction changes.. Right knee: Mild tricompartment arthritis. No acute fracture or dislocation. No significant effusion. Ossification along the posterior cortex of the proximal tibial metadiaphysis, could reflect sequela of chronic traction changes. XR/XR knee RT 2V IMPRESSION: Left knee: Mild Tricompartment arthritis. Ossification along the posterior proximal tibial cortex, could reflect sequela of chronic traction changes. Right knee: Mild Tricompartment arthritis. Ossification along the posterior proximal tibial cortex, could represent sequela of chronic traction changes. Clinically correlate. Further evaluation, follow-up imaging as clinically indicated. Study is assigned for dictation on May 10, 2024 Electronically signed by: Srinath Cavanaugh MD 05/10/2024 12:08 PM EDT
== END 2024-05-06 09:37 | disposition home or self-care (01) ==
LOC: HO.XRAY 09:36
PROVIDERS: PCP Internal Medicine; Visit Provider Internal Medicine
DX: M25.562 Pain in left knee (principal); M25.561 Pain in right knee
CPT/HCPCS: 73560; 96127

== ENCOUNTER 2024-05-06 09:36 | Outpatient (AMB) | payer OTHER, SELFPAY ==
[2024-05-06 09:43] VITALS: BP 132/68; PULSE 65; O2SAT 95; BMI 45.4
--- NOTE | 2024-05-06 09:43 | A.OFFPC_ITS ---
Vital Signs 05/06/24 09:43 Height 5 ft 5 in Weight 273 lb BMI 45.4 BP 132/68 Blood Pressure Location Lt brachial Position Sitting Pulse 65 Pulse Source Pulse Oximeter Pulse Oximetry (%) 95 Oxygen Delivery Method Room Air Intake Visit Reasons: Whitney Diet Aide Required: No Accompanied by: Self / Same As Patient Allergies No Known Allergies [No Known Allergies*] Allergy (Verified 05/06/24 09:44) Medication List - Last Reconciled 05/06/24 by Eduardo Mcclain MD albuterol sulfate 90 mcg/actuation 2 puffs inhalation QID PRN amlodipine 10 mg PO DAILY 90 days baclofen 10 mg PO BEDTIME PRN CPAP (CPAP Machine/Device) As directed auto 6-20 gemfibrozil 600 mg PO BID tadalafil (Cialis) 5 mg PO DAILY 90 days tadalafil (Cialis) 20 mg PO DAILY PRN 30 days testosterone 2 pumps topical DAILY 30 days Tobacco use date assessed: 08/01/23 Dental Screening Dental Screen Date: 08/01/23 HPI PainOnKnee HPI Details bilat knee pain and swelling for a few months; no injury [facility] Medical History Transaminitis Elevated cholesterol HTN (hypertension) LOGAN (obstructive sleep apnea) Morbid obesity Seropositive rheumatoid arthritis Encounter for general adult medical examination without abnormal findings Surgical History Hx of facial fracture repair History of detached retina repair Hx of colonoscopy H/O rectal polypectomy Family History Brother No problems noted. Brother No problems noted. Sister No problems noted. Sister No problems noted. Social History Housing: House Alcohol intake: current Patient Tobacco Use Status: Never used Tobacco Tobacco use type: Cigarette e-Cigarette/Vaping Use: Never Used Second Hand Smoke Exposure: No service: No Current occupational status: employed Current occupation: Psychotherapist, [employer] Cognitive needs: No Hearing needs: No Vision needs: Yes Questionnaire PHQ-9 Over the last 2 weeks, how often have you been bothered by any of the following problems? 1. Little interest or pleasure in doing things: not at all 2. Feeling down, depressed, or hopeless: not at all 3. Trouble falling or staying asleep, or sleeping too much: not at all 4. Feeling tired or having little energy: not at all 5. Poor appetite or overeating: not at all 6. Feeling bad about yourself - or that you are a failure or have let yourself or your family down: not at all 7. Trouble concentrating on things, such as reading the newspaper or watching television: not at all 8. Moving or speaking so slowly that other people could have noticed. Or the opposite - being so fidgety or restless that you have been moving around a lot more than usual: not at all 9. Thoughts that you would be better off or of hurting yourself in some way: not at all Total score: 0 Depression Screening Interpretation: Negative Depression Screening Done: Yes Source: Developed by Drs. Benoit Barroso, Clarita Edmonds, Jt Melendez and colleagues, with an educational mary jane from [employer]. Thrive Questionnaire Date Thrive assessed: 08/01/23 Are you currently unemployed and looking for a job?: No AUDIT C Alcohol Use Questionnaire (AUDIT-C) 3. How often do you have six or more drinks on one occasion?: Never Total Score: 0 CHRISTY-7 AMB Questionnaire CHRISTY-7 Date CHRISTY - 7 assessed: 08/01/23 Source: Developed by Drs. Benoit Barroso, Clarita Edmonds, Jt Melendez and colleagues, with an educational mary jane from [employer]. Review of Systems Const Denies chills, Denies headache(s) and Denies weight loss ENT Denies headache(s) Card Denies chest pain, Denies syncope, Denies irregular heart rhythm and Denies dyspnea Resp Denies chest congestion, Denies cough and Denies dyspnea GI Denies abdominal pain, Denies change in stool character, Denies nausea and Denies vomiting Musc Denies deformity and Denies joint swelling Neuro Denies syncope and Denies headache(s) Physical exam (Primary Care) Vital Signs: Last Vital Signs Pulse 65 05/06/24 09:43 BP 132/68 05/06/24 09:43 Pulse Ox 95 05/06/24 09:43 Oxygen Delivery Method Room Air 05/06/24 09:43 BMI result Body Mass Index 45.4 Tobacco/Smoking Status: Tobacco use Status Tobacco use date assessed 08/01/23 05/06/24 09:47 Patient Tobacco Use Status Never used Tobacco 05/06/24 09:47 Tobacco use type Cigarette 05/06/24 09:47 e-Cigarette/Vaping Use Never Used 05/06/24 09:47 PHQ-9: PHQ-9 Score PHQ-9: Total score 0 05/06/24 09:47 Depression Screening Interpretation: Negative Thrive Assessment: Date of Thrive Assessment Date Thrive assessed 08/01/23 05/06/24 09:47 Const General: cooperative, comfortable, no acute distress and alert Neck Neck: Yes no lymphadenopathy Thyroid: Thyroid normal Resp Effort & Inspection: normal respiratory effort Auscultation: clear to auscultation bilaterally Percussion: percussion normal Cardio Jugular venous distension: no JVD Palpation: normal PMI Rate: regular rate Rhythm: regular rhythm Heart sounds: S1 normal heart sound present and S2 normal heart sound present GI Inspection: Yes normal to inspection Palpation (GI): No hepatosplenomegaly present Skin General skin exam: no rashes or lesions noted Extrem General: Yes no clubbing, cyanosis or edema Coding Level of Care Code Est Pt Level 3 (65526) Diagnoses Knee pain M25.569 Additional Codes PHQ-9 - 66113 - PHQ-9 Billing: ([id number]) Assessment & Plan Assessment & Plan (1) Knee pain: Code(s): M25.569 - Pain in unspecified knee Plan: xr Orders: Orders XR knee RT 2V Today M25.569 - Pain in unspecified knee XR knee LT 2V Today M25.569 - Pain in unspecified knee
== END 2024-05-06 10:00 | disposition home or self-care (01) ==
PROVIDERS: PCP Internal Medicine; Visit Provider Internal Medicine
DX: M25.569 Pain in unspecified knee (principal)

== ENCOUNTER 2024-06-15 07:38 | Outpatient (REF) | payer OTHER, SELFPAY ==
[2024-06-15 08:24] LABS: Hematocrit 41.8 % (42.0-52.0); Hemoglobin 14.7 g/dl (14.0-18.0); Mean Corpuscular HGB Conc 35.2 g/dl (31.0-36.0); Mean Corpuscular Hemoglobin 30.1 pg (27.0-33.0); Mean Corpuscular Volume 85.5 fL (80.0-98.0); Mean Platelet Volume 11.6 fL (9.4-12.4); Platelet Count 248 X10*3/uL (160-400); Red Blood Count 4.89 X10*6/uL (4.60-5.80); Red Cell Distribution Width 12.8 % (11.0-16.0); White Blood Count 9.3 X10*3/uL (4.8-10.8)
[2024-06-22 18:42] LABS: Testosterone, Free 88.3 pg/mL (35.0-155.0); Testosterone, Total 320 ng/dL (250-1100)
== END 2024-06-15 07:39 | disposition home or self-care (01) ==
LOC: HO.LAB 07:38
PROVIDERS: PCP Internal Medicine; Visit Provider Nurse Practitioner Family
DX: E29.1 Testicular hypofunction (principal); Z12.5 Encounter for screening for malignant neoplasm of prostate
CPT/HCPCS: 36415; 84153; 84402; 84403; 85027

== ENCOUNTER 2024-07-09 12:55 | Outpatient (AMB) | payer OTHER, SELFPAY ==
--- NOTE | 2024-07-09 12:58 | A.OFFVIS_ITS ---
Vital Signs 07/09/24 12:59 Height 5 ft 5 in Weight 273 lb BMI 45.4 Intake Visit Reasons: Bilateral knee pain Intake Note: Tru is a 59 year old male who presents with complaints of progressively worsening bilateral knee pains. He describes his pains as sharp in nature. His pains have gotten worse over the last few years in spite of continued non operative treatments. He has had cortisone injections in the past which gave him minimal relief. He has failed the last 3 months of conservative treatment which has included topical creams, Tylenol, anti-inflammatory medicines and physical therapy exercises. At this point his knee pains are interfering with his activities of daily living, his ability to sleep well through the night and his ability to play tennis. The patient wishes to hold off on surgery if at all possible. Allergies No Known Allergies [No Known Allergies*] Allergy (Verified 07/09/24 13:00) [facility] Medical History Transaminitis Elevated cholesterol HTN (hypertension) LOGAN (obstructive sleep apnea) Morbid obesity Seropositive rheumatoid arthritis Encounter for general adult medical examination without abnormal findings Surgical History Hx of facial fracture repair History of detached retina repair Hx of colonoscopy H/O rectal polypectomy Family History Brother No problems noted. Brother No problems noted. Sister No problems noted. Sister No problems noted. Social History Housing: House Alcohol intake: current Patient Tobacco Use Status: Never used Tobacco Tobacco use type: Cigarette e-Cigarette/Vaping Use: Never Used Second Hand Smoke Exposure: No service: No Current occupational status: employed Current occupation: Psychotherapist, [employer] Cognitive needs: No Hearing needs: No Vision needs: Yes Physical Exam Vital Signs: BMI result Body Mass Index 45.4 Const Other: Well-nourished well-developed very friendly male awake alert and oriented x3 in no acute distress Extrem Other: Bilateral lower extremity examination shows good capillary refill, no skin lesions noted, normal sensation light touch bilateral knee examination shows minimal effusions, palpable crepitus with range of motion, pain with range of motion, no instability, range of motion from -3 degrees to 115 degrees Results Reviewed Results Reviewed: X-rays of the patient's bilateral knee show joint space narrowing, subchondral sclerosis, no acute bony abnormalities Assessment & Plan Assessment & Plan (1) Pain in both knees: Code(s): M25.561 - Pain in right knee; M25.562 - Pain in left knee (2) Osteoarthritis of left knee: Code(s): M17.12 - Unilateral primary osteoarthritis, left knee Category: Medical (3) Osteoarthritis of right knee: Code(s): M17.11 - Unilateral primary osteoarthritis, right knee Category: Medical Plan Mr. Chavez presents with bilateral knee pains due to osteoarthritis. I had a lengthy discussion with the patient regarding the treatment options. He wishes to hold off on surgery for as long as possible. I agree with this plan. I will see whether or not the patient's insurance company will cover a viscosupplementation injection for both of his knees. I will see him back once the injections are available. Feel free to call me at any time should questions regarding his orthopedic management arise. Thank you very much for asking me to see this very friendly gentleman. I spent 22 minutes in reviewing the patient's records and imaging studies, seeing the patient and documenting in the medical record. Coding Level of Care Code Est Pt Level 3 (44704) Complex EM visit Add On G2211 Diagnoses Pain in both knees M25.561; M25.562 Osteoarthritis of left knee M17.12 Osteoarthritis of right knee M17.11
[2024-07-09 12:59] VITALS: BMI 45.4
== END 2024-07-09 13:15 | disposition home or self-care (01) ==
PROVIDERS: PCP Internal Medicine; Visit Provider Orthopaedic Surgery
DX: M17.0 Bilateral primary osteoarthritis of knee (principal)
CPT/HCPCS: 99213

== ENCOUNTER 2024-08-28 08:15 | Outpatient (AMB) | payer OTHER, SELFPAY ==
--- NOTE | 2024-08-28 08:19 | MHC.OFFVIS ---
Vital Signs 08/28/24 08:20 Height 5 ft 5 in Weight 273 lb BMI 45.4 Intake Visit Reasons: Bilateral knee pains Intake Note: Tru is a 59 year old male who presents with complaints of progressively worsening bilateral knee pains. He describes his pains as sharp in nature. His pains have gotten worse over the last few years in spite of continued non operative treatments. He has failed the last 3 months of conservative treatment which has included topical creams, Tylenol, anti-inflammatory medicines and physical therapy exercises. At this point his knee pains are interfering with his activities of daily living, his ability to sleep well through the night and his ability to play tennis. The patient wishes to hold off on surgery if at all possible. The patient was interested in trying viscosupplementation injections. The injections were denied by his insurance company because he has not yet had Allergies No Known Allergies [No Known Allergies*] Allergy (Verified 08/28/24 08:20) Medication List - Last Reconciled 08/28/24 by Van Humphrey MD albuterol sulfate 90 mcg/actuation 2 puffs inhalation QID PRN amlodipine 10 mg PO DAILY 90 days CPAP (CPAP Machine/Device) As directed auto 6-20 gemfibrozil 600 mg PO BID tadalafil (Cialis) 5 mg PO DAILY 90 days tadalafil (Cialis) 20 mg PO DAILY PRN 30 days testosterone 2 pumps topical DAILY 30 days PFS Medical History Transaminitis Elevated cholesterol HTN (hypertension) LOGAN (obstructive sleep apnea) Morbid obesity Seropositive rheumatoid arthritis Encounter for general adult medical examination without abnormal findings Surgical History Hx of facial fracture repair History of detached retina repair Hx of colonoscopy H/O rectal polypectomy Family History Brother No problems noted. Brother No problems noted. Sister No problems noted. Sister No problems noted. Social History Housing: House Alcohol intake: current Patient Tobacco Use Status: Never used Tobacco Tobacco use type: Cigarette e-Cigarette/Vaping Use: Never Used Second Hand Smoke Exposure: No service: No Current occupational status: employed Current occupation: Psychotherapist, [employer] Cognitive needs: No Hearing needs: No Vision needs: Yes Physical Exam Vital Signs: BMI result Body Mass Index 45.4 Const Other: Well-nourished well-developed very friendly male awake alert and oriented x3 in no acute distress Extrem Other: Bilateral knee examination shows minimal effusions, palpable crepitus with range of motion, pain with range of motion, no instability Office Procedures AMB Joint Injection/Aspiration Joint Injection/Aspiration Primary Site: left knee Prep: site was prepped using aseptic technique Injected: 40 mg of, DepoMedrol and 1% plain lidocaine Procedure: The patient tolerated the procedure well Coding - Large joint Procedure code (CPT) selection complete AMB Joint Injection/Aspiration Joint Injection/Aspiration Primary Site: right knee Prep: site was prepped using aseptic technique Injected: 40 mg of, DepoMedrol and 1% plain lidocaine Procedure: The patient tolerated the procedure well Coding - Large joint Procedure code (CPT) selection complete Results Reviewed Results Reviewed: X-rays of the patient's bilateral knees taken previously show joint space narrowing, subchondral sclerosis, no acute bony abnormalities Assessment & Plan Assessment & Plan (1) Osteoarthritis of left knee: Code(s): M17.12 - Unilateral primary osteoarthritis, left knee Category: Medical (2) Osteoarthritis of right knee: Code(s): M17.11 - Unilateral primary osteoarthritis, right knee Category: Medical Plan Mr. Chavez presents with bilateral knee pains due to osteoarthritis. The risks and benefits of bilateral knee cortisone injections were discussed at length with the patient. The patient wished to proceed. He tolerated the injections well. He will continue with his home exercise program. He will contact me prior to his follow-up appointment in 3 months should any questions or concerns arise. Feel free to call me at any time should questions regarding his orthopedic management arise. I spent 21 minutes in reviewing the patient's records and imaging studies, seeing the patient and documenting in the medical record. Orders: Orders AMB Joint Injection/Aspiration Today M17.12 - Unilateral primary osteoarthritis, left knee AMB Joint Injection/Aspiration Today M17.11 - Unilateral primary osteoarthritis, right knee Coding Level of Care Code Est Pt Level 3 (60955) Complex EM visit Add On G2211 Diagnoses Osteoarthritis of left knee M17.12 Osteoarthritis of right knee M17.11 CPT Codes Coding - Large joint: 66046 - Large joint ([id number]) Coding - 91084 Large joint: 25119 - Large joint ([id number])
[2024-08-28 08:20] VITALS: BMI 45.4
== END 2024-08-28 08:44 | disposition home or self-care (01) ==
PROVIDERS: PCP Internal Medicine; Visit Provider Orthopaedic Surgery
DX: M17.0 Bilateral primary osteoarthritis of knee (principal)
CPT/HCPCS: 20610; 99213

== ENCOUNTER → 2024-08-28 08:15 | Outpatient (BNVA) | payer OTHER, SELFPAY | PROVIDERS: PCP Internal Medicine; Visit Provider Orthopaedic Surgery | DX: M17.0 Bilateral primary osteoarthritis of knee (principal) | CPT/HCPCS: 20610; J1010; J2003 ==

== ENCOUNTER 2024-09-30 07:38 | Outpatient (AMB) | payer OTHER, SELFPAY ==
--- NOTE | 2024-09-30 07:38 | A.OFFVIS_ITS ---
Intake Visit Reasons: follow up/labs(set) Intake Note: Patient presents today for tele visit follow up on: Hypogonadism and testosterone labs Total Testosterone: 320 Free Testosterone: 88.3 PSA: 1.30 Urology Medications: Tadalafil Blood thinners: None Information Coordinator Required: No Accompanied by: Self / Same As Patient Allergies No Known Allergies [No Known Allergies*] Allergy (Verified 09/30/24 08:21) Medication List - Last Reconciled 09/30/24 by SLAVA Loyd albuterol sulfate 90 mcg/actuation 2 puffs inhalation QID PRN amlodipine 10 mg PO DAILY 90 days CPAP (CPAP Machine/Device) As directed auto 6-20 gemfibrozil 600 mg PO BID tadalafil (Cialis) 5 mg PO DAILY 90 days tadalafil (Cialis) 20 mg PO DAILY PRN 30 days testosterone 2 pumps topical DAILY 30 days HPI Comments Details: Tru is a very pleasant 59-year-old male patient of Dr. Mcclain. He has a past medical history of transaminitis, hyperlipidemia, hypertension, obstructive sleep apnea, obesity, and rheumatoid arthritis. He is being followed up on today via telehealth for his hypogonadism and ED. Recent labs reviewed with the patient today as noted and trended below. Testosterone 01/14 118, 03/16 106, 06/16 320 Free testosterone 01/14 38.8, 03/16 27.9, 06/16 88.3 PSA 01/14 1.5, 06/16 1.3 Estradiol 03/16 21 FSH 03/16 5.2 LH 03/16 3.2 Prolactin 03/16 9.0 In discussion with the patient today he reports compliance with 5 mg of Cialis daily as well as p.r.n. dosing prior to sexual activity. He discusses feeling improvement in libido, ED, and overall mood with compliance in testosterone as prescribed as well as daily dose of Cialis. He otherwise denies any bothersome urinary issues or concerns. He denies urinary urgency, urinary frequency, incontinence, hematuria, dysuria, foul smelling urine, changes to urinary stream, flank pain, fever, and or chills. Previous workup has included a retroperitoneal ultrasound 01/14 noting bilateral kidneys with no calculi or nephrolithiasis. 4.2 cm right upper pole cyst with diffuse internal echoes is difficult to characterize due to limited visualization. CT scan of 11/12 demonstrates right renal pole cyst. The bladder is well distended and normal. Bladder jets are demonstrated. Pre void bladder volume is approximately 150 mL. Postvoid bladder volume is approximately 50 mL There is mild BPH with prostate measuring 36 mL. He otherwise offers no other issues or concerns. [facility] Medical History Transaminitis Elevated cholesterol HTN (hypertension) LOGAN (obstructive sleep apnea) Morbid obesity Seropositive rheumatoid arthritis Encounter for general adult medical examination without abnormal findings Surgical History Hx of facial fracture repair History of detached retina repair Hx of colonoscopy H/O rectal polypectomy Family History Brother No problems noted. Brother No problems noted. Sister No problems noted. Sister No problems noted. Social History Housing: House Alcohol intake: current Patient Tobacco Use Status: Never used Tobacco Tobacco use type: Cigarette e-Cigarette/Vaping Use: Never Used Second Hand Smoke Exposure: No service: No Current occupational status: employed Current occupation: Psychotherapist, [employer] Cognitive needs: No Hearing needs: No Vision needs: Yes Review of Systems Const Reports as per HPI Eyes Reports no additional complaints ENT Reports no additional complaints Card Reports as per HPI Resp Reports as per HPI GI Reports as per HPI Reports as per HPI Musc Reports as per HPI Neuro Reports no additional complaints Psych Reports no additional complaints Endo Reports no additional complaints Curt/Lymph Reports no additional complaints Aller/Immun Reports no additional complaints Physical Exam Const General: cooperative Orientation/consciousness: patient oriented x3 Resp Effort & Inspection: able to speak in complete sentences Neuro General: patient oriented x3 Psych Speech and movement: Clear speech present Attitude: cooperative Thought process: Normal thought process present Thought content: Normal thought content present Insight: Fair insight present (Psych) Judgement: Fair judgement present (Psych) Telehealth Telehealth Telehealth Platform: Telephone Location of provider rendering services: practice address Location of patient: address on file Patient Identification confirmed using: Name, : Yes Telehealth method: voice only Patient verbally consented to treatment: Yes Patient verbally consented to billing insurance company: Yes Patient informed of any privacy concerns related to visit: Yes Minutes spent on Phone/Video with Pt.: 15 Assessment & Plan Assessment & Plan (1) Hypogonadism in male: Code(s): E29.1 - Testicular hypofunction Category: Medical Plan Recent labs reviewed with the patient today; as noted above. He currently denies any bothersome urinary issues or concerns. Reports be happy with current voiding parameters. Will continue testosterone, and Cialis as prescribed; refills provided. We discussed lifestyle modifications to assist with hypogonadism as well as ED. Will obtain CBC, PSA, and testosterone free and total in 6 months. Follow-up in 6 months with labs to be completed prior; or sooner with any issues, concerns, and or questions. Orders: Orders Complete Blood Count no Diff 6 Months E29.1 - Testicular hypofunction PSA,Total (Free>4and<10) 6 Months E29.1 - Testicular hypofunction Testosterone, Free/Total 6 Months E29.1 - Testicular hypofunction Medications: Refilled testosterone apply 2 pumps over max area - alternate shoulders on alternate days 2 pumps topical DAILY 75 grams 5RF 30 days E29.1 - Testicular hypofunction, R79.89 - Other specified abnormal findings of blood chemistry tadalafil (Cialis) [id number] [facility] [id number] Member [id number] 5 mg PO DAILY 90 tabs 1RF 90 days Patient Instructions: The patient had an opportunity to ask questions regarding the treatment plan. All questions were answered. Physical exam, labs, and imaging were discussed and reviewed in detail. As well as risks, benefits, and discussion of treatment choices. No major barriers to understanding were identified. The patient expressed understanding and agreement with the above treatment plan. The patient was made aware they should contact our office by phone for worsening of their current condition, the appearance of new symptoms, or with any questions or concerns. Compliance is encouraged with any medications and follow up testing that is ordered. It is a privilege to be allowed the opportunity to participate in? your urological care.? Again, if you have any questions or concerns If you have any questions or concerns please do not hesitate to contact me. The office is [phone]. This note is constructed using voice recognition software. While every effort has been made to ensure accuracy primary grade teacher errors may have been included. Yours sincerely, SLAVA Loyd Coding Level of Care Code Tele Est Pt Level 3 (51841) Diagnoses Hypogonadism in male E29.1
== END 2024-09-30 09:06 | disposition home or self-care (01) ==
LOC: HO.HUSH 07:38
PROVIDERS: PCP Internal Medicine; Visit Provider Nurse Practitioner Family
DX: E29.1 Testicular hypofunction (principal)
CPT/HCPCS: 99213

== ENCOUNTER 2024-11-04 14:04 | Outpatient (REF) | payer OTHER, SELFPAY ==
[2024-11-04 14:18] LABS: MANUAL DIFF FLAG NO
[2024-11-04 14:58] LABS: Basophils Absolute Auto 0.1 X10*3/uL (0.0-0.2); Basophils Percent Auto 0.6 % (0-2); Eosinophils Absolute Auto 0.2 X10*3/uL (0.0-0.4); Eosinophils Percent Auto 1.8 % (0-4); Hematocrit 39.8 % (42.0-52.0); Hemoglobin 13.9 g/dl (14.0-18.0); Imm Gran Abs Auto 0.08 X10*3/uL (0.00-0.03); Imm Gran Pct Auto 0.8 % (0.0-0.4); Lymphocytes Absolute Auto 1.7 X10*3/uL (1.2-4.9); Lymphocytes Percent Auto 18.2 % (20-40); Mean Corpuscular HGB Conc 34.9 g/dl (31.0-36.0); Mean Corpuscular Volume 85.8 fL (80.0-98.0); Mean Platelet Volume 12.2 fL (9.4-12.4); Monocytes Absolute Auto 0.8 X10*3/uL (0.1-1.2); Monocytes Percent Auto 7.8 % (2-11); Neutrophils Absolute Auto 6.8 x10*3/uL (2.0-8.3); Neutrophils Percent Auto 70.8 % (45-73); Platelet Count 262 X10*3/uL (160-400); Red Blood Count 4.64 X10*6/uL (4.60-5.80); White Blood Count 9.6 X10*3/uL (4.8-10.8)
[2024-11-04 16:01] LABS: Folate 6.1 ng/mL (> or = 4.0); Vitamin B12 267 pg/mL (200-900)
[2024-11-04 16:49] LABS: Alanine Aminotransferase 35 U/L (0-40); Alkaline Phosphatase 110 U/L (39-117); Anion Gap 11 (12-20); Aspartate Amino Transferase 29 U/L (5-37); Bilirubin Total 0.4 mg/dL (0.0-1.0); Blood Urea Nitrogen 15 mg/dL (9-16); Calcium 9.2 mg/dL (8.4-10.2); Carbon Dioxide 25 mmol/L (22-29); Chloride 107 mmol/L (96-108); Cholesterol 191 mg/dL (<200); Estimated Glomerular Filt Rate > 60; Glucose Random 201 mg/dL (60-115); HDL Cholesterol 34 mg/dL (>40); Potassium 3.7 mmol/L (3.3-5.1); Sodium 139 mmol/L (135-145); Total Protein 7.1 g/dL (6.5-8.0); Triglycerides 563 mg/dL (<150)
[2024-11-04 16:56] LABS: Free T4 (Free Thyroxine) 0.89 ng/dL (0.71-1.85); TSH reflex Free T4 1.46 uIU/mL (0.32-4.0); Vitamin D 25-OH Total 9.1 ng/mL (>30)
[2024-11-13 00:58] LABS: PSA, Ultra Sensitive 1.51 ng/mL
== END 2024-11-04 14:05 | disposition home or self-care (01) ==
LOC: HO.LAB 14:04
DX: Z00.00 Encounter for general adult medical examination without abnormal findings (principal); Z13.220 Encounter for screening for lipoid disorders; Z12.5 Encounter for screening for malignant neoplasm of prostate
CPT/HCPCS: 36415; 80053; 80061; 82306; 82607; 82746; 84153; 84439; 84443; 85025

== ENCOUNTER 2024-11-08 15:52 | Outpatient (AMB) | payer OTHER, SELFPAY ==
[2024-11-08 16:03] VITALS: BP 148/78; PULSE 66; RESP 16; TEMP 36.3; O2SAT 95; BMI 44.0
--- NOTE | 2024-11-08 16:03 | MHC.PC.OV ---
Vital Signs 11/08/24 16:03 11/08/24 16:39 Height 5 ft 5 in Weight 264 lb 3.2 oz BMI 44.0 BP 148/78 H 162/90 H Blood Pressure Location Lt brachial Lt brachial Position Sitting Sitting Respiration 16 Pulse 66 Pulse Source Pulse Oximeter Temp 97.3 F Temp Source Temporal Artery Scan Pulse Oximetry (%) 95 Oxygen Delivery Method Room Air Intake Visit Reasons: physical and foster form to be completed Dealer Development Manager Required: No Accompanied by: Self / Same As Patient Allergies No Known Allergies [No Known Allergies*] Allergy (Verified 11/08/24 16:11) Medication List - Last Reconciled 11/08/24 by Yvette Silverman PA-C albuterol sulfate 90 mcg/actuation 2 puffs inhalation QID PRN amlodipine 10 mg PO DAILY 90 days CPAP (CPAP Machine/Device) As directed auto 6-20 gemfibrozil 600 mg PO BID tadalafil (Cialis) 20 mg PO DAILY PRN 30 days tadalafil (Cialis) 5 mg PO DAILY 90 days testosterone 2 pumps topical DAILY 30 days Tobacco use date assessed: 11/08/24 Dental Screening Dental Screen Date: 11/08/24 Did you have a dental visit in the last 12 months?: No Did you have a dental problem in the last 6 months where you did not have access to dental care?: No Was dental information given to patient?: No HPI physical and foster form to be completed HPI Details 59-year-old male with past medical history of morbid obesity, rheumatoid arthritis, hypertension hypercholesterolemia, obstructive sleep apnea on CPAP last seen 04/2024 coming in for annual exam.?In review of the notes, patient was seen by Urology 09/30/2024 continue on testosterone and Cialis plan to obtain blood work and follow up in 6 months.?Patient was seen by Orthopedics 08/28/2024 injection bilateral knees follow up in 3 months. Presenting for an annual wellness visit and to complete physical exam paperwork necessary for foster parenting. Continues use of CPAP for 5-6 hours per night with additional sleep in a recliner due to discomfort when lying down for prolonged periods. Patient has no acute concerns today. Colonoscopy: Completed in 2016 repeat in 10 years. Vaccinations: Patient is due for his tetanus vaccine today [facility] Medical History Transaminitis Elevated cholesterol HTN (hypertension) LOGAN (obstructive sleep apnea) Morbid obesity Seropositive rheumatoid arthritis Encounter for general adult medical examination without abnormal findings Surgical History H/O eye surgery Hx of facial fracture repair History of detached retina repair Hx of colonoscopy H/O rectal polypectomy Family History Brother No problems noted. Brother No problems noted. Sister No problems noted. Sister No problems noted. Social History Housing: House Alcohol intake: current Patient Tobacco Use Status: Never used Tobacco Tobacco use type: Cigarette e-Cigarette/Vaping Use: Never Used Second Hand Smoke Exposure: No service: No Current occupational status: employed Current occupation: Psychotherapist, [employer] Cognitive needs: No Hearing needs: No Vision needs: Yes (Glasses) Questionnaire PHQ-9 Over the last 2 weeks, how often have you been bothered by any of the following problems? 1. Little interest or pleasure in doing things: not at all 2. Feeling down, depressed, or hopeless: not at all 3. Trouble falling or staying asleep, or sleeping too much: not at all 4. Feeling tired or having little energy: several days 5. Poor appetite or overeating: not at all 6. Feeling bad about yourself - or that you are a failure or have let yourself or your family down: not at all 7. Trouble concentrating on things, such as reading the newspaper or watching television: not at all 8. Moving or speaking so slowly that other people could have noticed. Or the opposite - being so fidgety or restless that you have been moving around a lot more than usual: not at all 9. Thoughts that you would be better off or of hurting yourself in some way: not at all Total score: 1 Depression Screening Interpretation: Negative Depression Screening Done: Yes 74110 - PHQ-9 Billing: Yes Source: Developed by Drs. Benoit Barroso, Clarita Edmonds, Jt Melendez and colleagues, with an educational mary jane from [employer]. Thrive Questionnaire Date Thrive assessed: 11/08/24 I am a: Patient What is your living situation today?: I have a steady place to live Within the past 12 months, did the food you bought not last and you didn't have the money to get more?: Never true Within the past 12 months, did you worry whether your food would run out before you got money to buy more?: Never true Do you have trouble paying for medicines?: No Do you have trouble getting transportation to medical appointments?: No Do you have trouble paying your heating and electricity bill?: No Do you have trouble taking care of your child, family member or friend?: No Do you have trouble with day-to-day activities such as bathing, preparing meals, shopping, managing finances, etc.?: No Are you currently unemployed and looking for a job?: No Are you interested in more education?: Yes Please select the resources that you would like help with: None Currently or been in a relationship where the following occur: No concerns reported THRIVE Score: 0 AUDIT C Alcohol Use Questionnaire (AUDIT-C) 1. How often do you have a drink containing alcohol?: Monthly or less 2. How many drinks containing alcohol do you have on a typical day when you are drinking?: 1 or 2 3. How often do you have six or more drinks on one occasion?: Never Total Score: 1 Score Reviewed/Action Taken: No CHRISTY-7 AMB Questionnaire CHRISTY-7 Date CHRISTY - 7 assessed: 11/08/24 Feeling nervous, anxious, or on edge: 0 = Not at all Not being able to stop or control worryin = Not at all Worrying too much about different things: 0 = Not at all Trouble relaxin = Not at all Being so restless that it is hard to sit still: 0 = Not at all Becoming easily annoyed or irritable: 0 = Not at all Feeling afraid as if something awful might happen: 0 = Not at all Total CHRISTY-7 score (0-4 normal; 5-9 mild; 10-14 moderate; 15-21 severe): 0 Source: Developed by Drs. Benoit Barroso, Clarita Edmonds, Jt Melendez and colleagues, with an educational mary jane from [employer]. CHRISTY-7 Assessment Billing CHRISTY-7 Assessment Tool: CHRISTY-7 Assessment 59795 Review of Systems Const Denies body aches, Denies fatigue, Denies fever(s), Denies frequent falls, Denies headache(s) and Denies weakness Eyes Reports no additional complaints and Denies change in vision ENT Denies dysphagia, Denies dizziness, Denies facial pain, Denies headache(s), Denies nasal congestion and Denies odynophagia Card Denies chest pain, Denies syncope, Denies irregular heart rhythm, Denies leg edema, Denies lightheadedness and Denies dyspnea Resp Denies cough and Denies dyspnea GI Denies constipation, Denies dysphagia, Denies dyspepsia, Denies diarrhea, Denies nausea, Denies odynophagia and Denies vomiting Denies dysuria, Denies urinary frequency, Denies urinary hesitancy and Denies urinary urgency Musc Denies back pain and Denies myalgias Skin/Breast Reports system reviewed and no additional complaints, except as documented Neuro Denies dizziness, Denies syncope, Denies frequent falls, Denies headache(s) and Denies weakness Psych Reports no additional complaints Endo Denies fatigue Physical exam (Primary Care) Vital Signs: Last Vital Signs Temp 97.3 F 11/08/24 16:03 Pulse 66 11/08/24 16:03 Resp 16 11/08/24 16:03 BP 162/90 H 11/08/24 16:39 Pulse Ox 95 11/08/24 16:03 Oxygen Delivery Method Room Air 11/08/24 16:03 BMI result Body Mass Index 44.0 Tobacco/Smoking Status: Tobacco use Status Tobacco use date assessed 11/08/24 11/08/24 16:08 Patient Tobacco Use Status Never used Tobacco 11/08/24 16:08 Tobacco use type Cigarette 11/08/24 16:08 e-Cigarette/Vaping Use Never Used 11/08/24 16:08 PHQ-9: PHQ-9 Score PHQ-9: Total score 1 11/08/24 16:13 Depression Screening Interpretation: Negative Thrive Assessment: Date of Thrive Assessment Date Thrive assessed 11/08/24 11/08/24 16:08 Currently or been in a relationship where the following occur: No concerns reported Const General: cooperative, healthy appearing, comfortable and no acute distress Orientation/consciousness: patient oriented x3 HENMT Head: Yes normocephalic Ears: hearing grossly normal bilaterally, external ears normal, TM's normal bilaterally and EAC's normal General nose exam: Normal external nose present Face and sinus: Yes normal facial exam and Yes sinuses nontender Mouth: Normal oral and palatal mucosa present and tongue normal Throat: Yes posterior oropharynx normal Eyes General: appearance normal, both eyes and all related structures Conjunctivae: conjunctivae normal Pupils: Equal, round and reactive pupils present EOM: EOMs intact bilaterally and No Nystagmus present Neck Neck: Yes normal visual inspection, Yes full ROM and Yes no lymphadenopathy Chest Chest palpation & inspection: normal inspection of the chest Resp Effort & Inspection: normal respiratory effort Auscultation: clear to auscultation bilaterally, no crackles, no rales, no rhonchi, no wheezes and breath sounds present Cardio Rate: regular rate Rhythm: regular rhythm Peripheral pulses: radial pulses present and dorsalis pedis present GI Inspection: Yes normal to inspection and No Abdominal wall edema Palpation (GI): Soft to palpation, not firm and nontender Auscultation: normal bowel sounds Rectal Exam - Male: Yes deferred General: Yes no CVA tenderness Back/Spine/Pelvis Back: no CVA tenderness Skin General skin exam: no rashes or lesions noted Neuro General: patient oriented x3 Cranial nerves: Yes Equal, round and reactive pupils present, Yes Midline tongue present, Yes Ability to bilaterally elevate shoulders present and No Nystagmus present Gait exam (Neuro): Normal gait present Extrem General: Yes normal to inspection, Yes full ROM, No no pedal edema and No edema Psych Speech and movement: Normal speech and movement present Affect: normal affect Insight: Good insight present (Psych) Judgement: Good judgement present (Psych) Immunizations Boostrix Tdap 2.5 Lf unit-8 mcg-5 Lf/0.5 mL intramuscular syringe Performing Provider: Yvette Silverman PA-C [facility] [place] [facility] Administered by: Liz Pittman CMA on 11/08/24 16:50 Dose Route Admin Location Dispensed Lot Number Expiration Date LAC End[facility] Techn[employer] 0.5 mL IM Left Deltoid 0.5 mL [id number] 03/19/27 [id number] be[employer]ruited VIS Given Date VIS Provided VIS Publication Date 11/08/24 Single Vaccine 24 Eligibility Eligibility Date Funding Source Not [facility] Eligible 11/08/24 Private Coding Level of Care Code Est Pt Prev Care 40-64y(32410) Diagnoses Osteoarthritis of right knee M17.11 Osteoarthritis of left knee M17.12 Hypogonadism in male E29.1 Erectile dysfunction N52.9 LOGAN on CPAP G47.33 High blood cholesterol E78.00 Hypertension I10 Morbid obesity E66.01 Encounter for general adult medical examination without abnormal findings Z00.00 Transaminitis R74.01 Seropositive rheumatoid arthritis M05.9 Additional Codes CHRISTY-7 Assessment Billing - CHRISTY-7 Assessment Tool: CHRISTY-7 Assessment 46904 ([id number]) PHQ-9 - 80521 - PHQ-9 Billing: Yes ([id number]) Assessment & Plan Assessment & Plan (1) Osteoarthritis of right knee: Code(s): M17.11 - Unilateral primary osteoarthritis, right knee Category: Medical Plan: Patient is currently following with [facility] [place] for bilateral knee cortisone injections has been find this beneficial. (2) Osteoarthritis of left knee: Code(s): M17.12 - Unilateral primary osteoarthritis, left knee Category: Medical Plan: See above (3) Hypogonadism in male: Code(s): E29.1 - Testicular hypofunction Category: Medical Plan: Continue to follow up with urology will be due for blood work prior to his next visit. Continue to follow with urology. (4) Erectile dysfunction: Code(s): N52.9 - Male erectile dysfunction, unspecified Category: Medical Plan: Patient currently following with urology and on Cialis. (5) LOGAN on CPAP: Code(s): G47.33 - Obstructive sleep apnea (adult) (pediatric) Category: Medical Plan: Uses CPAP faithfully at least 4 hours a night and benefits from this therapy. (6) High blood cholesterol: Code(s): E78.00 - Pure hypercholesterolemia, unspecified Category: Medical Plan: Avoid foods that are high in cholesterol such as red meat, fried foods, eggs and baked goods. Triglyceride goal of less than 150 and LDL goal of less than 100. Continue on Gemfibrozil. Cholesterol elevated on last labs triglycerides elevated and LDL not able to be calculated. Patient states he was not fasting for last labs sent for repeat blood work to be done fasting for 8-10 hours. (7) Hypertension: Code(s): I10 - Essential (primary) hypertension Category: Medical Plan: Continue on current blood pressure medication. Avoid salt intake and encourage healthy diet and regular exercise. Blood pressure elevated in the office today patient states he has not taken his blood pressure medications today. Discussed the importance of medication compliance. Advised patient to obtain blood pressure cuff and take blood pressures at home 2-3 times per week and bring log to next visit in 6 weeks. If blood pressure at home exceed 140/90 to reach out to the office. (8) Morbid obesity: Code(s): E66.01 - Morbid (severe) obesity due to excess calories Category: Medical Plan: Healthy diet and regular exercise is encouraged. (9) Encounter for general adult medical examination without abnormal findings: Code(s): Z00.00 - Encounter for general adult medical examination without abnormal findings Category: Medical Plan: Patient is up-to-date on all recommended routine screenings and vaccinations for his age. Tetanus vaccine was given today. Blood work is up-to-date and has been reviewed at today's visit. Additional blood work was ordered and will be reviewed at his next visit. Healthy diet and regular exercise is encouraged. (10) Transaminitis: Comment: Difficult to assess, Elevated liver enzymes, reviewed labs, reviewed ultrasound/CT Overweight Arthritis Code(s): R74.01 - Elevation of levels of liver transaminase levels Category: Medical Plan: The liver function tests have normalized. (11) Seropositive rheumatoid arthritis: Comment: +RF -ve CCP dx 2011 MRX 2011 but did not have a response so medication was discontinued and patient was advised to follow-up if his symptoms worsened.? Then on methotrexate 6 tabs weekly from August 2019 to November 2020. Stopped due to systemic fatigue and brain fog and switched to leflunomide 12/10/2020. Tolerated Leflunomide with improved brain fog, Leflunomide stopped 12/16/2021 due to elevated LFTs. Code(s): M05.9 - Rheumatoid arthritis with rheumatoid factor, unspecified Category: Medical Plan: Patient is asymptomatic at this time and was advised by his repair miller to follow up as needed. He is not a candidate for medical treatment for rheumatoid arthritis due to elevated liver function testing while undergoing treatment. Patient to Continue to monitor symptoms at this time Plan This note was constructed using voice recognition software. While every effort has been made to ensure accuracy and precision agriculture technician, still areas may have been included sometimes these areas may affect the content or meeting of the given symptoms. Total time spent caring for the patient today was 30 minutes. This includes time spent before the visit reviewing the chart, time spent during the visit, and time spent after the visit and documentation. Patient was informed and verbally consented to the use of an ambient scribe for clinic note documentation during this visit. Orders: Orders Hemoglobin A1c Today Z13.1 - Encounter for screening for diabetes mellitus Lipid Panel Today E78.00 - Pure hypercholesterolemia, unspecified TDaP Immunization Today Z23 - Encounter for immunization Medications: New Boostrix Tdap (diphth,pertus(acell),tetanus) 0.5 mL IM ONCE 0.5 mL 0RF NS Z23 - Encounter for immunization cholecalciferol (vitamin D3) 25 mcg PO DAILY 90 caps 3RF
[2024-11-08 16:39] VITALS: BP 162/90
== END 2024-11-08 16:56 | disposition home or self-care (01) ==
LOC: HO.HMCH 15:52
PROVIDERS: PCP Internal Medicine
DX: Z00.00 Encounter for general adult medical examination without abnormal findings (principal); E66.01 Morbid (severe) obesity due to excess calories; M05.9 Rheumatoid arthritis with rheumatoid factor, unspecified; Z68.41 Body mass index [BMI] 40.0-44.9, adult; M17.0 Bilateral primary osteoarthritis of knee; E29.1 Testicular hypofunction; N52.9 Male erectile dysfunction, unspecified; G47.33 Obstructive sleep apnea (adult) (pediatric); E78.00 Pure hypercholesterolemia, unspecified; I10 Essential (primary) hypertension; Z23 Encounter for immunization

== ENCOUNTER → 2024-11-08 15:52 | Outpatient (BNVA) | payer OTHER, SELFPAY | PROVIDERS: PCP Internal Medicine | DX: Z00.00 Encounter for general adult medical examination without abnormal findings (principal); Z23 Encounter for immunization; M17.0 Bilateral primary osteoarthritis of knee; E29.1 Testicular hypofunction; N52.9 Male erectile dysfunction, unspecified; G47.33 Obstructive sleep apnea (adult) (pediatric); E78.00 Pure hypercholesterolemia, unspecified; I10 Essential (primary) hypertension; E66.01 Morbid (severe) obesity due to excess calories; Z68.41 Body mass index [BMI] 40.0-44.9, adult; R74.01 Elevation of levels of liver transaminase levels; M05.9 Rheumatoid arthritis with rheumatoid factor, unspecified | CPT/HCPCS: 90471; 90715; 96127 ==

== ENCOUNTER 2024-11-26 07:39 | Outpatient (AMB) | payer OTHER, SELFPAY ==
--- NOTE | 2024-11-26 07:47 | A.OFFVIS_ITS ---
Vital Signs 11/26/24 07:49 Height 5 ft 5 in Weight 264 lb BMI 43.9 Intake Visit Reasons: Inj-Bilateral knee steroid injection, last 08/28/24 Intake Note: Tru is a 59 year old male who presents with complaints of bilateral knee pains. He describes his pains as achy in nature. He has had cortisone injections in the past which gave him fairly good relief. He has tried Tylenol and anti-inflammatory medicines which gave him minimal relief. He wishes to hold off on surgery if at all possible. Allergies No Known Allergies [No Known Allergies*] Allergy (Verified 11/26/24 07:49) Medication List - Last Reconciled 11/26/24 by Van Humphrey MD albuterol sulfate 90 mcg/actuation 2 puffs inhalation QID PRN amlodipine 10 mg PO DAILY 90 days cholecalciferol (vitamin D3) 25 mcg PO DAILY CPAP (CPAP Machine/Device) As directed auto 6-20 gemfibrozil 600 mg PO BID tadalafil (Cialis) 20 mg PO DAILY PRN 30 days tadalafil (Cialis) 5 mg PO DAILY 90 days testosterone 2 pumps topical DAILY 30 days [facility] Medical History Transaminitis Elevated cholesterol HTN (hypertension) LOGAN (obstructive sleep apnea) Morbid obesity Seropositive rheumatoid arthritis Encounter for general adult medical examination without abnormal findings Surgical History H/O eye surgery Hx of facial fracture repair History of detached retina repair Hx of colonoscopy H/O rectal polypectomy Family History Brother No problems noted. Brother No problems noted. Sister No problems noted. Sister No problems noted. Social History Housing: House Alcohol intake: current Patient Tobacco Use Status: Never used Tobacco Tobacco use type: Cigarette e-Cigarette/Vaping Use: Never Used Second Hand Smoke Exposure: No service: No Current occupational status: employed Current occupation: Psychotherapist, [employer] Cognitive needs: No Hearing needs: No Vision needs: Yes (Glasses) Physical Exam Vital Signs: BMI result Body Mass Index 43.9 Const Other: Well-nourished well-developed very friendly male awake alert and oriented x3 in no acute distress Extrem Other: Bilateral lower extremity examination shows good capillary refill, no skin lesions noted, normal sensation light touch Bilateral knee examination shows minimal effusions, palpable crepitus with range of motion, pain with range of motion, no instability Office Procedures AMB Joint Injection/Aspiration Joint Injection/Aspiration Primary Site: left knee Prep: site was prepped using aseptic technique Injected: 40 mg of, DepoMedrol and 1% plain lidocaine Procedure: The patient tolerated the procedure well Coding - Large joint Procedure code (CPT) selection complete AMB Joint Injection/Aspiration Joint Injection/Aspiration Primary Site: right knee Prep: site was prepped using aseptic technique Injected: 40 mg of, DepoMedrol and 1% plain lidocaine Procedure: The patient tolerated the procedure well Coding - Large joint Procedure code (CPT) selection complete Assessment & Plan Assessment & Plan (1) Osteoarthritis of left knee: Code(s): M17.12 - Unilateral primary osteoarthritis, left knee Category: Medical (2) Osteoarthritis of right knee: Code(s): M17.11 - Unilateral primary osteoarthritis, right knee Category: Medical Plan Mr. Chavez presents with bilateral knee pains due to osteoarthritis. The risks and benefits of bilateral knee cortisone injections were discussed at length with the patient. The patient wished to proceed. He tolerated the injections well. He will continue with his home exercise program. He will contact me prior to his follow-up appointment in 3 months should any questions or concerns arise. Feel free to call me at any time should questions regarding his orthopedic management arise. I spent 22 minutes in reviewing the patient's records and imaging studies, seeing the patient and documenting in the medical record. Orders: Orders AMB Joint Injection/Aspiration Today M17.11 - Unilateral primary osteoarthritis, right knee AMB Joint Injection/Aspiration Today M17.12 - Unilateral primary osteoarthriti s, left knee Coding Level of Care Code Est Pt Level 3 (86067) Complex EM visit Add On G2211 Diagnoses Osteoarthritis of left knee M17.12 Osteoarthritis of right knee M17.11 CPT Codes Coding - 96414 Large joint: 65759 - Large joint ([id number]) Coding - 11639 Large joint: 12866 - Large joint ([id number])
[2024-11-26 07:49] VITALS: BMI 43.9
== END 2024-11-26 08:10 | disposition home or self-care (01) ==
LOC: HO.HOS 07:40
PROVIDERS: PCP Internal Medicine; Visit Provider Orthopaedic Surgery
DX: M17.0 Bilateral primary osteoarthritis of knee (principal)
CPT/HCPCS: 20610

== ENCOUNTER → 2024-11-26 07:39 | Outpatient (BNVA) | payer OTHER, SELFPAY | PROVIDERS: PCP Internal Medicine; Visit Provider Orthopaedic Surgery | DX: M17.0 Bilateral primary osteoarthritis of knee (principal) | CPT/HCPCS: 20610; J1010; J2003 ==

== ENCOUNTER → 2024-12-20 15:53 | Outpatient (BNVA) | payer OTHER, SELFPAY | PROVIDERS: PCP Internal Medicine | DX: Z13.89 Encounter for screening for other disorder (principal) ==

== ENCOUNTER 2024-12-26 14:18 | Outpatient (AMB) | payer OTHER, SELFPAY ==
[2024-12-26 14:33] VITALS: BP 112/70; PULSE 79; O2SAT 96; BMI 44.3
--- NOTE | 2024-12-26 14:33 | A.OFFPC_ITS ---
Vital Signs 12/26/24 14:33 12/26/24 15:07 Height 5 ft 5 in Weight 266 lb 8 oz BMI 44.3 BP 112/70 138/80 Blood Pressure Location Lt brachial Lt brachial Position Sitting Sitting Pulse 79 Pulse Source Pulse Oximeter Pulse Oximetry (%) 96 Oxygen Delivery Method Room Air Intake Visit Reasons: f/u htn Abrasives Sales Representative Required: No Accompanied by: Self / Same As Patient Allergies No Known Allergies [No Known Allergies*] Allergy (Verified 12/26/24 14:58) Medication List - Last Reconciled 12/26/24 by Yvette Silverman PA-C albuterol sulfate 90 mcg/actuation 2 puffs inhalation QID PRN amlodipine 10 mg PO DAILY 90 days cholecalciferol (vitamin D3) 25 mcg PO DAILY CPAP (CPAP Machine/Device) As directed auto 6-20 gemfibrozil 600 mg PO BID tadalafil (Cialis) 20 mg PO DAILY PRN 30 days tadalafil (Cialis) 5 mg PO DAILY 90 days testosterone 2 pumps topical DAILY 30 days Tobacco use date assessed: 12/26/24 Dental Screening Dental Screen Date: 12/26/24 Did you have a dental visit in the last 12 months?: No Did you have a dental problem in the last 6 months where you did not have access to dental care?: No Was dental information given to patient?: No HPI f/u htn HPI Details 59-year-old male with past medical histo ry of hypertension, morbid obesity, rheumatoid arthritis, obstructive sleep apnea on CPAP last seen 10/2024 coming in for follow up. Presenting with a follow-up for blood pressure management. He reports his blood pressure readings at home fluctuate between 131/80 mmHg to 173 mmHg. He has improved his medication adherence, particularly with amlodipine, although he occasionally misses doses of gemfibrozil, which is indicated for his hyperlipidemia. His recent lab work showed elevated triglycerides, complicated by a non-fasting state during the test. The patient's life has been stressful, and he attributes this to family matters, including caring for a foster child and his 's injury. Currently, he denies any chest pain or headaches and notes regular usage of a CPAP machine for obstructive sleep apnea. [facility] Medical History Transaminitis Elevated cholesterol HTN (hypertension) LOGAN (obstructive sleep apnea) Morbid obesity Seropositive rheumatoid arthritis Encounter for general adult medical examination without abnormal findings Surgical History H/O eye surgery Hx of facial fracture repair History of detached retina repair Hx of colonoscopy H/O rectal polypectomy Family History Brother No problems noted. Brother No problems noted. Sister No problems noted. Sister No problems noted. Social History Housing: House Alcohol intake: current Patient Tobacco Use Status: Never used Tobacco Tobacco use type: Cigarette e-Cigarette/Vaping Use: Never Used Second Hand Smoke Exposure: No service: No Current occupational status: employed Current occupation: Psychotherapist, [employer] Cognitive needs: No Hearing needs: No Vision needs: Yes (Glasses) Questionnaire PHQ-9 Over the last 2 weeks, how often have you been bothered by any of the following problems? 1. Little interest or pleasure in doing things: not at all 2. Feeling down, depressed, or hopeless: not at all 3. Trouble falling or staying asleep, or sleeping too much: not at all 4. Feeling tired or having little energy: several days 5. Poor appetite or overeating: not at all 6. Feeling bad about yourself - or that you are a failure or have let yourself or your family down: not at all 7. Trouble concentrating on things, such as reading the newspaper or watching television: not at all 8. Moving or speaking so slowly that other people could have noticed. Or the opposite - being so fidgety or restless that you have been moving around a lot more than usual: not at all 9. Thoughts that you would be better off or of hurting yourself in some way: not at all Total score: 1 Depression Screening Interpretation: Negative Depression Screening Done: Yes 81687 - PHQ-9 Billing: Yes Source: Developed by Drs. Benoit Barroso, Clarita Edmonds, Jt Melendez and colleagues, with an educational mary jane from [employer]. Thrive Questionnaire Date Thrive assessed: 12/26/24 I am a: Patient What is your living situation today?: I have a steady place to live Within the past 12 months, did the food you bought not last and you didn't have the money to get more?: Never true Within the past 12 months, did you worry whether your food would run out before you got money to buy more?: Never true Do you have trouble paying for medicines?: No Do you have trouble getting transportation to medical appointments?: No Do you have trouble paying your heating and electricity bill?: No Do you have trouble taking care of your child, family member or friend?: No Do you have trouble with day-to-day activities such as bathing, preparing meals, shopping, managing finances, etc.?: No Are you currently unemployed and looking for a job?: No Are you interested in more education?: Yes Please select the resources that you would like help with: None Currently or been in a relationship where the following occur: No concerns reported THRIVE Score: 0 AUDIT C Alcohol Use Questionnaire (AUDIT-C) 1. How often do you have a drink containing alcohol?: Monthly or less 2. How many drinks containing alcohol do you have on a typical day when you are drinking?: 1 or 2 3. How often do you have six or more drinks on one occasion?: Never Total Score: 1 Score Reviewed/Action Taken: No CHRISTY-7 AMB Questionnaire CHRISTY-7 Date CHRISTY - 7 assessed: 12/26/24 Feeling nervous, anxious, or on edge: 0 = Not at all Not being able to stop or control worryin = Not at all Worrying too much about different things: 0 = Not at all Trouble relaxin = Not at all Being so restless that it is hard to sit still: 0 = Not at all Becoming easily annoyed or irritable: 0 = Not at all Feeling afraid as if something awful might happen: 0 = Not at all Total CHRISTY-7 score (0-4 normal; 5-9 mild; 10-14 moderate; 15-21 severe): 0 Source: Developed by Drs. Benoit Barroso, Clarita Edmonds, Jt Melendez and colleagues, with an educational mary jane from [employer] CHRISTY-7 Assessment Billing CHRISTY-7 Assessment Tool: CHRISTY-7 Assessment 13179 Review of Systems Const Denies body aches, Denies chills, Denies fever(s), Denies headache(s) and Denies poor appetite Eyes Reports no additional complaints ENT Denies dizziness and Denies headache(s) Card Denies chest pain, Denies lightheadedness and Denies dyspnea Resp Denies cough and Denies dyspnea GI Denies nausea and Denies vomiting Reports no additional complaints Musc Reports no additional complaints and Denies abnormal gait Skin/Breast Reports system reviewed and no additional complaints, except as documented Neuro Denies abnormal gait, Denies dizziness and Denies headache(s) Psych Reports no additional complaints Physical exam (Primary Care) Vital Signs: Last Vital Signs Pulse 79 12/26/24 14:33 BP 112/70 12/26/24 14:33 Pulse Ox 96 12/26/24 14:33 Oxygen Delivery Method Room Air 12/26/24 14:33 BMI result Body Mass Index 44.3 Tobacco/Smoking Status: Tobacco use Status Tobacco use date assessed 12/26/24 12/26/24 14:41 Patient Tobacco Use Status Never used Tobacco 12/26/24 14:41 Tobacco use type Cigarette 12/26/24 14:41 e-Cigarette/Vaping Use Never Used 12/26/24 14:41 PHQ-9: PHQ-9 Score PHQ-9: Total score 1 12/26/24 14:41 Depression Screening Interpretation: Negative Thrive Assessment: Date of Thrive Assessment Date Thrive assessed 12/26/24 12/26/24 14:41 Currently or been in a relationship where the following occur: No concerns reported Const General: cooperative, healthy appearing, comfortable and no acute distress Orientation/consciousness: patient oriented x3 [facility] Head: Yes normocephalic Ears: hearing grossly normal bilaterally General nose exam: Normal external nose present Eyes General: appearance normal, both eyes and all related structures Conjunctivae: conjunctivae normal Neck Neck: Yes full ROM and Yes no lymphadenopathy Resp Effort & Inspection: normal respiratory effort Auscultation: clear to auscultation bilaterally, no crackles, no rales, no rhonchi and no wheezes Cardio Rate: regular rate Rhythm: regular rhythm Skin General skin exam: no rashes or lesions noted Neuro General: patient oriented x3 Gait exam (Neuro): Normal gait present Extrem General: Yes normal to inspection, Yes full ROM and No edema Psych Affect: normal affect Attitude: cooperative Insight: Good insight present (Psych) Judgement: Good judgement present (Psych) Coding Level of Care Code Est Pt Level 4 (73634) Diagnoses Hypertension I10 Hyperlipidemia E78.5 Elevated blood sugar R73.9 LOGAN on CPAP G47.33 Additional Codes CHRISTY-7 Assessment Billing - CHRISTY-7 Assessment Tool: CHRISTY-7 Assessment 96625 ([id number]) PHQ-9 - 17319 - PHQ-9 Billing: Yes ([id number]) Assessment & Plan Assessment & Plan (1) Hypertension: Code(s): I10 - Essential (primary) hypertension Category: Medical Plan: Continue on current blood pressure medication. Avoid salt intake and encourage healthy diet and regular exercise. Blood pressure is still not well controlled but has improved since last visit. He continues to have values in the high 130s to mid 140s systolic with normal diastolic. Plan to add losartan 25 mg to medication regimen. Continue to monitor blood pressures at home and bring log to next visit (2) Hyperlipidemia: Code(s): E78.5 - Hyperlipidemia, unspecified Category: Medical Plan: Avoid foods that are high in cholesterol such as red meat, fried foods, eggs and baked goods. Triglyceride goal of less than 150 and LDL goal of less than 100. Patient is currently on gemfibrozil 600 mg b.i.d. patient states he typically will only take it once a day. His last blood work he was not fasting plan to repeat blood work with fasting for 12 hours to get better idea of efficacy of medication. Consider statin therapy (3) Elevated blood sugar: Code(s): R73.9 - Hyperglycemia, unspecified Category: Medical Plan: Patient having elevated blood sugar on last labs he was not fasting for these labs plan to obtain A1c with next blood work. (4) LOGAN on CPAP: Code(s): G47.33 - Obstructive sleep apnea (adult) (pediatric) Category: Medical Plan: Uses CPAP faithfully at least 4 hours a night and benefits from this therapy. Plan The plan includes continuing current hypertension management with the addition of losartan due to inadequate control with amlodipine alone. A fasting lipid profile was recommended to ensure accurate assessment for hyperlipidemia management. Compliance with the CPAP machine remains a critical component for obstructive sleep apnea management. Lifestyle modifications, such as resuming physical activity and managing stress, are emphasized. A follow-up in six weeks is scheduled to review blood pressure and lab results. This note was constructed using voice recognition software. While every effort has been made to ensure accuracy and stock broker, still areas may have been included sometimes these areas may affect the content or meeting of the given symptoms. Total time spent caring for the patient today was 20 minutes. This includes time spent before the visit reviewing the chart, time spent during the visit, and time spent after the visit and documentation. Patient was informed and verbally consented to the use of an ambient scribe for clinic note documentation during this visit. Medications: New losartan 25 mg PO DAILY 30 tabs 1RF Refilled cholecalciferol (vitamin D3) 25 mcg PO DAILY 90 caps 3RF
[2024-12-26 15:07] VITALS: BP 138/80
== END 2024-12-26 15:15 | disposition home or self-care (01) ==
LOC: HO.HMCH 14:19
PROVIDERS: PCP Internal Medicine
DX: I10 Essential (primary) hypertension (principal); E78.5 Hyperlipidemia, unspecified; R73.9 Hyperglycemia, unspecified; G47.33 Obstructive sleep apnea (adult) (pediatric)

== ENCOUNTER → 2024-12-26 14:18 | Outpatient (BNVA) | payer OTHER, SELFPAY | PROVIDERS: PCP Internal Medicine | DX: I10 Essential (primary) hypertension (principal); E78.5 Hyperlipidemia, unspecified; R73.9 Hyperglycemia, unspecified; E66.9 Obesity, unspecified; M06.9 Rheumatoid arthritis, unspecified; G47.33 Obstructive sleep apnea (adult) (pediatric); Z68.41 Body mass index [BMI] 40.0-44.9, adult; Z99.89 Dependence on other enabling machines and devices | CPT/HCPCS: 96127 ==

== ENCOUNTER 2025-01-03 08:51 | Outpatient (REF) | payer OTHER, SELFPAY ==
[2025-01-03 09:50] LABS: Estimated Average Glucose 154 mg/dL
[2025-01-03 10:56] LABS: Cholesterol 194 mg/dL (<200); HDL Cholesterol 34 mg/dL (>40); LDL Cholesterol Calculated 110 mg/dL (<100); Triglycerides 252 mg/dL (<150)
== END 2025-01-03 08:52 | disposition home or self-care (01) ==
LOC: HO.LAB 08:51
DX: Z13.1 Encounter for screening for diabetes mellitus (principal); E78.00 Pure hypercholesterolemia, unspecified
CPT/HCPCS: 36415; 80061; 83036

== ENCOUNTER 2025-02-25 07:46 | Outpatient (AMB) | payer OTHER, SELFPAY ==
--- OUTSIDE RECORDS SUMMARY | 2025-02-25 07:49 | XMS_ITS | Patient Health Record ---
Author Organization [facility] Address [address] [place] [address] Care Team Providers Care Downstream Biomanufacturing Technician Name Role Phone Eduardo Mcclain MD Primary Care Provider Lilaa Benoit Desouza Unavailable [phone] Reason For Referral No Information Medications Medication SIG (Take, Route, Frequency, Duration) Notes Start Date End Date Status Calcium Active Multivitamin Active Advil prn Active Flax Seeds Active Problems Problem Type SNOMED Code ICD Code Onset Dates Problem Status W/U Status Risk Notes Problem [id number] Encounter for screening for malignant neoplasm of colon (Z12.11) Active confirmed Problem Screening for malignant neoplasm of rectum ([id number]) Encounter for screening for malignant neoplasm of rectum (Z12.12) Active confirmed Problem 195760211 Elevated liver function tests (R79.89) Active confirmed Problem 95924470 Preprocedural examination (Z01.818) Active confirmed Problem 473120440 Elevated liver enzymes (R74.8) Active confirmed Plan Of Treatment Pending Test Test Name Order Date LIVER PROFILE 04/02/2016 IRON + IBC (FE) 04/02/2016 FERRITIN 04/02/2016 HEPATITIS B, C PROFILE 04/02/2016 [id number] (A1A) 04/02/2016 MITOCHONDRIAL AB 04/02/2016 SMOOTH MUSCLE ANTIBODIES 04/02/2016 FLUOR. ANTINUCLEAR AB SCREEN (HOANG) 03/24 Future Test Test Name Order Date COLONOSCOPY 02/18/2016 Insurance Providers Payer Name Payer Address Payer Phone Subscriber Number Group Number Insured Name Patient Relationship to Insured Coverage Start Date Coverage End Date [facility] [address] [place] [address] [id number] [id number] Self - patient is the insured Medical (General) History Medical History History ICD Code Colonoscopy 12-14-2004---hyperplastic bonnie yp, internal hemorrhoids Rheumatoid arthritis Sleep apnea-uses CPAP Denies AK,DM,CVA,Lung disease,renal dise ase Urethral stricture as below Pneumonia and bronchitis Surgical History Surgery Date(Month/Year) Left eye--orbital fracture, detached ret gloria--2 separate issues Urethral stricture--dilated
--- OUTSIDE RECORDS SUMMARY | 2025-02-25 07:49 | XMS_ITS | Encounter Summary ---
Author Organization [facility] Address [address] [place] [id number] Phone Care Team Providers Care Band Master Name Role Phone Eduardo Mcclain MD Primary Care Provider [phone] Encounter Details Date Type Department Care Team (Late st Contact Info) Description 05/01/2020 Telephone [facility] [address] [place] [address] Louann Jenkins MD [address] [place] [phone] Conchis [email or web address] Social History Tobacco Use Types Packs/Day Years Used Date Smoking Tobacco: Never Smokeless Tobacco: Never Alcohol Use Standard Drinks/Week Comments Yes 0 (1 standard drink = 0.6 oz pur e alcohol) rare Sex and Gender Information Value Date Recorded Sex Assigned at Not on file Legal Sex Male 3:47 PM EDT Gender Identity Not on file Sexual Orientation Not on file documented as of this encounter Plan of Treatment Not on file documented as of this encounter Visit Diagnoses Not on filedocumented in this encounter Care Teams Band Master Relationship Specialty Start Date End Date Eduardo Mcclain MD [address] [place] [address] [place] [address] PCP - General Internal Medicine 02/28/18 documented as of this encounter Additional Source Comments The information contained in this document represents components of the legal health record. It is not the complete legal health record.[facility]
--- NOTE | 2025-02-25 07:56 | A.OFFVIS_ITS ---
Intake Visit Reasons: Inj-Bilateral knee steroid injection, last 11/26/24 Intake Note: Tru is a 60 year old male who presents with complaints of bilateral knee pains. He describes his pains as sharp in nature. He has tried Tylenol and ibuprofen which gave him mild relief. He denies any locking or giving way. He has had cortisone injections in the past which gave him good relief. He wishes to hold off on surgery if at all possible. Allergies No Known Allergies (No Known Allergies*) Allergy (Verified 02/25/25 07:56) [facility] Medical History Transaminitis Elevated cholesterol HTN (hypertension) LOGAN (obstructive sleep apnea) Morbid obesity Seropositive rheumatoid arthritis Encounter for general adult medical examination without abnormal findings Surgical History H/O eye surgery Hx of facial fracture repair History of detached retina repair Hx of colonoscopy H/O rectal polypectomy Family History Brother No problems noted. Brother No problems noted. Sister No problems noted. Sister No problems noted. Social History Housing: House Alcohol intake: current Patient Tobacco Use Status: Never used Tobacco Tobacco use type: Cigarette e-Cigarette/Vaping Use: Never Used Second Hand Smoke Exposure: No service: No Current occupational status: employed Current occupation: Psychotherapist, [employer] Cognitive needs: No Hearing needs: No Vision needs: Yes (Glasses) Physical Exam Const Other: Well-nourished well-developed very friendly male awake alert and oriented x3 in no acute distress Extrem Other: Bilateral knee examination shows minimal effusions, palpable crepitus with range of motion, pain with range of motion, no instability Office Procedures AMB Joint Injection/Aspiration Joint Injection/Aspiration Primary Site: left knee Prep: site was prepped using aseptic technique Injected: 40 mg of, DepoMedrol and 1% plain lidocaine Procedure: The patient tolerated the procedure well Coding 61573 - Large joint Procedure code (CPT) selection complete AMB Joint Injection/Aspiration Joint Injection/Aspiration Primary Site: right knee Prep: site was prepped using aseptic technique Injected: 40 mg of, DepoMedrol and 1% plain lidocaine Procedure: The patient tolerated the procedure well Coding - Large joint Procedure code (CPT) selection complete Results Reviewed Results Reviewed: X-rays of the patient's bilateral knees taken previously show joint space narrowing, subchondral sclerosis, no acute bony abnormalities Assessment & Plan Assessment & Plan (1) Osteoarthritis of left knee: Code(s): M17.12 - Unilateral primary osteoarthritis, left knee Category: Medical (2) Osteoarthritis of right knee: Code(s): M17.11 - Unilateral primary osteoarthritis, right knee Category: Medical Plan Mr. Chavez presents with bilateral knee pains due to degenerative joint disease. The risks and benefits of bilateral knee cortisone injections were discussed at length with the patient. The patient wished to proceed. He tolerated the injections well. He will continue with his home exercise program. He will contact me prior to his follow-up appointment in 3 months should any questions or concerns arise. Feel free to call me at any time should questions regarding his orthopedic management arise. I spent 22 minutes in reviewing the patient's records and imaging studies, seeing the patient and documenting in the medical record. Orders: Orders AMB Joint Injection/Aspiration Today M17.12 - Unilateral primary osteoarthritis, left knee AMB Joint Injection/Aspiration Today M17.11 - Unilateral primary osteoarthritis, right knee Coding Level of Care Code Est Pt Level 3 (51315) Complex EM visit Add On G2211 Diagnoses Osteoarthritis of left knee M17.12 Osteoarthritis of right knee M17.11 CPT Codes Coding - 11720 Large joint: 73746 - Large joint ([id number]) Coding - 89972 Large joint: 26581 - Large joint ([id number])
== END 2025-02-25 08:08 | disposition home or self-care (01) ==
LOC: HO.HOS 07:47
PROVIDERS: PCP Internal Medicine; Visit Provider Orthopaedic Surgery
DX: M17.0 Bilateral primary osteoarthritis of knee (principal)
CPT/HCPCS: 20610; 99213

== ENCOUNTER → 2025-02-25 07:46 | Outpatient (BNVA) | payer OTHER, SELFPAY | PROVIDERS: PCP Internal Medicine; Visit Provider Orthopaedic Surgery | DX: M17.12 Unilateral primary osteoarthritis, left knee (principal); M17.11 Unilateral primary osteoarthritis, right knee | CPT/HCPCS: 20610; J1010; J2003 ==

== ENCOUNTER 2025-03-05 09:20 | Outpatient (AMB) | payer OTHER, SELFPAY ==
--- NOTE | 2025-03-05 09:27 | MHC.PC.OV ---
Vital Signs 03/05/25 09:28 Height 5 ft 5 in Weight 258 lb 6 oz BMI 43.0 BP 136/62 Blood Pressure Location Lt brachial Position Sitting Pulse 61 Pulse Source Pulse Oximeter Pulse Oximetry (%) 95 Oxygen Delivery Method Room Air Intake Visit Reasons: HTN/HLD Quality Process Auditor Required: No Accompanied by: Self / Same As Patient Allergies No Known Allergies (No Known Allergies*) Allergy (Verified 03/05/25 09:35) Medication List - Last Reconciled 03/05/25 by Yvette Silverman PA-C albuterol sulfate 90 mcg/actuation 2 puffs inhalation QID PRN amlodipine 10 mg PO DAILY 90 days cholecalciferol (vitamin D3) 25 mcg PO DAILY CPAP (CPAP Machine/Device) As directed auto 6-20 gemfibrozil 600 mg PO BID losartan 25 mg PO DAILY tadalafil (Cialis) 20 mg PO DAILY PRN 30 days tadalafil (Cialis) 5 mg PO DAILY 90 days testosterone 2 pumps topical DAILY 30 days Tobacco use date assessed: 03/05/25 Dental Screening Dental Screen Date: 03/05/25 Did you have a dental visit in the last 12 months?: No Did you have a dental problem in the last 6 months where you did not have access to dental care?: No Was dental information given to patient?: No HPI HTN/HLD HPI Details 60-year-old male with past medical history of hypertension, morbid obesity, rheumatoid arthritis, obstructive sleep apnea on CPAP last seen 12/2024 coming in for follow up. At his last visit he was started on losartan 25 mg for blood pressure control and advised to repeat his blood work as he was not taking his gemfibrozil accurately. Presenting for a follow-up visit to manage chronic conditions including hypertension, hyperlipidemia, and diabetes mellitus. The patient has been monitoring blood pressure at home, with readings mostly in the 140s and some in the 130s, with an occasional spike to 168 mmHg. The patient has improved cholesterol levels after giving up fast food and is currently on gemfibrozil, although adherence is inconsistent due to difficulty remembering evening doses. The patient's last A1c was 7.0%, indicating diabetes, but dietary changes are being implemented to improve this without medication. The patient uses CPAP at night, which is well tolerated. The patient has lost 8 pounds since the last visit, attributed to increased physical activity, including walking on a treadmill and playing tennis. [facility] Medical History Elevated blood sugar Transaminitis Elevated cholesterol HTN (hypertension) LOGAN (obstructive sleep apnea) Seropositive rheumatoid arthritis Encounter for general adult medical examination without abnormal findings Surgical History H/O eye surgery Hx of facial fracture repair History of detached retina repair Hx of colonoscopy H/O rectal polypectomy Family History Brother No problems noted. Brother No problems noted. Sister No problems noted. Sister No problems noted. Social History Housing: House Alcohol intake: current Patient Tobacco Use Status: Never used Tobacco Tobacco use type: Cigarette e-Cigarette/Vaping Use: Never Used Second Hand Smoke Exposure: No service: No Current occupational status: employed Current occupation: Psychotherapist, [employer] Cognitive needs: No Hearing needs: No Vision needs: Yes (Glasses) Questionnaire Thrive Questionnaire Date Thrive assessed: 03/05/25 I am a: Patient What is your living situation today?: I have a steady place to live Within the past 12 months, did the food you bought not last and you didn't have the money to get more?: Never true Within the past 12 months, did you worry whether your food would run out before you got money to buy more?: Never true Do you have trouble paying for medicines?: No Do you have trouble getting transportation to medical appointments?: No Do you have trouble paying your heating and electricity bill?: No Do you have trouble taking care of your child, family member or friend?: No Do you have trouble with day-to-day activities such as bathing, preparing meals, shopping, managing finances, etc.?: No Are you currently unemployed and looking for a job?: No Are you interested in more education?: Yes Please select the resources that you would like help with: None Currently or been in a relationship where the following occur: No concerns reported THRIVE Score: 0 CHRISTY-7 AMB Questionnaire CHRISTY-7 Date CHRISTY - 7 assessed: 03/05/25 Source: Developed by Drs. Benoit Barroso, Clarita Edmonds, Jt Melendez and colleagues, with an educational mary jane from [employer]. Review of Systems Const Denies body aches, Denies chills, Denies fever(s), Denies headache(s) and Denies poor appetite Eyes Reports no additional complaints ENT Denies dizziness and Denies headache(s) Card Denies chest pain, Denies lightheadedness and Denies dyspnea Resp Denies dyspnea GI Denies nausea and Denies vomiting Reports no additional complaints Musc Reports no additional complaints and Denies abnormal gait Skin/Breast Reports system reviewed and no additional complaints, except as documented Neuro Denies abnormal gait, Denies dizziness and Denies headache(s) Psych Reports no additional complaints Physical exam (Primary Care) Vital Signs: Last Vital Signs Pulse 61 03/05/25 09:28 BP 136/62 03/05/25 09:28 Pulse Ox 95 03/05/25 09:28 Oxygen Delivery Method Room Air 03/05/25 09:28 BMI result Body Mass Index 43.0 Tobacco/Smoking Status: Tobacco use Status Tobacco use date assessed 03/05/25 03/05/25 09:32 Patient Tobacco Use Status Never used Tobacco 03/05/25 09:32 Tobacco use type Cigarette 03/05/25 09:32 e-Cigarette/Vaping Use Never Used 03/05/25 09:32 Thrive Assessment: Date of Thrive Assessment Date Thrive assessed 03/05/25 03/05/25 09:32 Currently or been in a relationship where the following occur: No concerns reported Const General: cooperative, healthy appearing, comfortable and no acute distress Orientation/consciousness: patient oriented x3 HENMT Head: Yes normocephalic Ears: hearing grossly normal bilaterally General nose exam: Normal external nose present Eyes General: appearance normal, both eyes and all related structures Conjunctivae: conjunctivae normal Neck Neck: Yes full ROM and Yes no lymphadenopathy Resp Effort & Inspection: normal respiratory effort Auscultation: clear to auscultation bilaterally, no crackles, no rales, no rhonchi and no wheezes Cardio Rate: regular rate Rhythm: regular rhythm Skin General skin exam: no rashes or lesions noted Neuro General: patient oriented x3 Gait exam (Neuro): Normal gait present Extrem General: Yes normal to inspection, Yes full ROM and No edema Psych Affect: normal affect Attitude: cooperative Insight: Good insight present (Psych) Judgement: Good judgement present (Psych) Coding Level of Care Code Est Pt Level 4 (62833) Diagnoses Hypertension I10 Hyperlipidemia E78.5 Diabetes mellitus E11.9 Morbid obesity E66.01 Assessment & Plan Assessment & Plan (1) Hypertension: Code(s): I10 - Essential (primary) hypertension Category: Medical Plan: Continue on current blood pressure medication. Avoid salt intake and encourage healthy diet and regular exercise. Blood pressure elevated in the office 142/70 and is having frequent values over 140 systolic at home. Plan to increase Losartan to 50mg and advised patient to continue to monitor and if exceeds 140/90 to reach out to the office. (2) Hyperlipidemia: Code(s): E78.5 - Hyperlipidemia, unspecified Category: Medical Plan: Avoid foods that are high in cholesterol such as red meat, fried foods, eggs and baked goods. Triglyceride goal of less than 150 and LDL goal of less than 100. Patient is currently on gemfibrozil 600 mg b.i.d. patient states he typically will only take it once a day. Last LDL 110 which is above goal however he is workin on lifestyle management. Advised him to take the Gemfibrozil in two doses not in a single dose. (3) Diabetes mellitus: Code(s): E11.9 - Type 2 diabetes mellitus without complications Category: Medical Plan: Decrease the amount of carbohydrates such as pasta, bread, rice, and potatoes and limit the amount of sweets. Although fruits are generally healthy they should be eaten in moderation as they are still high in sugar. Hemoglobin A1c goal of less than 7%. His last A1c 7.0% and has been working on dietary and lifestyle management. PLan to repeat labs next month and follow up in 4 months. Discussed with patient need for eye doctor and he will be seeing one soon. (4) Morbid obesity: Code(s): E66.01 - Morbid (severe) obesity due to excess calories Category: Medical Plan: Healthy diet and regular exercise is encouraged. Noted 8 lb weight loss since last visit. Plan This note was constructed using voice recognition software. While every effort has been made to ensure accuracy and disability manager, still areas may have been included sometimes these areas may affect the content or meeting of the given symptoms. Total time spent caring for the patient today was 20 minutes. This includes time spent before the visit reviewing the chart, time spent during the visit, and time spent after the visit and documentation. Patient was informed and verbally consented to the use of an ambient scribe for clinic note documentation during this visit. Orders: Orders Microalbumin, Random (w Creat) Today E11.9 - Type 2 diabetes mellitus without complications Comprehensive Met. Panel Today R74.01 - Elevation of levels of liver transaminase levels, Z00.00 - Encounter for general adult medical examination without abnormal findings Medications: New losartan 50 mg PO DAILY 90 tabs 1RF Discontinued losartan Discontinued Reason: Patient no longer taking 25 mg PO DAILY 30 tabs 1RF
[2025-03-05 09:28] VITALS: BP 136/62; PULSE 61; O2SAT 95; BMI 43.0
--- OUTSIDE RECORDS SUMMARY | 2025-03-05 09:43 | XMS_ITS | Encounter Summary ---
Author Organization [facility] Address [address] [place] [address] Phone Care Team Providers Care Diabetic Educator Name Role Phone Eduardo Mcclain MD Primary Care Provider Encounter Details Date Type Department Care Team (Late st Contact Info) Description 05/01/2020 Telephone [facility] [address] [address] Louann Jenkins MD [address] [place] [phone] [email or web address] Social History Tobacco Use Types Packs/Day Years [...] on filedocumented in this encounter Care Teams Diabetic Educator Relationship Specialty Start Date End Date Eduardo Mcclain MD [address] [place] [address] [place] [address] PCP - General Internal Medicine 02/28/18 documented as of this encounter Additional Source Comments The information contained in this document represents components of the legal health record. It is not the complete legal health record.[facility]
== END 2025-03-05 09:51 | disposition home or self-care (01) ==
LOC: HO.HMCH 09:21
DX: E11.69 Type 2 diabetes mellitus with other specified complication (principal); E66.01 Morbid (severe) obesity due to excess calories; Z68.41 Body mass index [BMI] 40.0-44.9, adult; I10 Essential (primary) hypertension; E78.5 Hyperlipidemia, unspecified

== ENCOUNTER 2025-03-06 07:49 | Outpatient (REF) | payer OTHER, SELFPAY ==
--- OUTSIDE RECORDS SUMMARY | 2025-03-06 07:51 | XMS_ITS | Encounter Summary ---
Author Organization [facility] Address [address] [place] [address] Phone Care Team Providers Care Environmental Monitoring Specialist Name Role Phone Eduardo Mcclain MD Primary Care Provider [phone] Encounter Details Date Type Department Care Team (Late st Contact Info) Description 05/01/2020 Telephone [facility] [address] [address] Louann Jenkins MD [address] [place] [phone] [email or web address] Social History Tobacco Use Types Packs/Day [...] on filedocumented in this encounter Care Teams Environmental Monitoring Specialist Relationship Specialty Start Date End Date Eduardo Mcclain MD [address] [place] [address] [place] [address] PCP - General Internal Medicine 02/28/18 documented as of this encounter Additional Source Comments The information contained in this document represents components of the legal health record. It is not the complete legal health record.[facility]
--- OUTSIDE RECORDS SUMMARY | 2025-03-06 07:51 | XMS_ITS | Patient Health Record ---
Author Organization [facility] Address [address] [place] [address] Care Team Providers Care Pipe Liner Name Role Phone Eduardo Mcclain MD Primary Care Provider Benoit Brandt Unavailable [phone] Reason For Referral No Information Medications Medication SIG (Take, Route, Frequency, Duration) Notes Start Date End Date Status Calcium Active Multivitamin Active Advil prn Active Flax Seeds Active Problems Problem Type SNOMED Code ICD Code Onset Dates Problem Status W/U Status Risk Notes Problem [id number] Encounter for screening for malignant neoplasm of colon (Z12.11) Active confirmed Problem Encounter for screening for malignant neoplasm of rectum (Z12.12) Active confirmed Problem [id number] Elevated liver function tests (R79.89) Active confirmed Problem 28430272 Preprocedural examination (Z01.818) Active confirmed Problem [id number] Elevated liver enzymes (R74.8) Active confirmed Plan Of Treatment Pending Test Test Name Order Date LIVER PROFILE 04/02/2016 IRON + IBC (FE) 04/02/2016 FERRITIN 04/02/2016 HEPATITIS B, C PROFILE 04/02/2016 [id number] (A1A) 04/02/2016 MITOCHONDRIAL AB 04/02/2016 SMOOTH MUSCLE ANTIBODIES 04/02/2016 FLUOR. ANTINUCLEAR AB SCREEN (HOANG) 03/24 Future Test Test Name Order Date COLONOSCOPY 02/18/2016 Insurance Providers Payer Name Payer Address Payer Phone Subscriber Number Group Number Insured Name Patient Relationship to Insured Coverage Start Date Coverage End Date [facility] [address] [place] [address] [id number] [id number] Self - patient is the insured Medical (General) History Medical History History ICD Code Colonoscopy 12-14-2004---hyperplastic bonnie yp, internal hemorrhoids Rheumatoid arthritis Sleep apnea-uses CPAP Denies IN,DM,CVA,Lung disease,renal dise ase Urethral stricture as below Pneumonia and bronchitis Surgical History Surgery Date(Month/Year) Left eye--orbital fracture, detached ret gloria--2 separate issues Urethral stricture--dilated
[2025-03-06 08:35] LABS: Hematocrit 40.2 % (42.0-52.0); Hemoglobin 13.4 g/dl (14.0-18.0); Mean Corpuscular HGB Conc 33.3 g/dl (31.0-36.0); Mean Corpuscular Hemoglobin 29.7 pg (27.0-33.0); Mean Corpuscular Volume 89.1 fL (80.0-98.0); NRBC Abs Auto 0.000 X10*3/uL (0.0-0.012); NRBC Pct Auto 0.0 /100WBC (0.0-0.2); Platelet Count 228 X10*3/uL (160-400); Red Blood Count 4.51 X10*6/uL (4.60-5.80); White Blood Count 9.4 X10*3/uL (4.8-10.8)
[2025-03-06 09:19] LABS: PSA,Total (Free>4and<10) 1.93 ng/mL (0.00-4.00)
[2025-03-12 14:09] LABS: Testosterone, Free 51.5 pg/mL (35.0-155.0)
== END 2025-03-06 07:50 | disposition home or self-care (01) ==
LOC: HO.LAB 07:49
PROVIDERS: Visit Provider Nurse Practitioner Family
DX: E29.1 Testicular hypofunction (principal)
CPT/HCPCS: 36415; 84153; 84402; 84403; 85027

== ENCOUNTER 2025-06-12 15:05 | Outpatient (AMB) | payer OTHER, SELFPAY ==
--- NOTE | 2025-06-12 15:29 | MHC.OFFVIS ---
Intake Visit Reasons: 6m/labs Intake Note: Patient is present for 6M/LABS Urology Medication:TADALAFIL Antibiotic Allergy:NONE Blood Thinner:NONE Terrestrial Ecologist Required: No Allergies No Known Allergies (No Known Allergies*) Allergy (Verified 06/12/25 15:32) [facility] Medical History Elevated blood sugar Transaminitis Elevated cholesterol HTN (hypertension) LOGAN (obstructive sleep apnea) Seropositive rheumatoid arthritis Encounter for general adult medical examination without abnormal findings Surgical History H/O eye surgery Hx of facial fracture repair History of detached retina repair Hx of colonoscopy H/O rectal polypectomy Family History Brother No problems noted. Brother No problems noted. Sister No problems noted. Sister No problems noted. Social History Housing: House Alcohol intake: current Patient Tobacco Use Status: Never used Tobacco Tobacco use type: Cigarette e-Cigarette/Vaping Use: Never Used Second Hand Smoke Exposure: No service: No Current occupational status: employed Current occupation: Psychotherapist, [employer] Cognitive needs: No Hearing needs: No Vision needs: Yes (Glasses) Results AMB Urinalysis, Automated UA Leukoctes 0 Mark/uL Last Edit by AWAIS Jaeger on 06/12/25 15:43 UA Nitrite Negative Last Edit by AWAIS Jaeger on 06/12/25 15:43 UA Urobilinogen 0.2 mg/dL Last Edit by AWAIS Jaeger on 06/12/25 15:43 UA Protein 0 mg/dL Last Edit by AWAIS Jaeger on 06/12/25 15:43 UA pH 6.0 Last Edit by AWAIS Jaeger on 06/12/25 15:43 UA Blood 0 Shine/uL Last Edit by AWAIS Jaeger on 06/12/25 15:43 UA Specific [place] 1.015 Last Edit by AWAIS Jaeger on 06/12/25 15:43 UA Ketone Negative Last Edit by AWAIS Jaeger on 06/12/25 15:43 UA Bilirubin 0 mg/dL Last Edit by AWAIS Jaeger on 06/12/25 15:43 UA Glucose 0 mg/dL Last Edit by AWAIS Jaeger on 06/12/25 15:43 Assessment & Plan Assessment & Plan Orders: Orders AMB Urinalysis Automated Today Z13.9 - Encounter for screening, unspecified Coding
--- OUTSIDE RECORDS SUMMARY | 2025-06-12 20:27 | XMS_ITS | Encounter Summary ---
Author Organization [facility] Address [address] [place] [address] Phone Care Team Providers Care Pi/Senior Research Associate Name Role Phone Eduardo Mcclain MD Primary Care Provider [phone] Encounter Details Date Type Department Care Team (Latest Contact Info) Description 09/19/2018 Prep for Surgery [facility] Ophthalmology [address] [place] [address] Louann Henriquez MD [address] [place] [phone] Linsey [email or web address] Posterior subcapsular polar senile cataract, left (Primary Dx) Social History Tobacco Use Types Packs/Day Years [...] documented as of this encounter Visit Diagnoses Diagnosis Posterior subcapsular polar senile cataract, left- Primary documented in this encounter Care Teams Pi/Senior Research Associate Relationship Specialty Start Date End Date Eduardo Mcclain MD [address] [place] [address] [place] [address] PCP - General Internal Medicine 02/28/18 documented as of this encounter Additional Source Comments The information contained in this document represents components of the legal health record. It is not the complete legal health record.[facility]
--- OUTSIDE RECORDS SUMMARY | 2025-06-12 20:27 | XMS_ITS | Clinical Summary ---
Author Organization [facility] Address [address] [place] [address] Phone Care Team Providers Care Clammer Name Role Phone Eduardo Mcclain MD Primary Care Provider Allergies No known active allergies Medications gemfibrozil (LOPID) 600 MG tablet Take 600 mg by mouth 2 (two) times a day before meals. Active ofloxacin (OCUFLOX) 0.3 % ophthalmic solution Place 1 drop into the left eye 4 (four) times a day. 3 days before surgery - use as directed 5 mL 1 9 Active Additional Information Patient not taking.Reported on 10/22/2018 ketorolac (ACULAR) 0.5 % ophthalmic solution Place 1 drop into the left eye 4 (four) times a day. Start 3 days before surgery Use as directed 5 mL 2 9 Active Additional Information Patient not taking.Reported on 10/22/2018 prednisoLONE acetate (PRED FORTE) 1 % ophthalmic suspension Place 1 drop into the left eye 4 (four) times a day. After surgery - taper as directed 5 mL 2 9 Active Additional Information Patient not taking.Reported on 10/22/2018 Active Problems Problem Noted Date Diagnosed Date Obstructive sleep apnea syndrome 09/25/2018 Social History Tobacco Use Types Packs/Day Years Used Date Smoking Tobacco: Never Smokeless Tobacco: Never Alcohol Use Standard Drinks/Week Comments Yes 0 (1 standard drink = 0.6 oz pur e alcohol) rare Education Answer Date Recorded Are you interested in more education? Not on ely e 11/18/2022 Are you concerned about learning? Not on file 11/18/2022 No 11/18/2022 No 11/18/2022 Digital Access Answer Date Recorded No 12/19/2022 No 12/19/2022 No 12/19/2022 Reliable internet access at home? Not on file 12/19/2022 Device with a working camera? Not on file Sex and Gender Information Value Date Recorded Sex Assigned at Not on file Legal Sex Male 3:47 PM EDT Gender Identity Not on file Sexual Orientation Not on file Last Filed Vital Signs Vital Sign Reading Time Taken Comments Blood Pressure 116/63 12/26/2018 4:30 PM EDT Pulse 90 12/26/2018 4:30 PM EDT Temperature 36.4 C (97.5 F) 12/26/2018 2:47 PM EDT Respiratory Rate 16 12/26/2018 4:30 PM EDT Oxygen Saturation 95% 12/26/2018 4:30 PM EDT Inhaled Oxygen Concentration - - Weight 122.5 kg (270 lb) 12/26/2018 10:16 AM EDT Height 165.1 cm (5' 5 ) 12/26/2018 10:16 AM EDT Body Mass Index 44.93 12/26/2018 10:16 AM EDT Plan of Treatment Health Maintenance Due Date Last Done Comments Adult Td,Tdap Booster 1965 LIPID PANEL 1965 DEPRESSION SCREENING 1977 HEPATITIS C SCREENING 1983 HIV ONE-TIME SCREENING (18-6 5 YEARS) 1983 COLOGUARD 2010 COLONOSCOPY 2010 COLORECTAL CANCER SCREENING 2010 FIT TEST 2010 FOBT 2010 SIGMOIDOSCOPY 2010 VIRTUAL COLONOSCOPY 2010 PNEUMOCOCCAL VACCINES (50+ y ears) (1 of 1 - PCV) 2015 ZOSTER VACCINES (1 of 2) 2015 INFLUENZA VACCINE (#1) 2025 COVID-19 VACCINE (2 - 2024-2 6 season) 2025 12/11/2020 RSV VACCINE (1 - 1-dose 75+ series) 01/03/2040 SMOKING STATUS SCREENING (On ce After 26 Yrs) Completed 05/04/2020 HEPATITIS A VACCINES Aged Out No long er eligible based on patient's age to complete this topic HIB VACCINES Aged Out No longer eligi ble based on patient's age to complete this topic MENINGOCOCCAL VACCINES (ACWY) Aged Out No longer eligible based on patient's age to complete this topic MENINGOCOCCAL VACCINES (B) Aged Out N o longer eligible based on patient's age to complete this topic Medical Devices Implanted Type Area Hotel Superintendent Device Identifier Shelf Expiration Date Model / Serial / Lot Eye Description:Left eye plastic plate and buckle Lens Intraocular Sn60wf 13.0d - [id number] Implanted:Qty: 1 on 09/25/2018 by Louann Henriquez MD at [facility] [address] Left: Eye [employer] 05/23/2021 SN60WF 13.0D / [id number] / Insurance [employer] Royal[employer] [facility] CHOICE [facility] CHOICE [facility] CHOICE [place] [phone] Advance Directives For more information, please contact: [phone] (9AM - 5PM [facility], Monday-Monday) * Full Code (Presumed) (Latest Code Status on File) Date Activated Date Inactivated Comments 09/25/2018 1:08 PM 09/25/2018 4:37 PM Care Teams Clammer Relationship Specialty Start Date End Date Eduardo Mcclain MD [address] [place] [address] [place] [address] PCP - General Internal Medicine 02/28/18 Additional Source Comments The information contained in this document represents components of the legal health record. It is not the complete legal health record.[facility]
--- OUTSIDE RECORDS SUMMARY | 2025-06-12 20:27 | XMS_ITS | Encounter Summary ---
Author Organization [facility] Address [address] [place] [address] Phone Care Team Providers Care Security Sales Manager Name Role Phone Eduardo Mcclain MD Primary Care Provider Encounter Details Date Type Department Care Team (Late st Contact Info) Description 09/25/2018 Procedure Pass [facility] LW PERIOP DEPT [address] [place] [address] Social History Tobacco Use Types Packs/Day Years [...] on filedocumented in this encounter Care Teams Security Sales Manager Relationship Specialty Start Date End Date Eduardo Mcclain MD [address] [place] [address] [place] [address] PCP - General Internal Medicine 02/28/18 documented as of this encounter Additional Source Comments The information contained in this document represents components of the legal health record. It is not the complete legal health record.[facility]
--- OUTSIDE RECORDS SUMMARY | 2025-06-12 20:27 | XMS_ITS | Patient Health Record ---
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 Section Notes: Nonsmoker; no sig alcohol Problems Problem Type SNOMED Code ICD Code Onset Dates Problem Status W/U Status Risk Notes Problem Screening for malignant neoplasm of colon (230043299) Encounter for screening for malignant neoplasm of colon (Z12.11) Active confirmed Problem Screening for malignant neoplasm of rectum (505793349) Encounter for screening for malignant neoplasm of rectum (Z12.12) Active confirmed Problem Elevated liver enzymes level (316310890) Elevated liver function tests (R79.89) Active confirmed Problem Preprocedural examination (675364727600365) Preprocedural examination (Z01.818) Active confirmed Problem Elevated liver enzymes level (115001354) Elevated liver enzymes (R74.8) Active confirmed Plan Of Treatment Pending Test Test Name Order Date LIVER PROFILE 04/02/2016 IRON + IBC (FE) 04/02/2016 FERRITIN 04/02/2016 HEPATITIS B, C PROFILE 04/02/2016 [id number] (A1A) 04/02/2016 MITOCHONDRIAL AB 04/02/2016 SMOOTH MUSCLE ANTIBODIES 04/02/2016 FLUOR. ANTINUCLEAR AB SCREEN (HOANG) 03/24 Future Test Test Name Order Date COLONOSCOPY 02/18/2016 Insurance Providers Payer Name Payer Address Payer Phone Subscriber Number Group Number Insured Name Patient Relationship to Insured Coverage Start Date Coverage End Date [facility] [address] [place] [address] [id number] SOFY SERRA Self - patient is the insured Medical (General) History Medical History History ICD Code Colonoscopy 12-14-2004---hyperplastic bonnie yp, internal hemorrhoids Rheumatoid arthritis Sleep apnea-uses CPAP Denies [place],DM,CVA,Lung disease,renal dise ase Urethral stricture as below Pneumonia and bronchitis Surgical History Surgery Date(Month/Year) Left eye--orbital fracture, detached ret gloria--2 separate issues Urethral stricture--dilated
--- OUTSIDE RECORDS SUMMARY | 2025-06-12 20:27 | XMS_ITS | Encounter Summary ---
Author Organization [facility] Address [address] [place] [address] Phone Care Team Providers Care Interactive Video Technician Name Role Phone Eduardo Mcclain MD Primary Care Provider [phone] Encounter Details Date Type Department Care Team (Late st Contact Info) Description 05/01/2020 Telephone [facility] [address] [address] Louann Jenkins MD [address] [place] [address] [email or web address] Social History Tobacco Use Types Packs/Day Years [...] on filedocumented in this encounter Care Teams Interactive Video Technician Relationship Specialty Start Date End Date Eduardo Mcclain MD [address] [place] [address] [place] [address] PCP - General Internal Medicine 02/28/18 documented as of this encounter Additional Source Comments The information contained in this document represents components of the legal health record. It is not the complete legal health record.[facility]
--- OUTSIDE RECORDS SUMMARY | 2025-06-12 20:27 | XMS_ITS | Encounter Summary ---
Author Organization [facility] Address [address] [place] [address] Phone Care Team Providers Care Edge Banding Machine Offbearer Name Role Phone Eduardo Mcclain MD Primary Care Provider [phone] Encounter Details Date Type Department Care Team (Late st Contact Info) Description 12/26/2018 Procedure Pass ZMEE 6TH FL PERIOP DEPT [address] [place] [address] Social History Tobacco Use Types Packs/Day Years [...] on filedocumented in this encounter Care Teams Edge Banding Machine Offbearer Relationship Specialty Start Date End Date Eduardo Mcclain MD [address] [place] [address] [place] [address] PCP - General Internal Medicine 02/28/18 documented as of this encounter Additional Source Comments The information contained in this document represents components of the legal health record. It is not the complete legal health record.[facility]
== END 2025-06-12 16:03 | disposition home or self-care (01) ==
LOC: HO.HUSH 15:06
PROVIDERS: Visit Provider Nurse Practitioner Family
DX: Z13.9 Encounter for screening, unspecified (principal)

== ENCOUNTER → 2025-06-12 15:05 | Outpatient (BNVA) | payer OTHER, SELFPAY | PROVIDERS: Visit Provider Nurse Practitioner Family | DX: Z13.9 Encounter for screening, unspecified (principal) | CPT/HCPCS: 81003 ==

== ENCOUNTER 2025-07-08 07:41 | Outpatient (REF) | payer OTHER, SELFPAY ==
[2025-07-08 09:32] LABS: Alanine Aminotransferase 39 U/L (0-40); Albumin Level 4.5 g/dL (3.5-5.0); Alkaline Phosphatase 100 U/L (39-117); Anion Gap 10 (12-20); Aspartate Amino Transferase 43 U/L (5-37); Blood Urea Nitrogen 18 mg/dL (9-16); Calcium 9.5 mg/dL (8.4-10.2); Carbon Dioxide 26 mmol/L (22-29); Chloride 107 mmol/L (96-108); Cholesterol 199 mg/dL (<200); Estimated Glomerular Filt Rate > 60; HDL Cholesterol 34 mg/dL (>40); Potassium 4.4 mmol/L (3.3-5.1); Sodium 139 mmol/L (135-145); Total Protein 7.3 g/dL (6.5-8.0); Triglycerides 265 mg/dL (<150)
[2025-07-08 09:44] LABS: Microalbum/Creatinine Ratio Ur 13.4 ug/mg cr (<30)
== END 2025-07-08 07:42 | disposition home or self-care (01) ==
LOC: HO.LAB 07:41
DX: Z00.00 Encounter for general adult medical examination without abnormal findings (principal); M17.0 Bilateral primary osteoarthritis of knee; E11.65 Type 2 diabetes mellitus with hyperglycemia; E78.00 Pure hypercholesterolemia, unspecified; M25.561 Pain in right knee; M25.562 Pain in left knee; R74.01 Elevation of levels of liver transaminase levels
CPT/HCPCS: 20610; 36415; 80053; 80061; 82043; 82570; 83036; J1010; J2003

== ENCOUNTER 2025-07-08 07:41 | Outpatient (AMB) | payer OTHER, SELFPAY ==
--- OUTSIDE RECORDS SUMMARY | 2025-07-08 07:45 | XMS_ITS | Clinical Summary ---
Author Organization [facility] Address [address] [place] [address] Phone Care Team Providers Care Director Distribution Name Role Phone Eduardo Mcclain MD Primary Care Provider [phone] Allergies No known active allergies Medications gemfibrozil [...] this topic Medical Devices Implanted Type Area Noise Abatement Engineer Device Identifier Shelf Expiration Date Model / Serial / Lot Eye Description:Left eye plastic plate and buckle Lens Intraocular Sn60wf 13.0d - [id number] Implanted:Qty: 1 on 09/25/2018 by Louann Henriquez MD [place] [facility] [address] Left: Eye sarvaMAIL 05/23/2021 SN60WF 13.0D / [id number] / Insurance [employer] [facility] CHOICE [facility] CHO[facility] CHO[facility] CHOICE [facility] CHOICE [facility] CHOICE [place] [phone] Advance Directives For more information, please contact: [phone] (9AM - 5PM [facility], Monday-Monday) * Full Code (Presumed) (Latest Code Status on File) Date Activated Date Inactivated Comments 09/25/2018 1:08 PM 09/25/2018 4:37 PM Care Teams Director Distribution Relationship Specialty Start Date End Date Eduardo Mcclain MD [address] [place] [address] [place] [address] PCP - General Internal Medicine 02/28/18 Additional Source Comments The information contained in this document represents components of the legal health record. It is not the complete legal health record.[facility]
--- OUTSIDE RECORDS SUMMARY | 2025-07-08 07:45 | XMS_ITS | Encounter Summary ---
Author Organization [facility] Address [address] [place] [address] Phone Care Team Providers Care Human Resources Associate Name Role Phone Eduardo Mcclain MD Primary Care Provider [phone] Encounter Details Date Type Department Care Team (Late st Contact Info) Description 09/25/2018 Procedure Pass ZMEE LW PERIOP DEPT [address] [place] [address] Social History Tobacco Use Types Packs/Day Years [...] on filedocumented in this encounter Care Teams Human Resources Associate Relationship Specialty Start Date End Date Eduardo Mcclain MD [address] [place] [address] [place] [address] PCP - General Internal Medicine 02/28/18 documented as of this encounter Additional Source Comments The information contained in this document represents components of the legal health record. It is not the complete legal health record.[facility]
--- OUTSIDE RECORDS SUMMARY | 2025-07-08 07:45 | XMS_ITS | Encounter Summary ---
Author Organization [facility] Address [address] [place] [address] Phone Care Team Providers Care Public Welfare Director Name Role Phone Eduardo Mcclain MD Primary Care Provider [phone] Encounter Details Date Type Department Care Team (Latest Contact Info) Description 09/19/2018 Prep for Surgery [facility] Ophthalmology [address] [place] [address] Louann Henriquez MD [address] [place] [address] Linsey [email or web address] Posterior subcapsular polar senile cataract, left (Primary [...] Primary documented in this encounter Care Teams Public Welfare Director Relationship Specialty Start Date End Date Eduardo Mcclain MD [address] [place] [address] [place] [address] PCP - General Internal Medicine 02/28/18 documented as of this encounter Additional Source Comments The information contained in this document represents components of the legal health record. It is not the complete legal health record.[facility]
--- OUTSIDE RECORDS SUMMARY | 2025-07-08 07:45 | XMS_ITS | Encounter Summary ---
Author Organization [facility] Address [address] [place] [address] Phone Care Team Providers Care Glass Block Installer Name Role Phone Eduardo Mcclain MD Primary Care Provider [phone] Encounter Details Date Type Department Care Team (Late st Contact Info) Description 12/26/2018 Procedure Pass ZMEE 6TH FL PERIOP DEPT [address] [place] [address] Social History Tobacco Use Types Packs/Day Years [...] on filedocumented in this encounter Care Teams Glass Block Installer Relationship Specialty Start Date End Date Eduardo Mcclain MD [address] [place] [address] [place] [address] PCP - General Internal Medicine 02/28/18 documented as of this encounter Additional Source Comments The information contained in this document represents components of the legal health record. It is not the complete legal health record.[facility]
--- OUTSIDE RECORDS SUMMARY | 2025-07-08 07:45 | XMS_ITS | Patient Health Record ---
Author Organization [facility] Address [address] [place] [address] Care Team Providers Care Juice Weigher Name Role Phone Eduardo Mcclain MD Primary Care Provider Benoit Brandt Unavailable [phone] Reason For Referral No Information Medications Medication [...] Problem Screening for malignant neoplasm of colon (751233449) Encounter for screening for malignant neoplasm of colon (Z12.11) Active confirmed Problem Screening for malignant neoplasm of rectum (331737029) Encounter for screening for malignant neoplasm of rectum (Z12.12) Active confirmed Problem Elevated liver enzymes level (957366134) Elevated liver function tests (R79.89) Active confirmed Problem Preprocedural examination (025315171346696) Preprocedural examination (Z01.818) Active confirmed Problem Elevated liver enzymes level (688587301) Elevated liver enzymes (R74.8) Active confirmed Plan Of Treatment Pending Test Test Name Order Date LIVER PROFILE 04/02/2016 IRON + IBC (FE) 04/02/2016 FERRITIN 04/02/2016 HEPATITIS B, C PROFILE 04/02/2016 [id number] (A1A) 04/02/2016 MITOCHONDRIAL AB 04/02/2016 SMOOTH MUSCLE ANTIBODIES 04/02/2016 FLUOR. ANTINUCLEAR AB SCREEN (HOANG) 03/24 Future Test Test Name Order Date COLONOSCOPY 02/18/2016 Insurance Providers Payer Name Payer Address Payer Phone Subscriber Number Group Number Insured Name Patient Relationship to Insured Coverage Start Date Coverage End Date [facility] [address] [place] [address] [id number] SOFY SERRA Self - patient is the insured Medical (General) History Medical History History ICD Code Colonoscopy 12-14-2004---hyperplastic bonnie yp, internal hemorrhoids Rheumatoid arthritis Sleep apnea-uses CPAP Denies [place],DM,CVA,Lung disease,renal dise ase Urethral stricture as below Pneumonia and bronchitis Surgical History Surgery Date(Month/Year) Left eye--orbital fracture, detached ret gloria--2 separate issues Urethral stricture--dilated
--- NOTE | 2025-07-08 07:46 | A.OFFVIS_ITS ---
Intake Visit Reasons: Bilateral knee pain Intake Note: Tru is a 60 year old male who presents with complaints of progressively worsening bilateral knee pains. He describes his pains as sharp in nature. His pains have gotten worse over the last few months in spite of continued non operative treatments. He has had cortisone injections which gave him fairly good relief. He has also tried Tylenol and anti-inflammatory medicines which gave him minimal relief. He wishes to hold off on surgery if at all possible. A Allergies No Known Allergies (No Known Allergies*) Allergy (Verified 07/08/25 07:46) Medication List - Last Reconciled 07/08/25 by Van Humphrey MD albuterol sulfate 90 mcg/actuation 2 puffs inhalation QID PRN amlodipine 10 mg PO DAILY 90 days cholecalciferol (vitamin D3) 25 mcg PO DAILY CPAP (CPAP Machine/Device) As directed auto 6-20 gemfibrozil 600 mg PO BID losartan 50 mg PO DAILY tadalafil (Cialis) 20 mg PO DAILY PRN 30 days tadalafil (Cialis) 5 mg PO DAILY 90 days testosterone 4 pumps topical DAILY 30 days PFSH Medical History Elevated blood sugar Transaminitis Elevated cholesterol HTN (hypertension) LOGAN (obstructive sleep apnea) Seropositive rheumatoid arthritis Encounter for general adult medical examination without abnormal findings Surgical History H/O eye surgery Hx of facial fracture repair History of detached retina repair Hx of colonoscopy H/O rectal polypectomy Family History Brother No problems noted. Brother No problems noted. Sister No problems noted. Sister No problems noted. Social History Housing: House Alcohol intake: current Patient Tobacco Use Status: Never used Tobacco Tobacco use type: Cigarette e-Cigarette/Vaping Use: Never Used Second Hand Smoke Exposure: No service: No Current occupational status: employed Current occupation: Psychotherapist, [employer] Cognitive needs: No Hearing needs: No Vision needs: Yes (Glasses) Physical Exam Const Other: Well-nourished well-developed very friendly male awake alert and oriented x3 in no acute distress Extrem Other: Bilateral knee examination shows minimal effusions, palpable crepitus with range of motion, pain with range of motion, no instability Office Procedures AMB Joint Injection/Aspiration Joint Injection/Aspiration Primary Site: Left Knee Prep: site was prepped using aseptic technique Injected: 40 mg of, DepoMedrol, with 3 mL of and 1% plain Lidocaine Procedure: The patient tolerated the procedure well Coding 36632 - Large joint Procedure code (CPT) selection complete AMB Joint Injection/Aspiration Joint Injection/Aspiration Primary Site: Right Knee Prep: site was prepped using aseptic technique Injected: 40 mg of, DepoMedrol, with 3 mL of and 1% plain Lidocaine Procedure: The patient tolerated the procedure well Coding 26527 - Large joint Procedure code (CPT) selection complete Results Reviewed Results Reviewed: X-rays of the patient's bilateral knees taken previously show joint space narrowing, subchondral sclerosis, no acute bony abnormalities Assessment & Plan Assessment & Plan (1) Pain in both knees: Code(s): M25.561 - Pain in right knee; M25.562 - Pain in left knee (2) Osteoarthritis of left knee: Code(s): M17.12 - Unilateral primary osteoarthritis, left knee Category: Medical (3) Osteoarthritis of right knee: Code(s): M17.11 - Unilateral primary osteoarthritis, right knee Category: Medical Plan Mr. Chavez presents with bilateral knee pains due to osteoarthritis. The risks and benefits of bilateral knee cortisone injections were discussed at length with the patient. The patient wished to proceed. He tolerated the injections well. He will continue with his home exercise program. He will contact me prior to his follow-up appointment in 3 months should any questions or concerns arise. Feel free to call me at any time should questions regarding his orthopedic management arise. I spent 21 minutes in reviewing the patient's records and imaging studies, edith suh the patient and documenting in the medical record. Orders: Orders AMB Joint Injection/Aspiration Today M17.12 - Unilateral primary osteoarthritis, left knee AMB Joint Injection/Aspiration Today M17.11 - Unilateral primary osteoarthritis, right knee Coding Level of Care Code Est Pt Level 3 (36625) Add On Problem Visit Only Diagnoses Pain in both knees M25.561; M25.562 Osteoarthritis of left knee M17.12 Osteoarthritis of right knee M17.11 CPT Codes Coding - 51101 Large joint: 12641 - Large joint ([id number]) Coding - 34906 Large joint: 42192 - Large joint (0976332334)
== END 2025-07-08 08:15 | disposition home or self-care (01) ==
LOC: HO.HOS 07:42
PROVIDERS: Visit Provider Orthopaedic Surgery
DX: M25.561 Pain in right knee (principal); M25.562 Pain in left knee; M17.0 Bilateral primary osteoarthritis of knee
CPT/HCPCS: 20610; 99213

== ENCOUNTER 2025-07-09 08:28 | Outpatient (AMB) | payer OTHER, SELFPAY ==
[2025-07-09 08:42] VITALS: BP 130/60; PULSE 60; TEMP 36.3; O2SAT 97; BMI 43.0
--- NOTE | 2025-07-09 08:42 | A.OFFPC_ITS ---
Vital Signs 3 07/09/25 08:42 Height 5 ft 5 in Weight 258 lb 6 oz BMI 43.0 BP 130/60 Blood Pressure Location Lt brachial Position Sitting Pulse 60 Pulse Source Pulse Oximeter Temp 97.3 F Temp Source Temporal Artery Scan Pulse Oximetry (%) 97 Oxygen Delivery Method Room Air Intake Visit Reasons: f/u DM and HLD Intake Note: Patient is here to follow up on DM, HLD. Bowling Ball Finisher Required: No Metal Bonding Worker: Not Required per policy Accompanied by: Self / Same As Patient Allergies No Known Allergies (No Known Allergies*) Allergy (Verified 07/09/25 08:48) Medication List - Last Reconciled 07/09/25 by Yvette Silverman PA-C albuterol sulfate 90 mcg/actuation 2 puffs inhalation QID PRN amlodipine 10 mg PO DAILY 90 days cholecalciferol (vitamin D3) 25 mcg PO DAILY CPAP (CPAP Machine/Device) As directed auto 6-20 gemfibrozil 600 mg PO BID losartan 50 mg PO DAILY tadalafil (Cialis) 20 mg PO DAILY PRN 30 days tadalafil (Cialis) 5 mg PO DAILY 90 days testosterone 4 pumps topical DAILY 30 days Tobacco use date assessed: 07/09/25 Dental Screening Dental Screen Date: 03/05/25 HPI f/u DM and HLD 2 HPI0 Details 60-year-old male with past medical histo ry of hypertension, morbid obesity, rheumatoid arthritis, obstructive sleep apnea on CPAP last seen 02/2025 coming in for follow up. In review of the notes, patient was seen by Orthopedics 07/17 bilateral knee injections were given plan to follow up in 3 months. Seen by urology 05/2025 testosterone was increased and continued on tadalafil plan to follow up in 3 months. Presenting with a follow-up for multiple chronic conditions. The patient reports his blood pressure has been much better and is managed with losartan. He is currently prescribed gemfibrozil twice daily but reports only taking it once a day in the morning. His triglycerides and LDL remain elevated. His blood sugar has shown improvement, with his A1c decreasing from 7.0 to 6.3, which he attributes to stopping fast food intake. His noticed a new skin lesion on his shoulder that does not bother him, and another lesion of concern. [facility] Medical History Elevated blood sugar Transaminitis Elevated cholesterol HTN (hypertension) LOGAN (obstructive sleep apnea) Seropositive rheumatoid arthritis Encounter for general adult medical examination without abnormal findings Surgical History H/O eye surgery Hx of facial fracture repair History of detached retina repair Hx of colonoscopy H/O rectal polypectomy Family History Brother No problems noted. Brother No problems noted. Sister No problems noted. Sister No problems noted. Social History Housing: House Alcohol intake: current Patient Tobacco Use Status: Never used Tobacco Tobacco use type: Cigarette e-Cigarette/Vaping Use: Never Used Second Hand Smoke Exposure: No service: No Current occupational status: employed Current occupation: Psychotherapist, [employer] Cognitive needs: No Hearing needs: No Vision needs: Yes (Glasses) Questionnaire Thrive Questionnaire Date Thrive assessed: 11/08/24 I am a: Patient What is your living situation today?: I have a steady place to live Within the past 12 months, did the food you bought not last and you didn't have the money to get more?: Never true Within the past 12 months, did you worry whether your food would run out before you got money to buy more?: Never true Do you have trouble paying for medicines?: No Do you have trouble getting transportation to medical appointments?: No Do you have trouble paying your heating and electricity bill?: No Do you have trouble taking care of your child, family member or friend?: No Do you have trouble with day-to-day activities such as bathing, preparing meals, shopping, managing finances, etc.?: No Are you currently unemployed and looking for a job?: No Are you interested in more education?: Yes Please select the resources that you would like help with: None Currently or been in a relationship where the following occur: No concerns reported THRIVE Score: 0 CHRISTY-7 AMB Questionnaire CHRISTY-7 Date CHRISTY - 7 assessed: 03/05/25 Source: Developed by Drs. Benoit Barroso, Clarita Edmonds, Jt Melendez and colleagues, with an educational mary jane from [employer]. Review of Systems Const Denies body aches, Denies chills, Denies fever(s), Denies headache(s) and Denies poor appetite Eyes Reports no additional complaints ENT Denies dizziness and Denies headache(s) Card Denies chest pain, Denies edema, Denies lightheadedness and Denies dyspnea Resp Denies dyspnea GI Denies nausea and Denies vomiting Reports no additional complaints Musc Reports no additional complaints and Denies abnormal gait Skin/Breast Reports system reviewed and no additional complaints, except as documented Neuro Denies abnormal gait, Denies dizziness and Denies headache(s) Psych Reports no additional complaints Physical exam (Primary Care) Vital Signs: Last Vital Signs Temp 97.3 F 07/09/25 08:42 Oxygen Delivery Method Room Air 07/09/25 08:42 BMI result Body Mass Index 43.0 Tobacco/Smoking Status: Tobacco use Status Tobacco use date assessed 07/09/25 07/09/25 08:42 Patient Tobacco Use Status Never used Tobacco 07/09/25 08:42 Tobacco use type Cigarette 07/09/25 08:42 e-Cigarette/Vaping Use Never Used 07/09/25 08:42 Thrive Assessment: Date of Thrive Assessment Date Thrive assessed 11/08/24 07/09/25 08:42 Currently or been in a relationship where the following occur: No concerns reported Const General: cooperative, healthy appearing, comfortable and no acute distress Orientation/consciousness: patient oriented x3 HENMT Head: Yes normocephalic Ears: hearing grossly normal bilaterally General nose exam: Normal external nose present Eyes General: appearance normal, both eyes and all related structures Conjunctivae: conjunctivae normal Neck Neck: Yes full ROM and Yes no lymphadenopathy Resp Effort & Inspection: normal respiratory effort Auscultation: clear to auscultation bilaterally, no crackles, no rales, no rhonchi and no wheezes Cardio Rate: regular rate Rhythm: regular rhythm Skin General skin exam: no rashes or lesions noted Full body images: 2 1. non tender pigmented skin tag 2. non tender scabbed skin lesion with irregular borders without bleeding Neuro General: patient oriented x3 Gait exam (Neuro): Normal gait present Extrem General: Yes normal to inspection, Yes full ROM and No edema Psych Affect: normal affect Attitude: cooperative Insight: Good insight present (Psych) Judgement: Good judgement present (Psych) Coding Level of Care Code Est Pt Level 3 (04383) Diagnoses Hypertension I10 Hyperlipidemia E78.5 Diabetes mellitus E11.9 Morbid obesity E66.01 LOGAN on CPAP G47.33 Skin lesion L98.9 Assessment & Plan Assessment & Plan (1) Hypertension: Code(s): I10 - Essential (primary) hypertension Category: Medical Plan: Continue on current blood pressure medication. Avoid salt intake and encourage healthy diet and regular exercise. (2) Hyperlipidemia: Code(s): E78.5 - Hyperlipidemia, unspecified Category: Medical Plan: Avoid foods that are high in cholesterol such as red meat, fried foods, eggs and baked goods. Triglyceride goal of less than 150 and LDL goal of less than 100. Recent labs show triglycerides of 265 mg/dL and LDL of 112 mg/dL. The patient reports non-adherence to his twice-daily gemfibrozil, taking it only once a day. Due to limited efficacy with once-daily dosing, gemfibrozil will be discontinued. The plan is to switch to a once-daily statin medication to improve adherence and better target his LDL cholesterol. A repeat lipid panel will be ordered in three months to assess the new regimen's effectiveness. (3) Diabetes mellitus: Code(s): E11.9 - Type 2 diabetes mellitus without complications Category: Medical Plan: Decrease the amount of carbohydrates such as pasta, bread, rice, and potatoes and limit the amount of sweets. Although fruits are generally healthy they should be eaten in moderation as they are still high in sugar. Hemoglobin A1c goal of less than 7%. The patient's HgbA1c has improved from 7.0 to 6.3 through dietary changes, specifically stopping fast food. No changes to the management plan are needed, and he will continue with lifestyle modifications without medication. (4) Morbid obesity: Code(s): E66.01 - Morbid (severe) obesity due to excess calories Category: Medical Plan: Healthy diet and regular exercise is encouraged. (5) LOGAN on CPAP: Code(s): G47.33 - Obstructive sleep apnea (adult) (pediatric) Category: Medical Plan: Uses CPAP faithfully at least 4 hours a night and benefits from this therapy. (6) Skin lesion: Code(s): L98.9 - Disorder of the skin and subcutaneous tissue, unspecified Category: Medical Plan: The patient presented with two skin lesions of concern. One lesion appears to be a benign pigmented skin tag, while the other is more concerning due to its different color and appearance as a non-healing scab. Given the possibility of a non-healing lesion representing a skin cancer, a referral will be sent to dermatology for further evaluation. Plan This note was constructed using voice recognition software. While every effort has been made to ensure accuracy and signal person, still areas may have been included sometimes these areas may affect the content or meeting of the given symptoms. Total time spent caring for the patient today was 20 minutes. This includes time spent before the visit reviewing the chart, time spent during the visit, and time spent after the visit and documentation. Patient was informed and verbally consented to the use of an ambient scribe for clinic note documentation during this visit. Orders: Orders 2 Liver Panel 3 Months R79.89 - Other specified abnormal findings of blood chemistry Hemoglobin A1c 3 Months E11.65 - Type 2 diabetes mellitus with hyperglycemia Lipid Panel 3 Months E78.00 - Pure hypercholesterolemia, unspecified Referrals 2 Dermatology Referral L98.9 - Disorder of the skin and subcutaneous tissue, unspecified Medications: New 2 atorvastatin (Lipitor) 10 mg PO DAILY 90 tabs 0RF Discontinued 2 gemfibrozil Discontinued Reason: Patient no longer taking 600 mg PO BID 180 tabs 3RF
--- OUTSIDE RECORDS SUMMARY | 2025-07-09 08:42 | XMS_ITS | Clinical Summary ---
Author Organization [facility] Address [address] [place] [address] Phone Care Team Providers Care Park Guide Name Role Phone Eduardo Mcclain MD Primary Care Provider [phone] Allergies No known active allergies Medications gemfibrozil [...] this topic Medical Devices Implanted Type Area Nitrate Operator Device Identifier Shelf Expiration Date Model / Serial / Lot Eye Description:Left eye plastic plate and buckle Lens Intraocular Sn60wf 13.0d - [id number] Implanted:Qty: 1 on 09/25/2018 by Louann Henriquez MD [place] [facility] [address] Left: Eye Smart [place] 05/23/2021 SN60WF 13.0D / [id number] / Insurance [employer] [facility] CHOICE [facility] CHO[facility] CHOICE [place] [phone] Advance Directives For more information, please contact: [phone] (9AM - 5PM [facility], Monday-Monday) * Full Code (Presumed) (Latest Code Status on File) Date Activated Date Inactivated Comments 09/25/2018 1:08 PM 09/25/2018 4:37 PM Care Teams Park Guide Relationship Specialty Start Date End Date Eduardo Mcclain MD [address] [place] [address] [place] [address] PCP - General Internal Medicine 02/28/18 Additional Source Comments The information contained in this document represents components of the legal health record. It is not the complete legal health record.[facility]
--- OUTSIDE RECORDS SUMMARY | 2025-07-09 08:42 | XMS_ITS | Patient Health Record ---
Author Organization [facility] Address [address] [place] [address] Care Team Providers Care Industrial Paramedic Name Role Phone Eduardo Mcclain MD Primary Care Provider Benoit Brandt Unavailable [phone] Reason For Referral No Information Medications Medication [...] Problem Screening for malignant neoplasm of colon (828181205) Encounter for screening for malignant neoplasm of colon (Z12.11) Active confirmed Problem Screening for malignant neoplasm of rectum (620041401) Encounter for screening for malignant neoplasm of rectum (Z12.12) Active confirmed Problem Elevated liver enzymes level (386467116) Elevated liver function tests (R79.89) Active confirmed Problem Preprocedural examination (866274412818408) Preprocedural examination (Z01.818) Active confirmed Problem Elevated liver enzymes level (593605690) Elevated liver enzymes (R74.8) Active confirmed Plan Of Treatment Pending Test Test Name Order Date LIVER PROFILE 04/02/2016 IRON + IBC (FE) 04/02/2016 FERRITIN 04/02/2016 HEPATITIS B, C PROFILE 04/02/2016 [id number] (A1A) 04/02/2016 MITOCHONDRIAL AB 04/02/2016 SMOOTH MUSCLE ANTIBODIES 04/02/2016 FLUOR. ANTINUCLEAR AB SCREEN (HOANG) 03/24 Future Test Test Name Order Date COLONOSCOPY 02/18/2016 Insurance Providers Payer Name Payer Address Payer Phone Subscriber Number Group Number Insured Name Patient Relationship to Insured Coverage Start Date Coverage End Date [facility] [address] [place] [address] [id number] SOFY SERRA Self - patient is the insured Medical (General) History Medical History History ICD Code Colonoscopy 12-14-2004---hyperplastic bonnie yp, internal hemorrhoids Rheumatoid arthritis Sleep apnea-uses CPAP Denies [place],DM,CVA,Lung disease,renal dise ase Urethral stricture as below Pneumonia and bronchitis Surgical History Surgery Date(Month/Year) Left eye--orbital fracture, detached ret gloria--2 separate issues Urethral stricture--dilated
--- OUTSIDE RECORDS SUMMARY | 2025-07-09 08:42 | XMS_ITS | Encounter Summary ---
Author Organization [facility] Address [address] [place] [address] Phone Care Team Providers Care Developmental Specialist Name Role Phone Eduardo Mcclain MD Primary Care Provider [phone] Encounter Details Date Type Department Care Team (Late st Contact Info) Description 12/26/2018 Procedure Pass ZMEE 6TH FL PERIOP DEPT [address] [place] [address] Social History Tobacco Use Types Packs/Day Years [...] on filedocumented in this encounter Care Teams Developmental Specialist Relationship Specialty Start Date End Date Eduardo Mcclain MD [address] [place] [address] [place] [address] PCP - General Internal Medicine 02/28/18 documented as of this encounter Additional Source Comments The information contained in this document represents components of the legal health record. It is not the complete legal health record.[facility]
--- OUTSIDE RECORDS SUMMARY | 2025-07-09 08:42 | XMS_ITS | Encounter Summary ---
Author Organization [facility] Address [address] [facility] [address] [place] [id number] Phone Care Team Providers Care Game Moderator Name Role Phone Eduardo Mcclain MD Primary Care Provider [phone] Encounter Details Date Type Department Care Team (Latest Contact Info) Description 09/19/2018 Prep for Surgery [facility] Ophthalmology [address] [place] [address] Louann Henriquez MD [address] [place] [id number] Linsey [email or web address]. [facility] Posterior subcapsular polar senile cataract, left (Primary [...] Primary documented in this encounter Care Teams Game Moderator Relationship Specialty Start Date End Date Eduardo Mcclain MD [address] [place] [address] [place] [address] PCP - General Internal Medicine 02/28/18 documented as of this encounter Additional Source Comments The information contained in this document represents components of the legal health record. It is not the complete legal health record.[facility]
--- OUTSIDE RECORDS SUMMARY | 2025-07-09 08:42 | XMS_ITS | Encounter Summary ---
Author Organization [facility] Address [address] [place] [phone] Phone Care Team Providers Care Concrete Tile Machine Operator Name Role Phone Eduardo Mcclain MD Primary Care Provider [phone] Encounter Details Date Type Department Care Team (Late st Contact Info) Description 09/25/2018 Procedure Pass [facility]IOP DEPT [address] [place] [address] Social History Tobacco Use Types Packs/Day Years [...] on filedocumented in this encounter Care Teams Concrete Tile Machine Operator Relationship Specialty Start Date End Date Eduardo Mcclain MD [address] [place] [address] [place] [address] PCP - General Internal Medicine 02/28/18 documented as of this encounter Additional Source Comments The information contained in this document represents components of the legal health record. It is not the complete legal health record.[facility]
== END 2025-07-09 09:03 | disposition home or self-care (01) ==
LOC: HO.HMCH 08:29
DX: I10 Essential (primary) hypertension (principal); E11.69 Type 2 diabetes mellitus with other specified complication; E66.01 Morbid (severe) obesity due to excess calories; Z68.41 Body mass index [BMI] 40.0-44.9, adult; E78.5 Hyperlipidemia, unspecified; G47.33 Obstructive sleep apnea (adult) (pediatric); L98.9 Disorder of the skin and subcutaneous tissue, unspecified